=== PATIENT | female | born 1955 | race Caucasian/White ===

== ENCOUNTER 2017-08-15 17:12 | Emergency (ER) | payer OTHER ==
[2017-08-15 17:44] VITALS: BP 162/91; PULSE 82; TEMP 98.3; BMI 29.9
--- NOTE | 2017-08-15 17:45 | PDOC ---
Rapid Medical Evaluation Time Seen by Provider: 08/15/17 17:40 Medical Evaluation: Allergies Allergy/AdvReac Type Severity Reaction Status Date / Time No Known Allergies Allergy Verified 06/03/15 11:44 I have performed a brief in-person evaluation of this patient. The patient presents with a chief complaint of: cough since yesterday. left sided pleural pain with cough Pertinent physical exam findings: lungs are CTA. normal respirations. very intermittent dry cough I have ordered the following: Nothing. The patient will proceed to the ED for further evaluation.
--- NOTE | 2017-08-15 18:21 | PDOC ---
History of Present Illness - General Chief Complaint: Pain Stated Complaint: SIDE PAIN Time Seen by Provider: 08/15/17 17:40 History Source: Patient Exam Limitations: No Limitations - History of Present Illness Initial Comments: 08/15/17 18:16 This is a 61-year-old woman with past medical history of CVA on Coumadin, hypertension, diabetes, mechanical aortic valve replacement who presents with 2 days of left-sided pleuritic chest pain while coughing. Patient states her was seen and evaluated for her Darline enteritis on August 11. Patient states she started to express is pain on August 12 accompanied with mild fever and chills and generalized fatigue which caused her to sleep through the Suz[place] celebration an epidural Day. She states the fever and fatigue have resolved but she now has this left-sided pleuritic pain while coughing. Patient reports she has been experiencing a dry cough since August 12. Past History - Past Medical History Allergies/Adverse Reactions: Allergies Allergy/AdvReac Type Severity Reaction Status Date / Time No Known Allergies Allergy Verified 08/15/17 17:44 Home Medications: Ambulatory Orders Gabapentin 300 mg PO DAILY 06/03/15 Metformin HCl 500 mg PO BID 06/03/15 Warfarin Sodium [Coumadin] 7 mg PO DAILY 06/03/15 Atorvastatin Ca [Lipitor] 40 mg PO HS 08/15/17 Enoxaparin Sodium [Lovenox] 80 mg SQ ASDIR 08/15/17 Insulin NPH Human Isophane [Humulin N] 100 unit SQ ASDIR 08/15/17 Levothyroxine [Synthroid -] 25 mcg PO DAILY 08/15/17 Lisinopril [Prinivil -] 40 mg PO DAILY 08/15/17 Mirtazapine 30 mg PO ASDIR 08/15/17 Nifedipine [Procardia Xl] 30 mg PO ASDIR 08/15/17 CVA: Yes (X2 RIGHT RESUDIAL WEAKNESS) COPD: No Diabetes: Yes HTN: Yes - Surgical History Cardiac Surgery: Yes (VALVE REPLACEMENT) - Immunization History Immunization Up to Date: Yes - Suicide/Smoking/Psychosocial Hx Smoking History: Never smoked Hx Alcohol Use: No Drug/Substance Use Hx: No Review of Systems - Review of Systems Able to Perform ROS?: Yes Is the patient limited Mongolian proficient: No Constitutional: Yes: See HPI HEENTM: No: Symptoms Reported Respiratory: Yes: See HPI Cardiac (ROS): No: Symptoms Reported ABD/GI: No: Symptoms Reported : No: Symptoms Reported Musculoskeletal: No: Symptoms Reported Integumentary: No: Symptoms Reported Neurological: No: Symptoms reported Endocrine: No: Symptoms Reported Hematologic/Lymphatic: No: Symptoms Reported *Physical Exam - Vital Signs Last Vital Signs Temp Pulse Resp BP Pulse Ox 98.3 F 82 20 162/91 97 08/15/17 17:40 08/15/17 17:40 08/15/17 17:40 08/15/17 17:40 08/15/17 17:40 - Physical Exam General Appearance: Yes: Appropriately Dressed. No: Apparent Distress HEENT: positive: TITO, Pharynx Normal Neck: positive: Trachea midline. negative: Stridor Respiratory/Chest: positive: Chest Tender (5th intercostal at mid axillilary line), Lungs Clear, Normal Breath Sounds. negative: Respiratory Distress, Accessory Muscle Use Cardiovascular: positive: Regular Rhythm, Regular Rate. negative: Murmur Gastrointestinal/Abdominal: positive: Normal Bowel Sounds, Soft. negative: Tender Extremity: positive: Normal Capillary Refill, Normal Inspection Integumentary: positive: Normal Color, Dry, Warm Neurologic: positive: Fully Oriented, Alert, Motor Strength 5/5 ED Treatment Course - RADIOLOGY Radiology Studies Ordered: Category Date Time Status CHEST PA & LAT [RAD] Stat Radiology 08/15/17 18:16 Ordered Medical Decision Making - Medical Decision Making 08/15/17 18:18 A/P: This is a 61-year-old woman with past medical history of CVA on Coumadin, hypertension, diabetes, mechanical aortic valve replacement who presents with 2 days of left-sided pleuritic chest pain while coughing. Patient states her was seen and evaluated for her Darline enteritis on August 11. Patient states she started to express is pain on August 12 accompanied with mild fever and chills and generalized fatigue which caused her to sleep through the s [employer] celebration an epidural Day. She states the fever and fatigue have resolved but she now has this left-sided pleuritic pain while coughing. Patient reports she has been experiencing a dry cough since August 12. Tender to palpation over the fifth rib in the midaxillary line. Patient did not cough during exam. Lungs clear to auscultation bilaterally. Patient speaking in long full sentences. Respirations are even and unlabored. No sensory muscle use use. Regular rate and rhythm. No murmur, rub or gallop is appreciated. Mechanical valve heard on auscultation. Abdomen soft nontender nondistended. Differential diagnosis include costochondritis versus pneumonia I'll perform a chest x-ray to evaluate for pneumonia. I will reevaluate patient after all testing is completed. 08/15/17 18:50 X-rays read by me: Cardiac silhouette is within normal limits. Surgical agapito visualized. Customer gargles clear. No consolidations or infiltrates noted. I will discharge patient home with strict return precautions. Patient is to take Motrin or Tylenol for pain. *DC/Admit/Observation/Transfer Diagnosis at time of Disposition: Costal chondritis - Discharge Dispostion Disposition: HOME Condition at time of disposition: Stable Admit: No - Referrals - Patient Instructions Additional Instructions: Take Tylenol or Motrin as needed for pain. Follow manufacturers instructions for appropriate dosage. Keep well-hydrated. Return to emergency department for shortness of breath, chest pain, fevers, difficulty breathing or any other concerns. Thank you very much for choosing us to provide your emergent healthcare needs. - Post Discharge Activity
== END 2017-08-15 19:07 | disposition home or self-care (01) ==
LOC: JERFT 17:12
DX: M94.0 Chondrocostal junction syndrome [Tietze] (principal); I10 Essential (primary) hypertension; M10.9 Gout, unspecified; Z79.4 Long term (current) use of insulin; I69.851 Hemiplegia and hemiparesis following other cerebrovascular disease affecting right dominant side; I11.9 Hypertensive heart disease without heart failure; Z95.4 Presence of other heart-valve replacement
CPT/HCPCS: 71046-TC; 99281-25

== ENCOUNTER 2018-04-07 15:58 | Emergency (ER) | payer OTHER ==
[2018-04-07 16:04] VITALS: BMI 29.9
[2018-04-07] MEDS ORDERED: diphenhydrAMINE HCL 25 MG CAPSULE (FP) PO ONE ×2 (16:32→16:36)
--- NOTE | 2018-04-07 16:40 | PDOC ---
History of Present Illness - General History Source: Patient Exam Limitations: No Limitations - History of Present Illness Initial Comments: 04/07/18 16:35 The patient is a 62F with a PMH of CVA, HTN, DM, mechanical aortic valve replacement who presents to the ER with complaints of pain in her legs. The patient states that 3 days ago, she felt bug bites on her R medial knee and L medial ankle. Since then, she has been itching them. Today, she woke up and felt like they were swollen and she felt generalized weakness. <Tino Quiñonez - Last Filed: 04/07/18 16:35> <Acacia Whitman - Last Filed: 04/07/18 18:28> - General Chief Complaint: Redness To Affected Area Stated Complaint: BOTH LEG PAIN Time Seen by Provider: 04/07/18 16:16 Past History - Past Medical History Cardiac Disorders: Yes (heart valve) CVA: Yes (X2 RIGHT RESUDIAL WEAKNESS) COPD: No Diabetes: Yes HTN: Yes - Surgical History Cardiac Surgery: Yes (VALVE REPLACEMENT) - Immunization History Immunization Up to Date: Yes - Suicide/Smoking/Psychosocial Hx Smoking History: Never smoked Hx Alcohol Use: No Drug/Substance Use Hx: No <Tino Quiñonez - Last Filed: 04/07/18 16:35> <Acacia Whitman - Last Filed: 04/07/18 18:28> - Past Medical History Allergies/Adverse Reactions: Allergies Allergy/AdvReac Type Severity Reaction Status Date / Time No Known Allergies Allergy Verified 08/15/17 17:44 Home Medications: Ambulatory Orders Gabapentin 300 mg PO DAILY 06/03/15 Warfarin Sodium [Coumadin] 7 mg PO DAILY 06/03/15 Atorvastatin Ca [Lipitor] 40 mg PO HS 08/15/17 Levothyroxine [Synthroid -] 25 mcg PO DAILY 08/15/17 Lisinopril [Prinivil -] 40 mg PO DAILY 08/15/17 Nifedipine [Procardia Xl] 30 mg PO ASDIR 08/15/17 Aspirin [Aspirin EC] 81 mg PO DAILY 04/07/18 Cephalexin [Keflex] 500 mg PO BID 5 Days #10 capsule 04/07/18 Glyburide/Metformin HCl [Glyburide-Metformin 5-500 mg] 1 each PO ASDIR 04/07/18 Ibuprofen 600 mg PO QID PRN 04/07/18 Insulin Glargine,Hum.rec.anlog [Lantus] 0 unit SQ ASDIR 04/07/18 Pioglitazone HCl 45 mg PO ASDIR 04/07/18 Ranitidine [Zantac -] 75 mg PO DAILY 04/07/18 *Physical Exam - Vital Signs Last Vital Signs Temp Pulse Resp BP Pulse Ox 98.6 F 86 18 132/51 100 04/07/18 16:01 04/07/18 16:01 04/07/18 16:01 04/07/18 16:01 04/07/18 16:01 <Tino Quiñonez - Last Filed: 04/07/18 16:35> - Vital Signs Last Vital Signs Temp Pulse Resp BP Pulse Ox 98.6 F 86 18 132/51 100 04/07/18 16:01 04/07/18 16:01 04/07/18 16:01 04/07/18 16:01 04/07/18 16:01 <Acacia Whitman - Last Filed: 04/07/18 18:28> ED Treatment Course - LABORATORY CBC & Chemistry Diagram: 04/07/18 17:05 04/07/18 17:05 - ADDITIONAL ORDERS Additional order review: Laboratory Results 04/07/18 04/07/18 17:05 17:05 PT with INR 50.90 H INR 4.50 H* Sodium 142 Potassium 3.8 Chloride 107 Carbon Dioxide 26 Anion Gap 9 BUN 13 Creatinine 0.7 Creat Clearance w eGFR > 60 Random Glucose 119 H Calcium 8.5 Total Bilirubin 0.4 AST 23 ALT 30 Alkaline Phosphatase 95 Total Protein 6.8 Albumin 3.4 04/07/18 17:05 RBC 4.67 MCV 82.4 MCHC 33.3 RDW 14.9 MPV 8.4 Neutrophils % 66.5 Lymphocytes % 22.2 Monocytes % 7.4 Eosinophils % 2.4 Basophils % 1.5 - Medications Given in the ED: ED Medications Discontinued Medications Generic Name Dose Route Start Last Admin Trade Name Freq PRN Reason Stop Dose Admin Diphenhydramine HCl 25 mg 04/07/18 16:32 04/07/18 16:51 Benadryl - PO 04/07/18 16:33 25 mg ONCE ONE Administration <Acacia Whitman - Last Filed: 04/07/18 18:28> *DC/Admit/Observation/Transfer <Tino Quiñonez - Last Filed: 04/07/18 16:35> <Acacia Whitman - Last Filed: 04/07/18 18:28> Diagnosis at time of Disposition: Cellulitis, Insect bite - Discharge Dispostion Disposition: HOME Condition at time of disposition: Improved - Prescriptions Prescriptions: Cephalexin [Keflex] 500 mg PO BID 5 Days #10 capsule - Patient Instructions Printed Discharge Instructions: Insect Bites and Stings (Alternative Therapy) Additional Instructions: you should hold your coumadin dose for one day. then you can take keflex 500 mg twice daily x 5 days. return for any problems or concerns. you should follow up with your doctor in 2 - 3 days to re check your coumadin levels. take benadryl 25mg ever 6 hrs as needed for itching.
[2018-04-07 17:13] LABS: BASO % 1.5 % (0-2.0); EOS % 2.4 % (0-4.5); HEMATOCRIT 38.4 % (32.4-45.2); HEMOGLOBIN 12.8 GM/dL (10.7-15.3); LYMPH % 22.2 % (8-40); MCH 27.4 pg (25.7-33.7); MCHC 33.3 g/dl (32.0-36.0); MEAN CELL VOLUME 82.4 fl (80-96); MEAN PLT VOLUME 8.4 fl (7.5-11.1); MONO % 7.4 % (3.8-10.2); NEUT % 66.5 % (42.8-82.8); PLATELET COUNT 227 K/MM3 (134-434); RBC 4.67 M/mm3 (3.60-5.2); RDW 14.9 % (11.6-15.6); WHITE BLOOD COUNT 7.8 K/mm3 (4.0-10.0)
--- NOTE | 2018-04-07 17:31 | PDOC ---
Attending Attestation - Resident Resident Name: Tino Quiñonez - ED Attending Attestation I have performed the following: I have examined & evaluated the patient, The case was reviewed & discussed with the resident, I agree w/resident's findings & plan, Exceptions are as noted - HPI HPI: 04/07/18 17:27 62 yo F with h/o mitral valv replacemetn DM HTN on coumadin here with c/o bug bit to right inner thigh. noted 4 days ago. has erythema, itching. was scratching. today felt redness was worse, started feeling fatigued, achy. no f/ c no cp no sob. was visiting family when she noticed it her mother who just . - Physicial Exam PE: 04/07/18 17:28 awake alert lungs clear bilaterally heart rrr no mrg. abd soft nt nd. ext wwp. right inner thigh with purpuritic, warm erythematous area, warmth. no crepitus. no appreciated leg edema. 2 + dp/ pt. - Medical Decision Making 04/07/18 17:29 differential cellulitis, allergic reaction to bug bite, brusing from being on coumadin. plan labs benadryl for itching. will jeannieley treat with abx for cellulitis. topical steroid.
[2018-04-07 17:37] LABS: ALBUMIN 3.4 g/dl (3.4-5.0); ALK PHOS 95 U/L (45-117); ANION GAP 9 MMOL/L (8-16); BILIRUBIN,TOTAL 0.4 mg/dL (0.2-1.0); BLOOD UREA NITROGEN 13 mg/dL (7-18); CALCIUM 8.5 mg/dL (8.5-10.1); CHLORIDE 107 mmol/L (98-107); CO2 26 mmol/L (21-32); CREATININE 0.7 mg/dL (0.55-1.02); GLUCOSE,RANDOM 119 mg/dL (74-106); POTASSIUM 3.8 mmol/L (3.5-5.1); PROTHROMBIN TIME (PATIENT) 50.9 SEC (9.7-13.0); SGOT/AST 23 U/L (15-37); SGPT/ALT 30 U/L (12-78); SODIUM 142 mmol/L (136-145); TOT PROT 6.8 g/dl (6.4-8.2)
[2018-04-07 17:40] LABS: INR 4.5 (0.83-1.09)
[2018-04-07] MEDS ORDERED: SULFAMETHOXAZOLE/TRIMETHOPRIM 800MG/160MG D.S. TABLET PO ONE (18:21)
[2018-04-07] MEDS ORDERED: CEPHALEXIN MONOHYDRATE 500 MG CAPSULE (UD) PO ONE (18:28)
[2018-04-07] MEDS ORDERED: CEPHALEXIN MONOHYDRATE 500 MG CAPSULE (UD) ONE (18:50)
[2018-04-07] MEDS ORDERED: SULFAMETHOXAZOLE/TRIMETHOPRIM 800MG/160MG D.S. TABLET ONE (18:51)
[2018-04-07 19:01] VITALS: BP 147/79; PULSE 69; TEMP 97.9
== END 2018-04-07 19:00 | disposition home or self-care (01) ==
LOC: JER 15:58
DX: S80.862A Insect bite (nonvenomous), left lower leg, initial encounter (principal); S80.861A Insect bite (nonvenomous), right lower leg, initial encounter; L03.116 Cellulitis of left lower limb; L03.115 Cellulitis of right lower limb; W57.XXXA Bitten or stung by nonvenomous insect and other nonvenomous arthropods, initial encounter; Y93.89 Activity, other specified; Y92.89 Other specified places as the place of occurrence of the external cause; Y99.8 Other external cause status; I10 Essential (primary) hypertension; E11.9 Type 2 diabetes mellitus without complications; I69.851 Hemiplegia and hemiparesis following other cerebrovascular disease affecting right dominant side; Z95.4 Presence of other heart-valve replacement; Z79.01 Long term (current) use of anticoagulants; Z79.4 Long term (current) use of insulin; Z79.84 Long term (current) use of oral hypoglycemic drugs
CPT/HCPCS: 36415; 80053; 85025; 85610; 99281-25

== ENCOUNTER 2018-07-03 21:20 | Emergency (ER) | payer OTHER ==
--- NOTE | 2018-07-03 21:32 | PDOC ---
Rapid Medical Evaluation Time Seen by Provider: 07/03/18 21:28 Medical Evaluation: Allergies Allergy/AdvReac Type Severity Reaction Status Date / Time No Known Allergies Allergy Verified 08/15/17 17:44 07/03/18 21:29 I have performed a brief in-person evaluation of this patient. The patient presents with a chief complaint of: b/l knee pain and right wrist pain s/p trip and fall. Td-UTD Pertinent physical exam findings: swelling and tenderness to radial aspect of right wrist I have ordered the following: xrays The patient will proceed to the ED for further evaluation. Discharge Disposition - Diagnosis Wrist pain, right - Referrals - Patient Instructions - Post Discharge Activity
[2018-07-03] MEDS ORDERED: IBUPROFEN 600 MG TABLET (FP) PO ONE ×2 (21:33→21:53)
[2018-07-03 21:35] VITALS: BP 141/75; PULSE 83; TEMP 97.8; BMI 29.8
--- NOTE | 2018-07-03 22:11 | PDOC ---
History of Present Illness - General Chief Complaint: Injury Stated Complaint: FALL,INJURY Time Seen by Provider: 07/03/18 21:28 - History of Present Illness Initial Comments: 07/03/18 22:07 62-year-old female with a past medical history significant for mechanical valve she is on heparin and Coumadin diabetes as well as diabetic neuropathy hypertension presents for evaluation after a fall. She states she fell onto her left knee also breaking her fall with her right hand she fell in a closed fist position on the right hand in the anterior aspect of her right knee. She did not hit her head. Her bigger complaint is right hand pain. Past History - Past Medical History Allergies/Adverse Reactions: Allergies Allergy/AdvReac Type Severity Reaction Status Date / Time No Known Allergies Allergy Verified 07/03/18 21:35 Home Medications: Ambulatory Orders Gabapentin 300 mg PO DAILY 06/03/15 Warfarin Sodium [Coumadin] 7 mg PO DAILY 06/03/15 Atorvastatin Ca [Lipitor] 40 mg PO HS 08/15/17 Levothyroxine [Synthroid -] 25 mcg PO DAILY 08/15/17 Lisinopril [Prinivil -] 40 mg PO DAILY 08/15/17 Nifedipine [Procardia Xl] 30 mg PO ASDIR 08/15/17 Glyburide/Metformin HCl [Glyburide-Metformin 5-500 mg] 1 each PO ASDIR 04/07/18 Insulin Glargine,Hum.rec.anlog [Lantus] 0 unit SQ ASDIR 04/07/18 Pioglitazone HCl 45 mg PO ASDIR 04/07/18 Ranitidine [Zantac -] 75 mg PO DAILY 04/07/18 Cardiac Disorders: Yes (heart valve) CVA: Yes (X2 RIGHT RESUDIAL WEAKNESS) COPD: No Diabetes: Yes HTN: Yes - Surgical History Cardiac Surgery: Yes (VALVE REPLACEMENT) - Immunization History Immunization Up to Date: Yes - Suicide/Smoking/Psychosocial Hx Smoking History: Never smoked Have you smoked in the past 12 months: No Information on smoking cessation initiated: No Hx Alcohol Use: No Drug/Substance Use Hx: No Substance Use Type: None Review of Systems - Review of Systems Musculoskeletal: Yes: Joint Pain *Physical Exam - Vital Signs Last Vital Signs Temp Pulse Resp BP Pulse Ox 97.8 F 83 18 141/75 100 07/03/18 21:33 07/03/18 21:33 07/03/18 21:33 18 21:33 07/03/18 21:33 - Physical Exam Comments: 07/03/18 22:08 Right hand skin color and temperature are normal there is swelling about the MCPJ's. There is full range of motion of all the fingers diffuse tenderness throughout the dorsum of the hand no gross sensorimotor deficits she's neurovascularly intact. There is a small superficial abrasion on the anterior aspect of the left knee full range of motion no instability buying calf are soft and nontender she has no gross sensorimotor deficits she's neurovascularly intact ED Treatment Course - Medications Given in the ED: ED Medications Discontinued Medications Generic Name Dose Route Start Last Admin Trade Name Freq PRN Reason Stop Dose Admin Ibuprofen 600 mg 07/03/18 21:33 07/03/18 22:01 Motrin - PO 07/03/18 21:34 600 mg ONCE ONE Administration Medical Decision Making - Medical Decision Making 07/03/18 22:09 X-ray show a left distal radius fracture which is old the distal radial inclination is off and shortened fractures well-healed no fracture about the MCPJ's *DC/Admit/Observation/Transfer Diagnosis at time of Disposition: Knee abrasion, Knee contusion, Hand contusion Diagnosis at time of Disposition: (Ruled Out): Wrist pain, right - Discharge Dispostion Disposition: HOME Condition at time of disposition: Stable Decision to Admit order: No - Referrals Referrals: Dwayne Marquis MD [Staff Physician] - - Patient Instructions Printed Discharge Instructions: How to Prevent Falls, Contusion, DI for Abrasion Additional Instructions: Return to the emergency room should her pain increase or go unresolved otherwise follow-up with orthopedic surgery in 2-3 days for further evaluation and treatment options. The abrasion on any can be clean with soap and water and left open to air. Because of the medications you are taking you can only take Tylenol for pain at this point please take Tylenol as directed should you needed - Post Discharge Activity
== END 2018-07-03 22:14 | disposition home or self-care (01) ==
LOC: JERFT 21:20
DX: S60.221A Contusion of right hand, initial encounter (principal); S80.02XA Contusion of left knee, initial encounter; S80.01XA Contusion of right knee, initial encounter; S80.212A Abrasion, left knee, initial encounter; W01.0XXA Fall on same level from slipping, tripping and stumbling without subsequent striking against object, initial encounter; Y93.89 Activity, other specified; Y92.89 Other specified places as the place of occurrence of the external cause; I10 Essential (primary) hypertension; E11.42 Type 2 diabetes mellitus with diabetic polyneuropathy; Z79.84 Long term (current) use of oral hypoglycemic drugs; Z79.01 Long term (current) use of anticoagulants; Z95.2 Presence of prosthetic heart valve; Z79.4 Long term (current) use of insulin; I69.851 Hemiplegia and hemiparesis following other cerebrovascular disease affecting right dominant side
CPT/HCPCS: 73110-TC-RT-FY; 73130-TC-RT-FY; 99281-25

== ENCOUNTER 2018-08-18 22:20 | Observation (INO) | payer OTHER ==
--- NOTE | 2018-08-18 22:23 | PDOC ---
History of Present Illness - General Stated Complaint: CHEST PAIN Time Seen by Provider: 08/18/18 22:23 - History of Present Illness Initial Comments: 08/18/18 22:35 Ms. 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 Patient reports she has been otherwise asymptomatic. The patient denies chest pain, shortness of breath, headache and dizziness. Denies fever, chills, nausea, vomit, diarrhea and constipation. Denies dysuria, frequency, urgency and hematuria. Past History - Past Medical History Allergies/Adverse Reactions: Allergies Allergy/AdvReac Type Severity Reaction Status Date / Time No Known Allergies Allergy Verified 07/03/18 21:35 Home Medications: Ambulatory Orders Gabapentin 300 mg PO DAILY 06/03/15 Warfarin Sodium [Coumadin] 7 mg PO DAILY 06/03/15 Atorvastatin Ca [Lipitor] 40 mg PO HS 08/15/17 Levothyroxine [Synthroid -] 25 mcg PO DAILY 08/15/17 Lisinopril [Prinivil -] 40 mg PO DAILY 08/15/17 Nifedipine [Procardia Xl] 30 mg PO ASDIR 08/15/17 Glyburide/Metformin HCl [Glyburide-Metformin 5-500 mg] 1 each PO ASDIR 04/07/18 Insulin Glargine,Hum.rec.anlog [Lantus] 0 unit SQ ASDIR 04/07/18 Pioglitazone HCl 45 mg PO ASDIR 04/07/18 Ranitidine [Zantac -] 75 mg PO DAILY 04/07/18 Cardiac Disorders: Yes (heart valve) CVA: Yes (X2 RIGHT RESUDIAL WEAKNESS) COPD: No Diabetes: Yes HTN: Yes - Surgical History Cardiac Surgery: Yes (VALVE REPLACEMENT) - Immunization History Immunization Up to Date: Yes - Suicide/Smoking/Psychosocial Hx Smoking History: Never smoked Have you smoked in the past 12 months: No Hx Alcohol Use: No Drug/Substance Use Hx: No Substance Use Type: None Review of Systems - Review of Systems Comments:: 08/18/18 22:40 GENERAL/CONSTITUTIONAL: No fever or chills. No weakness. HEAD, EYES, EARS, NOSE AND THROAT: No change in vision. No ear pain or discharge. No sore throat. CARDIOVASCULAR: +Palpitations as described. No chest pain or shortness of breath RESPIRATORY: No cough, wheezing, or hemoptysis. GASTROINTESTINAL: No nausea, vomiting, diarrhea or constipation. GENITOURINARY: No dysuria, frequency, or change in urination. MUSCULOSKELETAL: No joint or muscle swelling or pain. No neck or back pain. SKIN: No rash NEUROLOGIC: No headache, vertigo, loss of consciousness, or change in strength/ sensation. ENDOCRINE: No increased thirst. No abnormal weight change HEMATOLOGIC/LYMPHATIC: No anemia, easy bleeding, or history of blood clots. ALLERGIC/IMMUNOLOGIC: No hives or skin allergy. *Physical Exam - Physical Exam Comments: 08/18/18 22:40 GENERAL: Awake, alert, and fully oriented, in no acute distress HEAD: No signs of trauma, normocephalic, atraumatic EYES: PERRLA, EOMI, sclera anicteric, conjunctiva clear ENT: Auricles normal inspection, hearing grossly normal, nares patent, oropharynx clear without exudates. Moist mucosa NECK: Normal ROM, supple, no lymphadenopathy, JVD, or masses LUNGS: No distress, speaks full sentences, clear to auscultation bilaterally HEART: Regular rate and rhythm, normal S1 and S2, no murmurs, rubs or gallops, peripheral pulses normal and equal bilaterally. ABDOMEN: Soft, nontender, normoactive bowel sounds. No guarding, no rebound. No masses EXTREMITIES: Normal inspection, Normal range of motion, no edema. No clubbing or cyanosis. NEUROLOGICAL: Cranial nerves II through XII grossly intact. Normal speech, normal gait, no focal sensorimotor deficits SKIN: Warm, Dry, normal turgor, no rashes or lesions noted. Heart Score/ECG Review - History History: Moderately suspicious - Electrocardiogram EKG: Non specific repolarization disturbance - Age Age: 45-65 - Risk Factors Risk Factors Heart Score: Yes Hx Hypercholesterolemia, Yes Hx Hypertension, Yes Hx Diabetes Based on the list above the patient has:: >/=3 risk factors or Hx atherosclerotic disease - Troponin Troponin: 1-3x normal limit - Score Heart Score - Total: 6 ED Treatment Course - LABORATORY CBC & Chemistry Diagram: 08/18/18 23:00 08/18/18 23:00 Medical Decision Making - Medical Decision Making 08/18/18 23:26 Ms. Vasquez is a 62 yo female w/ pmh as described who presents for evaluation of symptoms concerning for ACS vs. anxiety vs. infectious process vs. mechanical valve problem. Patient well appearing at presentation. Cardiac, infectious, and electrolyte labs sent for evaluation. 08/19/18 01:05 Labs concerning for elevated troponin as below. Will admit patient for serial troponins and cardiac f/u. Laboratory Results - last 24 hr 08/18/18 08/18/18 08/18/18 23:00 23:00 23:00 WBC 7.8 RBC 4.90 Hgb 13.8 Hct 39.9 MCV 81.4 MCH 28.1 MCHC 34.6 RDW 15.1 Plt Count 237 MPV 8.9 Absolute Neuts (auto) 4.9 Neutrophils % 62.7 Lymphocytes % 27.4 D Monocytes % 7.3 Eosinophils % 1.8 Basophils % 0.8 Nucleated RBC % 0 PT with INR 32.50 H INR 2.73 H Sodium 137 Potassium 4.4 Chloride 104 Carbon Dioxide 27 Anion Gap 7 L BUN 22 H Creatinine 0.9 Creat Clearance w eGFR > 60 Random Glucose 345 H* Calcium 8.2 L Total Bilirubin 0.3 AST 27 ALT 33 Alkaline Phosphatase 132 H Creatine Kinase 174 Creatine Kinase Index 0.9 CK-MB (CK-2) 1.6 Troponin I 0.06 H Total Protein 6.8 Albumin 3.2 L *DC/Admit/Observation/Transfer Diagnosis at time of Disposition: Elevated troponin, Palpitations - Discharge Dispostion Decision to Admit order: Yes - Referrals - Patient Instructions - Post Discharge Activity
[2018-08-18 22:45] VITALS: BMI 31.8
--- NOTE | 2018-08-18 22:46 | PDOC ---
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 She notes since arriving to the hospital she has been asymptomatic. She denies recent chest pain or shortness of breath. She denies recent fevers, chills, headache or dizziness. She denies recent nausea, vomit, diarrhea or constipation. She denies recent dysuria, frequency, urgency or hematuria. Allergies: NKDA - Physicial Exam PE: 08/18/18 23:28 GENERAL: Awake, alert, and fully oriented, in no acute distress HEAD: No signs of trauma ENT: Auricles normal inspection, hearing grossly normal, nares patent, oropharynx clear without exudates. Moist mucosa NECK: Normal ROM, supple, no lymphadenopathy, JVD, or masses LUNGS: Breath sounds equal, clear to auscultation bilaterally. No wheezes, and no crackles HEART: Regular rate and rhythm, normal S1 and S2, no murmurs, rubs or gallops ABDOMEN: Soft, nontender, normoactive bowel sounds. No guarding, no rebound. No masses EXTREMITIES: Normal range of motion, no edema. No clubbing or cyanosis. No cords, erythema, or tenderness NEUROLOGICAL: Cranial nerves II through XII grossly intact. Normal speech, normal gait SKIN: Warm, Dry, normal turgor, no rashes or lesions noted. <Ronnie Woodard - Last Filed: 08/18/18 23:28> - Resident Resident Name: Tadeo Sawyer - ED Attending Attestation I have performed the following: I have examined & evaluated the patient, The case was reviewed & discussed with the resident, I agree w/resident's findings & plan - Medical Decision Making 08/18/18 23:37 Pt comes with palpitations that went on for an hour or more; pt is upset because her palpitations in the past were related to he caffeine intake. Pt states that she hasn't had caff today; only drinking water and she has never had palpitaions that lasts so long. She has sig. cardiac hx with valve replacement 22 yrs ago when she had rheumatic valve dz. 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 <Emi Briscoe - Last Filed: 08/18/18 23:39> Heart Score/ECG Review - ECG Intrepretation Rhythm: Irregularly Irregular - [place]: Normal - P and MD Delta Wave(s) Present: No WPW: No - QRS Poor R Wave Progression: No Q Wave Present: No - ECG Impressions Normal ECG: No Non-specific ST Elevation: No Ischemic Changes: No Comment:: 08/18/18 22:45 Patient has no P waves. <Emi Briscoe - Last Filed: 08/18/18 23:39> Attestations - Attestations 08/18/18 23:01 Documentation prepared by Ronnie Woodard, acting as veterinary medical officer for Emi Briscoe MD. <Ronnie Woodard - Last Filed: 08/18/18 23:28>
[2018-08-18 23:20] LABS: BASO % 0.8 % (0-2.0); EOS % 1.8 % (0-4.5); HEMATOCRIT 39.9 % (32.4-45.2); HEMOGLOBIN 13.8 GM/dL (10.7-15.3); LYMPH % 27.4 % (8-40); MCH 28.1 pg (25.7-33.7); MCHC 34.6 g/dl (32.0-36.0); MEAN CELL VOLUME 81.4 fl (80-96); MEAN PLT VOLUME 8.9 fl (7.5-11.1); MONO % 7.3 % (3.8-10.2); NEUT % 62.7 % (42.8-82.8); PLATELET COUNT 237 K/MM3 (134-434); RDW 15.1 % (11.6-15.6); WHITE BLOOD COUNT 7.8 K/mm3 (4.0-10.0)
[2018-08-18 23:34] LABS: INR 2.73 (0.83-1.09); PROTHROMBIN TIME (PATIENT) 32.5 SEC (9.7-13.0)
[2018-08-19 00:26] LABS: ALBUMIN 3.2 g/dl (3.4-5.0); ALK PHOS 132 U/L (45-117); ANION GAP 7 MMOL/L (8-16); BILIRUBIN,TOTAL 0.3 mg/dL (0.2-1); BLOOD UREA NITROGEN 22 mg/dL (7-18); CALCIUM 8.2 mg/dL (8.5-10.1); CHLORIDE 104 mmol/L (98-107); CO2 27 mmol/L (21-32); CREATININE 0.9 mg/dL (0.55-1.3); POTASSIUM 4.4 mmol/L (3.5-5.1); SGOT/AST 27 U/L (15-37); SGPT/ALT 33 U/L (13-61); SODIUM 137 mmol/L (136-145); TOT PROT 6.8 g/dl (6.4-8.2)
[2018-08-19 01:03] LABS: GLUCOSE,RANDOM 345 mg/dL (74-106)
--- NOTE | 2018-08-19 02:29 | PN ---
Teaching Attending Note Name of Resident: Tangela Ortiz ATTENDING PHYSICIAN STATEMENT I saw and evaluated the patient. I reviewed the resident's note and discussed the case with the resident. I agree with the resident's findings and plan as documented. 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 She notes since arriving to the hospital she has been asymptomatic. She denies recent chest pain or shortness of breath. She denies recent fevers, chills, headache or dizziness. She denies recent nausea, vomit, diarrhea or constipation. She denies recent dysuria, frequency, urgency or hematuria. OBJECTIVE: Alert Vital Signs Period Temp Pulse Resp BP Sys/[place] Pulse Ox Last 24 Hr 98.2 F 79-79 19-19 124-124/68-68 99-99 HEENT: No Jaundice, eye redness or discharge, PERRLA, EOMI. Normocephalic, atraumatic. External ears are normal and hearing is grossly intact. No nasal discharge. Neck: Supple, nontender. No palpable adenopathy or thyromegaly. No JVD Chest: Good effort. Clear to auscultation and percussion. Heart: Regular. No S3, rub or murmur Abdomen: Not distended, soft, nontender and no HSM. No rebound or guarding. Normoactive bowel sounds. Ext: Peripheral pulses intact. No leg edema. Skin: Warm and dry. No petechiae, rash or ecchymosis. Neuro: Alert. Oriented x3. CN 2-12 grossly intact. Sensation grossly intact in all four extremities and DTR are symmetric. Home Medications Medication Instructions Recorded Gabapentin 300 mg PO DAILY 06/03/15 Warfarin Sodium [Coumadin] 7 mg PO DAILY 06/03/15 Atorvastatin Ca [Lipitor] 40 mg PO HS 08/15/17 Levothyroxine [Synthroid -] 25 mcg PO DAILY 08/15/17 Lisinopril [Prinivil -] 40 mg PO DAILY 08/15/17 Nifedipine [Procardia Xl] 30 mg PO ASDIR 08/15/17 Glyburide/Metformin HCl 1 each PO ASDIR 04/07/18 [Glyburide-Metformin 5-500 mg] Insulin Glargine,Hum.rec.anlog 0 unit SQ ASDIR 04/07/18 [Lantus] Pioglitazone HCl 45 mg PO ASDIR 04/07/18 Ranitidine [Zantac -] 75 mg PO DAILY 04/07/18 Abnormal Lab Results 08/18/18 08/18/18 23:00 23:00 PT with INR 32.50 H INR 2.73 H Anion Gap 7 L BUN 22 H Random Glucose 345 H* Calcium 8.2 L Alkaline Phosphatase 132 H Troponin I 0.06 H Albumin 3.2 L ASSESSMENT AND PLAN: 1. Palpitations, rule out ACS - No ischemic changes on EKG but troponin is elevated. Will admit to telemetry to trend troponin to rule out ACS. Will hold procardia XL in case it is contributing to palpitations (?reflex tachycardia), add metoprolol, continue aspirin, check TFT, ECHO, fasting lipids, urine toxicology and consult cardiology. 2. DM - For now, we will hold the home diabetes drugs and implement sliding scale insulin regimen. Provide comprehensive diabetes care with patient teaching and counseling about the importance of euglycemia, eye care and foot care. 3. Obesity - Will provide patient all the necessary assistance, counseling and positive reinforcement to facilitate weight loss. Consult floor hand. 4. DVT prophylaxis - On coumadin 5. Advance directives - Full code
--- NOTE | 2018-08-19 03:34 | HP ---
CHIEF COMPLAINT: Palpitations PCP: HISTORY OF PRESENT ILLNESS: 62 y/o F with PMHx of Mechanical Aortic Valve (On Coumadin), CVA (R sided residual weakness), DM, HTN, Hypothyroidism, HLD who was BIBEMS for Palpitations. Patient was with her family earlier today cooking in the kitchen. Around 3pm, she felt anxious and overlwelhmed due to so many people around her. Shortly after, she had sudden onset of palpitations that lasted until she arrived home around 7pm. Patient tried to go for a long walk and to calm herself down however these provided minimal relief. Upon arriving home, she contact EMS. She mentions this happened to her last year however at that time, the episodes lasted for minutes and reducing her caffeine intake helped these subside. Patient additionally endorses Shoulder and neck pain, SOB, intermittent blurry vision, chronic pins and needles below the mid calf b/l. She is unable to identify any triggers or alleviating factors. Denies any recent increased Stress in her life. Denies any hx of anxiety or panic attacks. Denies fevers, chills, chest pain, nausea, vomiting, diarrhea, constipation, decreased PO intake. Recent Travel: Denies PAST MEDICAL HISTORY: Mechanical Aortic Valve (On Coumadin; Rheumatic fever as child), CVA (R sided residual weakness), DM, HTN, HLD, Hypothyroidism PAST SURGICAL HISTORY: Aoritc Valve replacement (1995) Social History: Smoking: Denies Alcohol: Occasional Drugs: Denies Occupation: Housewife Ambulation: Cane Residence: House with Family Family History: Mother: DM, HTN, HLD, CVA, Uterine Ca Allergies No Known Allergies Allergy (Verified 07/03/18 21:35) HOME MEDICATIONS: Home Medications Medication Instructions Recorded Gabapentin 300 mg PO DAILY 06/03/15 Warfarin Sodium [Coumadin] 7 mg PO DAILY 06/03/15 Atorvastatin Ca [Lipitor] 40 mg PO HS 08/15/17 Levothyroxine [Synthroid -] 25 mcg PO DAILY 08/15/17 Lisinopril [Prinivil -] 40 mg PO DAILY 08/15/17 Nifedipine [Procardia Xl] 30 mg PO ASDIR 08/15/17 Glyburide/Metformin HCl 1 each PO ASDIR 04/07/18 [Glyburide-Metformin 5-500 mg] Insulin Glargine,Hum.rec.anlog 0 unit SQ ASDIR 04/07/18 [Lantus] Pioglitazone HCl 45 mg PO ASDIR 04/07/18 Ranitidine [Zantac -] 75 mg PO DAILY 04/07/18 REVIEW OF SYSTEMS As per HPI PHYSICAL EXAMINATION Vital Signs - 24 hr 08/18/18 08/18/18 22:20 22:21 Temperature 98.2 F Pulse Rate 79 79 Respiratory 19 19 Rate Blood Pressure 124/68 124/68 O2 Sat by Pulse 99 99 Oximetry (%) GENERAL: A&Ox3, NAD HEAD: NCAT EYES: PERRL, EOMI EARS, NOSE, THROAT: Oropharynx clear without exudates. Moist mucous membranes. NECK: No JVD LUNGS: CTA b/l, No wheezes, no crackles HEART: Regular rate and rhythm, normal S1 and S2 without murmur ABDOMEN: Obese, Soft, nontender, not distended, + bowel sounds, no guarding MUSCULOSKELETAL: No CVA tenderness. EXTREMITIES: 2+ pulses, No edema. NEUROLOGICAL: Cranial nerves II-XII intact. Normal speech. Muscle strength 1/5 RUE, 4/5 LUE, 2/5 RLE, 3/5 LLE. SKIN: Warm, dry Laboratory Results - last 24 hr 08/18/18 08/18/18 08/18/18 23:00 23:00 23:00 WBC 7.8 RBC 4.90 Hgb 13.8 Hct 39.9 MCV 81.4 MCH 28.1 MCHC 34.6 RDW 15.1 Plt Count 237 MPV 8.9 Absolute Neuts (auto) 4.9 Neutrophils % 62.7 Lymphocytes % 27.4 D Monocytes % 7.3 Eosinophils % 1.8 Basophils % 0.8 Nucleated RBC % 0 PT with INR 32.50 H INR 2.73 H Sodium 137 Potassium 4.4 Chloride 104 Carbon Dioxide 27 Anion Gap 7 L BUN 22 H Creatinine 0.9 Creat Clearance w eGFR > 60 Random Glucose 345 H* Calcium 8.2 L Total Bilirubin 0.3 AST 27 ALT 33 Alkaline Phosphatase 132 H Creatine Kinase 174 Creatine Kinase Index 0.9 CK-MB (CK-2) 1.6 Troponin I 0.06 H Total Protein 6.8 Albumin 3.2 L ASSESSMENT/PLAN: 62 y/o F with PMHx of Mechanical Aortic Valve (On Coumadin), CVA (R sided residual weakness), DM, HTN, Hypothyroidism, HLD presents for Palpitations #Palpitations + Troponins -Unclear Etiology however must r/o ACS -Trop 0.06 --> 0.05 -Initial EKG reveals sinus rhythm with sinus Arrhythmia, VR 76, QTc 445; Repeat EKG -UTox negative -Echo, Lipid panel, TSH pending -Cardiology (Dr. Prado) consulted -Will hold home dose procardia as AE include reflex tachycardia -Started on Toprol XL 50mg BID -ASA 81mg -Tele Monitoring #Mechanical Aortic Valve -INR 2.73 -Coumadin 7.5mg; Will need Med Rec -Daily INR Check #HTN, Controlled -Continue Lisinopril -Hold Procardia XL; Start Toprol XL #Hypothyroidism -Continue synthroid #DM -Inital BG 345 -ISS BGMs ACHS -A1c pending #FEN -PO Fluids -Lytes WNL -Sodium Controlled, Low cholesterol, diabetic diet #PPx -DVT: on Warfarin Dispo: Tele-Obs Visit type - Emergency Visit Emergency Visit: Yes ED Registration Date: 08/19/18 Care time: The patient presented to the Emergency Department on the above date and was hospitalized for further evaluation of their emergent condition. - New Patient This patient is new to me today: Yes Date on this admission: 08/19/18 - Critical Care Critical Care patient: No
[2018-08-19 06:28] LABS: BASO % 0.7 % (0-2.0); EOS % 3.2 % (0-4.5); HEMATOCRIT 38.3 % (32.4-45.2); HEMOGLOBIN 13.4 GM/dL (10.7-15.3); LYMPH % 33.1 % (8-40); MCH 28.3 pg (25.7-33.7); MCHC 34.9 g/dl (32.0-36.0); MEAN CELL VOLUME 81.1 fl (80-96); MEAN PLT VOLUME 8.9 fl (7.5-11.1); MONO % 8.1 % (3.8-10.2); NEUT % 54.9 % (42.8-82.8); PLATELET COUNT 219 K/MM3 (134-434); RBC 4.73 M/mm3 (3.60-5.2); RDW 14.9 % (11.6-15.6); WHITE BLOOD COUNT 6.6 K/mm3 (4.0-10.0)
[2018-08-19] MEDS ORDERED: INSULIN SLIDING SCALE (NOVOLOG) 1 VIAL SQ SCH (07:00)
[2018-08-19 07:11] LABS: INR 2.64 (0.83-1.09); PROTHROMBIN TIME (PATIENT) 31.5 SEC (9.7-13.0)
[2018-08-19 07:15] LABS: ALBUMIN 3.2 g/dl (3.4-5.0); ALK PHOS 125 U/L (45-117); ANION GAP 6 MMOL/L (8-16); BILIRUBIN,TOTAL 0.4 mg/dL (0.2-1); BLOOD UREA NITROGEN 19 mg/dL (7-18); CALCIUM 8.2 mg/dL (8.5-10.1); CHLORIDE 104 mmol/L (98-107); CHOLESTEROL 136 mg/dL (50-200); CO2 27 mmol/L (21-32); CREATININE 0.6 mg/dL (0.55-1.3); GLUCOSE,RANDOM 234 mg/dL (74-106); HDL CHOLESTEROL 55 mg/dL (40-60); MAGNESIUM 1.4 mg/dL (1.8-2.4); PHOSPHOROUS 3.3 mg/dL (2.5-4.9); SGOT/AST 26 U/L (15-37); SGPT/ALT 32 U/L (13-61); SODIUM 137 mmol/L (136-145); TOT PROT 6.5 g/dl (6.4-8.2); TRIGLYCERIDES 104 mg/dL (0-150)
[2018-08-19] MEDS ORDERED: INSULIN (NOVOLOG) ASPART 100 UNITS/ML 10ML VIAL ONE (07:36)
--- NOTE | 2018-08-19 09:19 | PN ---
Teaching Attending Note Name of Resident: Lauren Pagan ATTENDING PHYSICIAN STATEMENT I saw and evaluated the patient. I reviewed the resident's note and discussed the case with the resident. I agree with the resident's findings and plan as documented. SUBJECTIVE: Patient is feeling better, no further palpitations. OBJECTIVE: Vital Signs Temperature 97.8 F 08/19/18 05:30 Pulse Rate 73 08/19/18 05:30 Respiratory Rate 18 08/19/18 05:30 Blood Pressure 106/62 08/19/18 05:30 O2 Sat by Pulse Oximetry (%) 96 08/19/18 05:30 GENERAL: A&Ox3, NAD HEAD: NCAT EYES: PERRL, EOMI EARS, NOSE, THROAT: Oropharynx clear without exudates. Moist mucous membranes. NECK: No JVD LUNGS: CTA b/l, No wheezes, no crackles HEART: Regular rate and rhythm, normal S1 and S2 without murmur ABDOMEN: Obese, Soft, nontender, not distended, + bowel sounds, no guarding MUSCULOSKELETAL: No CVA tenderness. EXTREMITIES: 2+ pulses, No edema. NEUROLOGICAL: Cranial nerves II-XII intact. Normal speech. Muscle strength 1/5 RUE, 4/5 LUE, 2/5 RLE, 3/5 LLE. SKIN: Warm, dry CBCD WBC 6.6 K/mm3 (4.0-10.0) 08/19/18 05:00 RBC 4.73 M/mm3 (3.60-5.2) 08/19/18 05:00 Hgb 13.4 GM/dL (10.7-15.3) 08/19/18 05:00 Hct 38.3 % (32.4-45.2) 08/19/18 05:00 MCV 81.1 fl (80-96) 08/19/18 05:00 MCHC 34.9 g/dl (32.0-36.0) 08/19/18 05:00 RDW 14.9 % (11.6-15.6) 08/19/18 05:00 Plt Count 219 K/MM3 (134-434) 08/19/18 05:00 MPV 8.9 fl (7.5-11.1) 08/19/18 05:00 CMP Sodium 137 mmol/L (136-145) 08/19/18 06:00 Potassium 4.0 mmol/L (3.5-5.1) 08/19/18 06:00 Chloride 104 mmol/L (98-107) 08/19/18 06:00 Carbon Dioxide 27 mmol/L (21-32) 08/19/18 06:00 Anion Gap 6 MMOL/L (8-16) L 08/19/18 06:00 BUN 19 mg/dL (7-18) H 08/19/18 06:00 Creatinine 0.6 mg/dL (0.55-1.3) 08/19/18 06:00 Creat Clearance w eGFR > 60 (>60) 08/19/18 06:00 Random Glucose 234 mg/dL (74-106) H 08/19/18 06:00 Calcium 8.2 mg/dL (8.5-10.1) L 08/19/18 06:00 Total Bilirubin 0.4 mg/dL (0.2-1) 08/19/18 06:00 AST 26 U/L (15-37) 08/19/18 06:00 ALT 32 U/L (13-61) 08/19/18 06:00 Alkaline Phosphatase 125 U/L (45-117) H 08/19/18 06:00 Total Protein 6.5 g/dl (6.4-8.2) 08/19/18 06:00 Albumin 3.2 g/dl (3.4-5.0) L 08/19/18 06:00 CARDIAC ENZYMES Creatine Kinase 174 IU/L (26-192) 08/18/18 23:00 Troponin I 0.05 ng/ml (0.00-0.05) 08/19/18 05:10 Current Medications Generic Name Dose Route Start Last Admin Trade Name Freq PRN Reason Stop Dose Admin Aspirin 81 mg 08/19/18 10:00 Asa - PO DAILY [facility] Insulin Aspart 1 vial 08/19/18 07:00 08/19/18 07:35 Novolog Vial Sliding Scale - SQ 4 units ACHS [facility] Administration Protocol Metoprolol Succinate 50 mg 08/19/18 10:00 Toprol Xl - PO BID [facility] Warfarin Sodium 7.5 mg 08/19/18 18:00 Coumadin - PO DAILY@1800 [facility] Home Medications Medication Instructions Recorded Gabapentin 300 mg PO DAILY 06/03/15 Warfarin Sodium [Coumadin] 7 mg PO DAILY 06/03/15 Atorvastatin Ca [Lipitor] 40 mg PO HS 08/15/17 Levothyroxine [Synthroid -] 25 mcg PO DAILY 08/15/17 Lisinopril [Prinivil -] 40 mg PO DAILY 08/15/17 Nifedipine [Procardia Xl] 30 mg PO ASDIR 08/15/17 Glyburide/Metformin HCl 2 each PO BID 04/07/18 [Glyburide-Metformin 5-500 mg] Insulin Glargine,Hum.rec.anlog 0 unit SQ ASDIR 04/07/18 [Lantus] Pioglitazone HCl 45 mg PO ASDIR 04/07/18 Ranitidine [Zantac -] 75 mg PO DAILY 04/07/18 ASSESSMENT AND PLAN: Patient is a 62yo female with PMHx of Mechanical Aortic Valve due to Rheumatic fever (On Coumadin), CVA (R sided residual weakness ), DM, HTN, Hypothyroidism, HLD presents for Palpitations # Palpitations due to hypothyroidism with TSH of 10.9 , will give her a dose of Levoxyl 100mcg, will verify with the pharmacy the dose of the medication. # Elevated troponin, trending down, most likely to demand ischemia. cardio , on the case. Trop 0.06 --> 0.05 Started on Toprol XL 50mg BID, asa 81mg #Mechanical Aortic Valve , INR 2.73, continue Coumadin 7.5mg; daily INR # HTN, Controlled Continue Lisinopril, Hold Procardia XL; Start Toprol XL #Hypothyroidism on levoxyl, increased the dose #DM ss with coverage, A1c pending DVT Px: Warfarin
[2018-08-19] MEDS ORDERED: MAGNESIUM SULF 50% (8.12 MEQ/2 ML-1 GM VIAL) IVPB ONE (09:31)
--- NOTE | 2018-08-19 09:36 | EKG ---
Test Reason : Blood Pressure : / mmHG Vent. Rate : 078 BPM Atrial Rate : 078 BPM P-R Int : 140 ms QRS Dur : 072 ms QT Int : 382 ms P-R-T Axes : -24 026 094 degrees QTc Int : 435 ms NORMAL SINUS RHYTHM NONSPECIFIC T WAVE ABNORMALITY WHEN COMPARED WITH ECG OF 19-AUG-2018 02:15, NO SIGNIFICANT CHANGE WAS FOUND Confirmed by WILLIS ECHAVARRIA MD ([id number]) on 08/19/2018 9:36:23 AM Referred By: Confirmed By:WILLIS ECHAVARRIA MD
--- NOTE | 2018-08-19 09:38 | EKG ---
Test Reason : Blood Pressure : / mmHG Vent. Rate : 076 BPM Atrial Rate : 076 BPM P-R Int : 138 ms QRS Dur : 074 ms QT Int : 396 ms P-R-T Axes : -21 029 073 degrees QTc Int : 445 ms SINUS RHYTHM WITH MARKED SINUS ARRHYTHMIA OTHERWISE NORMAL ECG WHEN COMPARED WITH ECG OF 18-AUG-2018 22:42, SINUS RHYTHM HAS REPLACED JUNCTIONAL RHYTHM OR ECTOPIC ATRIAL RHYTHM CLINICAL CORRELATION IS RECOMMENDED Confirmed by ITALIA EDGE, WILLIS ([id number]) on 08/19/2018 9:38:02 AM Referred By: Confirmed By:WILLIS ECHAVARRIA MD
--- NOTE | 2018-08-19 09:39 | EKG ---
Test Reason : Blood Pressure : / mmHG Vent. Rate : 069 BPM Atrial Rate : 069 BPM P-R Int : 132 ms QRS Dur : 072 ms QT Int : 384 ms P-R-T Axes : 245 034 065 degrees QTc Int : 411 ms UNUSUAL P AXIS AND SHORT PA, PROBABLE JUNCTIONAL RHYTHM VS. ECTOPIC ATRIAL RHYTHM WITH PREMATURE SUPRAVENTRICULAR COMPLEXES ABNORMAL ECG NO PREVIOUS ECGS AVAILABLE Confirmed by WILLIS ECHAVARRIA MD ([id number]) on 08/19/2018 9:39:26 AM Referred By: Confirmed By:WILLIS ECHAVARRIA MD
[2018-08-19] MEDS ORDERED: LEVOTHYROXINE NA 100 MCG TABLET (FP) PO ONE (10:00)
[2018-08-19] MEDS ORDERED: ASPIRIN 81 MG CHEWABLE TABLETS PO SCH (10:00)
--- NOTE | 2018-08-19 10:57 | CON.CARD ---
Consult Consult Specialty:: cardio - History of Present Illness Chief Complaint: palpitations History of Present Illness: 62 F here with palpitations. used to see dr winston casarez for cardio ([facility] last visit > 1 yr ago. more recentlys joseph maldonado ([facility]). c/o palpitations in past, had holter with very brief PSVT seen. sx's resolved, then again x 1 and EMS "caught it" on ekg but sx resolved in transit. to ER, sent home. the palpitations resolved until yest--persisted for > 1 hr. then again briefly overnight in ER. TELEMETRY REVIEWED AND DISCUSSED WITH RN AND RN FIELD OPERATIONS COORDINATOR: THEY CONFIRM PT HAS NOT BEEN ON TELE MONITOR, SET UP NOW PER MY REQUEST has had rare, intermittent double vision and mild dizzy feeling chronically, not assctd with palpitations. no presyncope/syncope with this. saw optho for it, ? any other w/u. this sx stable no cp, sob PMH: HTN, HLD, DM, CVA (), mechanical mitral valve (placed 1995) - Alcohol/Substance Use Hx Alcohol Use: No - Smoking History Smoking history: Never smoked Have you smoked in the past 12 months: No Home Medications - Allergies Allergies/Adverse Reactions: Allergies Allergy/AdvReac Type Severity Reaction Status Date / Time No Known Allergies Allergy Verified 07/03/18 21:35 - Home Medications Home Medications: Ambulatory Orders Gabapentin 600 mg PO BID 06/03/15 Warfarin Sodium [Coumadin] 7.5 mg PO DAILY 06/03/15 Atorvastatin Ca [Lipitor] 40 mg PO HS 08/15/17 Levothyroxine [Synthroid -] 75 mcg PO DAILY 08/15/17 Lisinopril [Prinivil -] 40 mg PO DAILY 08/15/17 Nifedipine [Procardia Xl] 30 mg PO ASDIR 08/15/17 Glyburide/Metformin HCl [Glyburide-Metformin 5-500 mg] 2 each PO BID 04/07/18 Insulin Glargine,Hum.rec.anlog [Lantus] 0 unit SQ ASDIR 04/07/18 Ranitidine [Zantac -] 75 mg PO DAILY PRN 04/07/18 Family Disease History - Family Disease History Family History: Denies (no known cmp) Review of Systems - Review of Systems Constitutional: denies: Chills, Fever Eyes: denies: Eye Pain HENT: denies: Nasal Congestion Neck: denies: Stiffness Cardiovascular: denies: Palpitations Respiratory: denies: Orthopnea, PND Gastrointestinal: denies: Diarrhea, Rectal Bleeding Genitourinary: denies: Burning, Hematuria Musculoskeletal: denies: Muscle Pain Integumentary: denies: Rash Neurological: denies: Numbness, Seizure, Syncope Endocrine: denies: Excessive Sweating Hematology/Lymphatic: denies: Excessive Bleeding Vital Signs: Vital Signs Temperature 97.8 F 08/19/18 05:30 Pulse Rate 73 08/19/18 05:30 Respiratory Rate 18 08/19/18 05:30 Blood Pressure 106/62 08/19/18 05:30 O2 Sat by Pulse Oximetry (%) 96 08/19/18 05:30 Constitutional: Yes: Well Nourished, No Distress Eyes: No: Sclera Icterus HENT: No: Nasal Congestion Neck: No: Decreased ROM Respiratory: Yes: CTA Bilaterally. No: Accessory Muscle Use, Rales, Wheezes Gastrointestinal: Yes: Normal Bowel Sounds. No: Distention, Hepatomegaly, Palpable Mass, Tenderness Cardiovascular: Yes: Regular Rate and Rhythm ([facility] S2 click) JVD: No Carotid Bruit: No PMI: Non-Displaced Heart Sounds: Yes: S1, S2. No: Gallop Murmur: No: Systolic Murmur, Diastolic Murmur Musculoskeletal: Yes: Other (No kyphosis) Extremities: No: Cool, Cyanosis Edema: No Peripheral Pulses: 2+ Left Carotid, 2+ Right Carotid, 2+ Left Doralis Pedis, 2+ Right Dorsalis Pedis Integumentary: No: Jaundice Neurological: Yes: Alert, Oriented (x3) Psychiatric: No: Agitated - Other Data Labs, Other Data: CBC, BMP 08/19/18 05:00 08/19/18 06:00 INR, PTT INR 2.64 (0.83-1.09) H 08/19/18 05:00 Troponin, BNP 08/18/18 08/19/18 23:00 05:10 Troponin I 0.06 H 0.05 Troponin, BNP 08/18/18 08/19/18 23:00 05:10 Troponin I 0.06 H 0.05 Laboratory Tests 08/18/18 08/19/18 08/19/18 23:00 05:00 05:00 WBC 6.6 Hgb 13.4 Plt Count 219 INR 2.64 H Sodium Potassium Carbon Dioxide BUN Creatinine Hemoglobin A1c % AST ALT Troponin I 0.06 H Albumin Triglycerides Cholesterol Total LDL Cholesterol HDL Cholesterol TSH 08/19/18 08/19/18 08/19/18 05:00 05:10 06:00 WBC Hgb Plt Count INR Sodium 137 Potassium 4.0 Carbon Dioxide 27 BUN 19 H Creatinine 0.6 Hemoglobin A1c % 9.2 H AST 26 ALT 32 Troponin I 0.05 Albumin 3.2 L Triglycerides 104 Cholesterol 136 Total LDL Cholesterol 70 HDL Cholesterol 55 TSH 10.90 H Assessment/Plan ECG 08/18: NSR, nonsp ST-Ts, no old #2, #3: no change CXR: clear lungs/pleura palpitations: -h/o same in past, with brief PSVT on holter with her cardio (hermelindo), ? if this is etiology of sx's -again sx's yesterday--resolved prior to ER, no arrhythmia seen here. then overnight but not on monitor in ER. -given pt has had brief, self-limited sx's stable for couple of years, and prior w/u negative, it is very unlikely she will benefit from continued observation in hospital. -she is on no AVN blockers per home meds list. rec start metoprolol and pt can be discharged, to f/u with her prior cardio or with us (she states the latter is more convenient). will arrange event monitor as outpatient. (she is on coumadin anyway, so no risk of cva even if this represents pafib/ flutter) elev trop: -trop 0.06-->0.05. indeterminate range, flat trend = not c/w ACS -no ischemic ecg findings -no sx's suspicious for ischemia -[facility] prior CVA: -pt on warfarin. target INR should be 2.5-3.5--she is in range -same plan -exam normal with no MR murmur. has been stable on outpt monitoring with [facility] cardio DM: -A1c 9 -per hospitalist hypothyroid: -hi TSH -per hospitalist
--- NOTE | 2018-08-19 14:33 | DS ---
Physical Exam: SUBJECTIVE: Patient seen and examined at bedside. No acute events overnight. OBJECTIVE: Vital Signs Period Temp Pulse Resp BP Sys/Loomis Pulse Ox Last 24 Hr 97.8 F-98.2 F 73-79 18-19 106-128/62-68 95-99 PHYSICAL EXAM GENERAL: A&Ox3, NAD HEAD: NCAT EYES: PERRL, EOMI EARS, NOSE, THROAT: Oropharynx clear without exudates. Moist mucous membranes. NECK: No JVD LUNGS: CTA b/l, No wheezes, no crackles HEART: Regular rate and rhythm, normal S1 and S2 without murmur ABDOMEN: Obese, Soft, nontender, not distended, + bowel sounds, no guarding MUSCULOSKELETAL: No CVA tenderness. EXTREMITIES: 2+ pulses, No edema. NEUROLOGICAL: Cranial nerves II-XII intact. Normal speech. Muscle strength 1/5 RUE, 4/5 LUE, 2/5 RLE, 3/5 LLE. SKIN: Warm, dry LABS Laboratory Results - last 24 hr 08/18/18 08/18/18 08/18/18 23:00 23:00 23:00 WBC 7.8 RBC 4.90 Hgb 13.8 Hct 39.9 MCV 81.4 MCH 28.1 MCHC 34.6 RDW 15.1 Plt Count 237 MPV 8.9 Absolute Neuts (auto) 4.9 Neutrophils % 62.7 Lymphocytes % 27.4 D Monocytes % 7.3 Eosinophils % 1.8 Basophils % 0.8 Nucleated RBC % 0 PT with INR 32.50 H INR 2.73 H Sodium 137 Potassium 4.4 Chloride 104 Carbon Dioxide 27 Anion Gap 7 L BUN 22 H Creatinine 0.9 Creat Clearance w eGFR > 60 Random Glucose 345 H* Hemoglobin A1c % Calcium 8.2 L Phosphorus Magnesium Total Bilirubin 0.3 AST 27 ALT 33 Alkaline Phosphatase 132 H Creatine Kinase 174 Creatine Kinase Index 0.9 CK-MB (CK-2) 1.6 Troponin I 0.06 H Total Protein 6.8 Albumin 3.2 L Triglycerides Cholesterol Total LDL Cholesterol HDL Cholesterol TSH 08/19/18 08/19/18 08/19/18 05:00 05:00 05:00 WBC 6.6 RBC 4.73 Hgb 13.4 Hct 38.3 MCV 81.1 MCH 28.3 MCHC 34.9 RDW 14.9 Plt Count 219 MPV 8.9 Absolute Neuts (auto) 3.6 Neutrophils % 54.9 Lymphocytes % 33.1 D Monocytes % 8.1 Eosinophils % 3.2 Basophils % 0.7 Nucleated RBC % 0 PT with INR 31.50 H INR 2.64 H Sodium Potassium Chloride Carbon Dioxide Anion Gap BUN Creatinine Creat Clearance w eGFR Random Glucose Hemoglobin A1c % 9.2 H Calcium Phosphorus Magnesium Total Bilirubin AST ALT Alkaline Phosphatase Creatine Kinase Creatine Kinase Index CK-MB (CK-2) Troponin I Total Protein Albumin Triglycerides Cholesterol Total LDL Cholesterol HDL Cholesterol TSH 08/19/18 08/19/18 05:10 06:00 WBC RBC Hgb Hct MCV MCH MCHC RDW Plt Count MPV Absolute Neuts (auto) Neutrophils % Lymphocytes % Monocytes % Eosinophils % Basophils % Nucleated RBC % PT with INR INR Sodium 137 Potassium 4.0 Chloride 104 Carbon Dioxide 27 Anion Gap 6 L BUN 19 H Creatinine 0.6 Creat Clearance w eGFR > 60 Random Glucose 234 H Hemoglobin A1c % Calcium 8.2 L Phosphorus 3.3 Magnesium 1.4 L Total Bilirubin 0.4 AST 26 ALT 32 Alkaline Phosphatase 125 H Creatine Kinase Creatine Kinase Index CK-MB (CK-2) Troponin I 0.05 Total Protein 6.5 Albumin 3.2 L Triglycerides 104 Cholesterol 136 Total LDL Cholesterol 70 HDL Cholesterol 55 TSH 10.90 H HOSPITAL COURSE: Date of Admission:08/19/18 IMAGING: * CXR: No acute chest pathology * Echo: normal LV systolic fxn, EF 60-65%, diastolic dysfxn, Grade II, consistent w/ elevated LA pressure. No regional wall motion abnormalities. 62F PMHx of mechanical mitral Valve (On Coumadin), CVA (R sided residual weakness), DM, HTN, Hypothyroidism, HLD presented to the hospital with palpitations. EKG was done that showed sinus arrhythmia, VR 76, QTc 445. Trops were unremarkable. CXR showed no acute chest pathology. Echo done in the hospital revealed normal LV systolic fxn, EF 60-65%, diastolic dysfxn, Grade II , consistent w/ elevated LA pressure. No regional wall motion abnormalities. Cardio was consulted for further evaluation. Upon cardio assessment, pt was not found to have an acute cardiac condition necessitating continued hospital stay.Throughout hospital stay, pt's symptoms improved. Pt was subsequently discharged with recommendation to start taking Metoprolol and Levoxyl. She was also advised to follow up with cardiology for further evaluation with event monitor as outpatient, as well as PCP and endo. Date of Discharge: 08/19/18 Minutes to complete discharge: 40 Discharge Summary Reason For Visit: PALPITATIONS/ELEVATED TROPONIN LEVEL Condition: Improved - Instructions Diet, Activity, Other Instructions: You were seen in the hospital for complaints of heart palpitations. In the hospital, an echocardiogram was done that did not show any abnormality. You were also assessed by a director employee safety and health and found to have no acute cardiac condition at this time. Your symptoms improved throughout your hospital stay. You are being discharged home. MEDICAL RECOMMENDATIONS We have made the following changes to your medications: Please STOP taking Procardia. Instead, please take Toprol XL 50 mg by mouth once a day. Please STOP taking Synthroid 75 mcg. Instead, please take Synthroid 125 mcg by mouth daily in the morning. *Please do not take Synthroid and Coumadin at the same time. We advise you to take Synthroid in the morning and Coumadin at night. You may continue your Coumadin dose of 7.5 mg once a day at night. Please follow up with your primary care doctor to check your INR levels. Please continue taking all your home medications as directed. CONSULT RECOMMENDATIONS Please follow up with your primary care physician within 1 week. Please follow up with your director employee safety and health, Dr. Prado, within 1 week. You will need a heart (event) monitor for further evaluation of your symptoms. You can contact Dr. Prado's office to make an appointment. The phone number is [phone]. Please follow up with your product technology scientist within 1 week. If you do not have an product technology scientist, you may make an appointment with Dr. Segura. The phone number is . If you experience worsening chest pain, shortness of breath, difficulty breathing, persistent headache, fever/chills, arm numbness, difficulty walking, slurred speech, or mental status changes, please proceed to your nearest emergency room immediately. Referrals: Ashok Prado MD [Staff Physician] - 1 Week Rosalinda Segura MD [Staff Physician] - 1 Week Disposition: HOME - Home Medications Comprehensive Discharge Medication List: Ambulatory Orders Gabapentin 600 mg PO BID 06/03/15 Warfarin Sodium [Coumadin] 7.5 mg PO DAILY 06/03/15 Atorvastatin Ca [Lipitor] 40 mg PO HS 08/15/17 Lisinopril [Prinivil -] 40 mg PO DAILY 08/15/17 Glyburide/Metformin HCl [Glyburide-Metformin 5-500 mg] 2 each PO BID 04/07/18 Insulin Glargine,Hum.rec.anlog [Lantus] 12 unit SQ ASDIR 04/07/18 Ranitidine [Zantac -] 75 mg PO DAILY PRN 04/07/18 Levothyroxine Sodium [Levoxyl] 125 mcg PO DAILY #30 tablet 08/19/18 Metoprolol Succinate [Toprol XL -] 50 mg PO DAILY #30 tab.sr.24h 08/19/18 This patient is new to me today: Yes Date on this admission: 08/19/18 Emergency Visit: Yes ED Registration Date: 08/19/18 Care time: The patient presented to the Emergency Department on the above date and was hospitalized for further evaluation of their emergent condition. Critical Care patient: No - Discharge Referral Referred to [facility] Med [facility].C.: No
[2018-08-19 15:03] VITALS: BP 110/72; PULSE 80; TEMP 97.9
[2018-08-19] MEDS ORDERED: WARFARIN NA 7.5 MG TABLET (FP) PO SCH (18:00)
== END 2018-08-19 15:00 | disposition home or self-care (01) ==
LOC: JER 22:20 → JERBED 08-19 01:07
PROVIDERS: ADMIT Internal Medicine; ATTEND Internal Medicine
PROC: 3E033GC Introduction of Other Therapeutic Substance into Peripheral Vein, Percutaneous Approach (ICD-10-PCS; principal; 2018-08-19)
PROC: 3E013VG Introduction of Insulin into Subcutaneous Tissue, Percutaneous Approach (ICD-10-PCS; 2018-08-19)
DX: R00.2 Palpitations (principal); R74.8 Abnormal levels of other serum enzymes; E03.9 Hypothyroidism, unspecified; I10 Essential (primary) hypertension; E78.5 Hyperlipidemia, unspecified; E11.9 Type 2 diabetes mellitus without complications; Z79.4 Long term (current) use of insulin; I69.851 Hemiplegia and hemiparesis following other cerebrovascular disease affecting right dominant side; Z95.4 Presence of other heart-valve replacement; Z79.01 Long term (current) use of anticoagulants
CPT/HCPCS: 36415; 71046-TC-FY; 80053; 80061; 82550; 82553; 83036; 83721; 83735; 84100; 84443; 84484; 85025; 85610; 93005; 93010; 93306-TC; 96372; 96374; 99284-25; G0378

== ENCOUNTER 2018-11-04 15:17 | Inpatient (IN) | payer OTHER ==
--- NOTE | 2018-11-04 16:20 | PDOC ---
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 Patient also reported she has been having intermittent chest tightness since yesterday. Patient reported hitting head and week ago on a bench after slip and fall and has been having nausea with intermittent blurry vision and headache since then. Patient denies vomiting. Patient also reported history of stroke over 10 years ago with weakness on the right side. Denies chest pain now, shortness of breath, numbness or tingling sensation, sweats or vomiting. Timing/Duration: 1 week Past History - Past Medical History Allergies/Adverse Reactions: Allergies Allergy/AdvReac Type Severity Reaction Status Date / Time No Known Allergies Allergy Verified 11/04/18 15:31 Home Medications: Ambulatory Orders Gabapentin 600 mg PO BID 06/03/15 Warfarin Sodium [Coumadin] 7.5 mg PO DAILY 06/03/15 Atorvastatin Ca [Lipitor] 40 mg PO HS 08/15/17 Lisinopril [Prinivil -] 40 mg PO DAILY 08/15/17 Glyburide/Metformin HCl [Glyburide-Metformin 5-500 mg] 2 each PO BID 04/07/18 Insulin Glargine,Hum.rec.anlog [Lantus] 12 unit SQ ASDIR 04/07/18 Ranitidine [Zantac -] 75 mg PO DAILY PRN 04/07/18 Levothyroxine Sodium [Levoxyl] 125 mcg PO DAILY #30 tablet 08/19/18 Metoprolol Succinate [Toprol XL -] 50 mg PO DAILY #30 tab.sr.24h 08/19/18 Cardiac Disorders: Yes (MECHANICAL heart valve) CVA: Yes (X2 RIGHT RESUDIAL WEAKNESS) COPD: No Diabetes: Yes HTN: Yes Hypercholesterolemia: Yes - Surgical History Cardiac Surgery: Yes (VALVE REPLACEMENT) - Immunization History Immunization Up to Date: Yes - Suicide/Smoking/Psychosocial Hx Smoking History: Never smoked Have you smoked in the past 12 months: No Hx Alcohol Use: No Drug/Substance Use Hx: No Substance Use Type: None Review of Systems - Review of Systems Able to Perform ROS?: Yes Is the patient limited [place] proficient: No Constitutional: No: Chills, Fever, Weakness HEENTM: No: Symptoms Reported, See HPI, Eye Pain, Blurred Vision, Tearing, Recent change in vision, Double Vision, Cataracts, Ear Pain, Ocular Prothesis, Ear Discharge, Nose Pain, Nose Congestion, Tinnitus, Nose Bleeding, Hearing Loss , Throat Pain, Throat Swelling, Mouth Pain, Dental Problems, Difficulty Swallowing, Mouth Swelling, Other Respiratory: No: Symptoms reported, See HPI, Cough, Orthopnea, Shortness of Breath, SOB with Exertion, SOB at Rest, Stridor, Wheezing, Productive cough, Hemoptysis, Other Cardiac (ROS): Yes: Symptoms Reported, See HPI, Chest Tightness. No: Chest Pain , Edema, Irregular Heart Rate, Lightheadedness, Palpitations, Syncope, Other ABD/GI: Yes: See HPI, Nausea. No: Constipated, Diarrhea, Vomiting, Abdominal cramping Integumentary: No: Bruising Neurological: Yes: See HPI, Headache. No: Numbness, Paresthesia, Tingling, Dizziness All Other Systems: Reviewed and Negative *Physical Exam - Vital Signs Last Vital Signs Temp Pulse Resp BP Pulse Ox 98.0 F 75 14 126/71 96 11/04/18 15:25 11/04/18 15:25 11/04/18 15:25 11/04/18 15:25 11/04/18 15:25 - Physical Exam Comments: 11/04/18 16:32 GENERAL: Well developed, well nourished. Awake and alert. No acute distress. HEENT: Normocephalic, atraumatic. PERRLA, EOMI. No conjunctival pallor. Sclera are non- icteric. Moist mucous membranes. Oropharynx is clear. NECK: Supple. Full ROM. No JVD. Carotid pulses 2+ and symmetric, without bruits. No thyromegaly. No lymphadenopathy. CARDIOVASCULAR: Regular rate and rhythm. No murmurs, rubs, or gallops. Distal pulses are 2+ and symmetric. PULMONARY: No evidence of respiratory distress. Lungs clear to auscultation bilaterally. No wheezing, rales or rhonchi. ABDOMINAL: Soft. Non-tender. Non-distended. No rebound or guarding. No organomegaly. Normoactive bowel sounds. MUSCULOSKELETAL Normal range of motion at all joints. No bony deformities or tenderness. EXTREMITIES: No cyanosis. No clubbing. No edema. No calf tenderness. SKIN: Warm and dry. Normal capillary refill. No rashes. No jaundice. NEUROLOGICAL: Alert, awake, appropriate. Cranial nerves 2-12 intact. No deficits to light touch and temperature in face, upper extremities and lower extremities. No motor deficits in the in face, upper extremities and lower extremities. Normal speech. Toes are down-going bilaterally. Gait is normal without ataxia. PSYCHIATRIC: Cooperative. Good eye contact. Appropriate mood and affect. General Appearance: Yes: Nourished, Appropriately Dressed. No: Apparent Distress ED Treatment Course - LABORATORY CBC & Chemistry Diagram: 11/04/18 16:20 11/04/18 16:20 Medical Decision Making - Medical Decision Making 11/04/18 16:34 Patient with history of multiple comorbidities presenting with complaint of one- week history of headache with intermittent nausea and blurry vision status post hitting head after slip and fall over a week ago. Patient with history of which will viral replacement 20 years ago on Coumadin and was send from Coumadin clinic due to INR of 1.2 area patient reported mild chest tightness yesterday but denies chest pain, shortness of breath, dizziness, numbness or tingling sensation. Patient in no acute distress on exam with normal cardio exam. Normal neuro exam. CBC, chemistry lab, cardial profile, PT and PTT labs ordered. EKG ordered to evaluate for cardiogenic pathology. CT of the head without contrast ordered to rule out intracranial bleeding from head trauma. Patient be transferred to the main ED for follow-up management of subtherapeutic INR on Coumadin. *DC/Admit/Observation/Transfer Diagnosis at time of Disposition: Nausea, Supratherapeutic INR Headache, post-traumatic, acute Qualifiers: Intractability: not intractable Qualified Code(s): G44.319 - Acute post- traumatic headache, not intractable - Discharge Dispostion Condition at time of disposition: Stable - Referrals - Patient Instructions - Post Discharge Activity
[2018-11-04 16:39] LABS: BASO % 0.7 % (0-2.0); HEMATOCRIT 46.1 % (32.4-45.2); HEMOGLOBIN 15.7 GM/dL (10.7-15.3); LYMPH % 24.1 % (8-40); MCH 28.1 pg (25.7-33.7); MCHC 34.1 g/dl (32.0-36.0); MEAN CELL VOLUME 82.6 fl (80-96); MEAN PLT VOLUME 9.1 fl (7.5-11.1); MONO % 6.4 % (3.8-10.2); NEUT % 66.8 % (42.8-82.8); PLATELET COUNT 229 K/MM3 (134-434); RBC 5.58 M/mm3 (3.60-5.2); RDW 14.6 % (11.6-15.6); WHITE BLOOD COUNT 7.9 K/mm3 (4.0-10.0)
[2018-11-04 16:45] LABS: INR 1.06 (0.83-1.09); PROTHROMBIN TIME (PATIENT) 12.5 SEC (9.7-13.0)
[2018-11-04 17:10] LABS: ALBUMIN 3.8 g/dl (3.4-5.0); ALK PHOS 132 U/L (45-117); ANION GAP 10 MMOL/L (8-16); BILIRUBIN,TOTAL 0.4 mg/dL (0.2-1); BLOOD UREA NITROGEN 12 mg/dL (7-18); CALCIUM 8.8 mg/dL (8.5-10.1); CHLORIDE 101 mmol/L (98-107); CO2 25 mmol/L (21-32); CREATININE 0.9 mg/dL (0.55-1.3); GLUCOSE,RANDOM 281 mg/dL (74-106); POTASSIUM 4.2 mmol/L (3.5-5.1); SGOT/AST 24 U/L (15-37); SGPT/ALT 35 U/L (13-61); SODIUM 136 mmol/L (136-145); TOT PROT 7.6 g/dl (6.4-8.2)
--- NOTE | 2018-11-04 17:52 | PDOC ---
Attending Attestation - HPI HPI: The patient is a 63 year old female, with a significant past medical history of CVA ('),HTN, HLD, DM, mechanical mitral valve (placed 1995 for damage to valve after rheumatic fever as a child, on coumadin), who presents to the emergency department for an INR of 1.2. While in the ED, patient notes a headache. She denies recent nausea, vomit, diarrhea or constipation. She denies recent dysuria, frequency, urgency or hematuria. She denies recent chest pain or shortness of breath. Allergies: NKDA - Physicial Exam PE: 11/04/18 18:19 GENERAL: Well-appearing, well-nourished. No apparent distress. HEENT: Normocephalic, atraumatic. PERRL, EOM intact. CARDIOVASCULAR: +Prominent mechanical valve "click." PULMONARY: Clear to auscultation bilaterally. ABDOMEN: Soft, non-distended, non-tender. EXTREMITIES: Normal ROM in all four extremities. No gross deformities. SKIN: Warm, dry. No rash NEUROLOGICAL: No focal neurological deficits. <Ronnie Woodard - Last Filed: 11/04/18 18:17> - Resident Resident Name: Van Hawkins - ED Attending Attestation I have performed the following: I have examined & evaluated the patient, The case was reviewed & discussed with the resident, I agree w/resident's findings & plan, Exceptions are as noted - HPI HPI: 11/04/18 17:41 This 63-year-old female was referred by her new cub reporter, Dr. Mccray for admission for subtherapeutic coagulation. She has a history of strokes in the past and is on Coumadin, but her labs showed that she is subtherapeutic with an INR of only 1. She has complained OF occipital headache that started about 3 days ago with bilateral temporal throbbing that radiated to her occipital area. She also has had intermittent substernal chest pain for the past 3 days She also has c/o of several days of blurry vision Dr Prado is covering for Dr Mccray and recommended admitting this pt and starting heparin 11/04/18 18:05 - Medical Decision Making 11/04/18 18 She did have an echo done 08/19/2018 that showed normal LV function and size. Ejection fraction was 60-65% and there was diastolic dysfunction grade 2 -she's had blurry vision for a few days and Her visual acuity test reveals 20/ 30 vision OS and 20/25 vision OD 11/04/18 19:29 pt is admitted and heparin will be started negative troponin INR=1.06 <Shey Hewitt - Last Filed: 11/04/18 19:31> Attestations - Attestations 11/04/18 18:20 Documentation prepared by Ronnie Woodard, acting as medical insurance verifier for Shey Hewitt MD. <Ronnie Woodard - Last Filed: 11/04/18 18:17>
--- NOTE | 2018-11-04 18:20 | PDOC ---
History of Present Illness - General Chief Complaint: Revisit, Lab Variance Stated Complaint: SENT BY PCP Time Seen by Provider: 11/04/18 16:05 History Source: Patient Exam Limitations: No Limitations - History of Present Illness Initial Comments: 11/04/18 18:18 HPI: 63 y/o female presenting to [facility] ER from a coumadin clinic in the [place] for subtherapeutic INR. Pt takes Coumadin 9mg daily for mechanical mitral valve and CVA x2. Endorses good compliance with medication therapy and denies change in diet. Additionally endorses substernal, non reproducible, non radiating chest pain yesterday. Described as tightness. Resolved yesterday without intervention. Not present at time of interview. Also endorses striking her head last week on a bench after slipping. Denies LOC. Was able to return to baseline activity immediately. Now endorsing posterior occipital headache, bilaterally blurry vision, and dizziness. Walks with a cane normally. Last Echo Aug 2018: LV 60-65% with Grade II diastolic dysfunction. PCP: Establishing care with new PCP. Unable to recall name. Sample Tailor: Recently established care with Dr. Mccray. Social Hx: - EtOH: Denies - Tobacco: Denies - Street drugs: Denies Medical Hx: - CVA x2, 23 and 3 years ago, residual right upper extremity weakness - Neuropathic pain - S/p mechanical mitral valve replacement 2/2 rheumatic fever, on coumadin - Diabetes, managed with Glyburide/Metformin and Glargine (12 units nightly) - HTN - HLD Past History - Past Medical History Allergies/Adverse Reactions: Allergies Allergy/AdvReac Type Severity Reaction Status Date / Time No Known Allergies Allergy Verified 11/04/18 15:31 Home Medications: Ambulatory Orders Gabapentin 600 mg PO BID 06/03/15 Warfarin Sodium [Coumadin] 7.5 mg PO DAILY 06/03/15 Atorvastatin Ca [Lipitor] 40 mg PO HS 08/15/17 Lisinopril [Prinivil -] 40 mg PO DAILY 08/15/17 Glyburide/Metformin HCl [Glyburide-Metformin 5-500 mg] 2 each PO BID 04/07/18 Insulin Glargine,Hum.rec.anlog [Lantus] 12 unit SQ ASDIR 04/07/18 Ranitidine [Zantac -] 75 mg PO DAILY PRN 04/07/18 Levothyroxine Sodium [Levoxyl] 125 mcg PO DAILY #30 tablet 08/19/18 Metoprolol Succinate [Toprol XL -] 50 mg PO DAILY #30 tab.sr.24h 08/19/18 Cardiac Disorders: Yes (MECHANICAL heart valve (Mitral)) CVA: Yes (X2 w/ Residual R Upper Extremity Weakness) COPD: No Diabetes: Yes (Insulin dependent ) HTN: Yes Hypercholesterolemia: Yes - Surgical History Cardiac Surgery: Yes (Mitral Valve Replacement) - Immunization History Immunization Up to Date: Yes - Suicide/Smoking/Psychosocial Hx Smoking History: Never smoked Have you smoked in the past 12 months: No Hx Alcohol Use: No Drug/Substance Use Hx: No Substance Use Type: None Review of Systems - Review of Systems Able to Perform ROS?: Yes Comments:: In addition to that documented in the HPI above, the additional ROS was obtained : Constitutional: Denies fevers or chills Head: Per HPI ENMT: Denies sore throat or URI symptoms CV: Per HPI Resp: Denies SOB, coughing, or sneezing GI: Endorses nausea without vomiting or diarrhea : Denies painful urination MSK: Denies recent trauma Skin: Denies new rashes Neuro: Denies new numbness or tingling or weakness Endocrine: Denies polyuria Heme: Denies bleeding or bruising Is the patient limited Khmer proficient: No *Physical Exam - Vital Signs Last Vital Signs Temp Pulse Resp BP Pulse Ox 98.0 F 75 14 126/71 96 11/04/18 15:25 11/04/18 15:25 11/04/18 15:25 11/04/18 15:25 11/04/18 15:25 - Physical Exam Comments: Constitutional: Well-developed, well-nourished adult female in no acute distress or obvious discomfort. Found sitting upright on edge of hospital bed. Alert and oriented x4. Answered all questions appropriately and completely. Speech was non-labored, non-pressured, and clear. Head: Normocephalic. No obvious external signs of trauma. Eyes: Pupils 3mm and PERRL bilaterally. EOMI and nonpainful. Sclerae white. Conjunctiva moist and not injected. Vision 20/32 in left eye and 20/25 in right eye. Ears: Hearing grossly intact. Nose: No nasal discharge. Neck: Supple, trachea is midline. Cardiovascular / Chest: Regular rate and regular rhythm. Mechanical valve tick. Peripheral pulses: radial pulses full. No anterior chest wall tenderness. No pretibial edema. Respiratory: Breathing unlabored. Equal chest rise and fall. Clear to auscultation bilaterally. No stridor, no wheezing, no rhonchi. Gastrointestinal: abdomen is soft, non-tender, non-distended. Neuro: Alert and oriented. Moving all four extremities spontaneously. No focal deficits. Cranial nerves intact. Sensation to all four extremities intact. R guide tour strength 3/5 and right upper extremity proximal and distal strength 3/5. Left upper extremity 5/5. Bilateral lower extremity 5/5. Plantar flexion and dorsiflexion 5/5. Skin: Warm, dry, and intact. Psych: Affect: appropriate. Mood: normal. ED Treatment Course - LABORATORY CBC & Chemistry Diagram: 11/04/18 16:20 11/04/18 16:20 - ADDITIONAL ORDERS Additional order review: 11/04/18 11/04/18 16:20 16:15 PT with INR 12.50 INR 1.06 PTT (Actin FS) 42.0 H Sodium 136 Potassium 4.2 Chloride 101 Carbon Dioxide 25 Anion Gap 10 BUN 12 Creatinine 0.9 Creat Clearance w eGFR 63.65 Random Glucose 281 H Calcium 8.8 Total Bilirubin 0.4 AST 24 ALT 35 Alkaline Phosphatase 132 H Creatine Kinase 134 Troponin I < 0.02 Total Protein 7.6 Albumin 3.8 11/04/18 16:20 RBC 5.58 H MCV 82.6 MCHC 34.1 RDW 14.6 MPV 9.1 Neutrophils % 66.8 D Lymphocytes % 24.1 D Monocytes % 6.4 Eosinophils % 2.0 Basophils % 0.7 - RADIOLOGY Radiology Studies Ordered: CT Head without contrast. Category Date Time Status CHEST PA & LAT [RAD] Stat Radiology 11/04/18 17:47 Taken Medical Decision Making - Medical Decision Making *Reviewed vital signs, nursing notes, and prior visit documentation (if available). 63 y/o female presenting for subtherapeutic INR, headache w/ bilateral blurry vision s/p fall 1 week ago, and resolved substernal non reproducible or radiating chest pain. Initial workup initiated by fast track [facility]. Head CT unremarkable for acute intracranial process. Old infarct noted. INR again found to be subtherapeutic in the department. EKG unremarkable for acute ischemic changes. First troponin not elevated. Will not obtain second because chest pain was >24 hours ago. 17:[address] Prado 17:[address] Prado. Verbally appraised of the pts HPI, ED course, and current plan of management. Recommends admitting the pt on observational status and starting Heparin. Also recommended given 14mg Coumadin. 18:[address] Bob. Verbally appraised of the pts HPI, ED course, and current plan of management. Will admit pt to med/ surg on observation status. Ordered Heparin protocol with NS and PO Coumadin. *DC/Admit/Observation/Transfer Diagnosis at time of Disposition: Nausea, Supratherapeutic INR Headache, post-traumatic, acute Qualifiers: Intractability: not intractable Qualified Code(s): G44.319 - Acute post- traumatic headache, not intractable - Discharge Dispostion Condition at time of disposition: Stable Decision to Admit order: Yes - Referrals - Patient Instructions - Post Discharge Activity
[2018-11-04] MEDS ORDERED: HEPARIN NA (PORCINE) 5,000 UNITS/ML 1ML VIAL IVPUSH PRN ×2 (18:27)
[2018-11-04] MEDS ORDERED: WARFARIN NA 10 MG TABLET (FP) PO ONE (18:28)
[2018-11-04] MEDS ORDERED: HEPARIN INFUSION - 25,000 UNITS/500 ML INFUS.BAG IVPB ONE (18:37)
[2018-11-04] MEDS: HEPARIN - 25,000 UNIT in SODIUM CHLORIDE 495 ML IV SCH (18:44)
--- NOTE | 2018-11-04 20:08 | HP ---
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 While in the ED, patient notes a headache. She denies recent nausea, vomit, diarrhea or constipation. She denies recent dysuria, frequency, urgency or hematuria. She denies recent chest pain or shortness of breath. - Past Medical History ACCOUNT SUPPORT REP: Yes: CVA Cardiovascular: Yes: HTN, Hyperlipdemia Endocrine: Yes: Diabetes Mellitus - Smoking History Smoking history: Never smoked Have you smoked in the past 12 months: No - Alcohol/Substance Use Hx Alcohol Use: No Home Medications - Allergies Allergies/Adverse Reactions: Allergies Allergy/AdvReac Type Severity Reaction Status Date / Time No Known Allergies Allergy Verified 11/04/18 15:31 - Home Medications Home Medications: Ambulatory Orders Gabapentin 600 mg PO BID 06/03/15 Atorvastatin Ca [Lipitor] 40 mg PO HS 08/15/17 Lisinopril [Prinivil -] 40 mg PO DAILY 08/15/17 Glyburide/Metformin HCl [Glyburide-Metformin 5-500 mg] 2 each PO BID 04/07/18 Insulin Glargine,Hum.rec.anlog [Lantus] 12 unit SQ ASDIR 04/07/18 Ranitidine [Zantac -] 75 mg PO DAILY PRN 04/07/18 Levothyroxine Sodium [Levoxyl] 125 mcg PO DAILY #30 tablet 08/19/18 Metoprolol Succinate [Toprol XL -] 50 mg PO DAILY #30 tab.sr.24h 08/19/18 Warfarin Sodium [Coumadin] 7.5 mg PO DAILY #30 tablet 11/06/18 Physical Examination Vital Signs: Vital Signs Temperature 98.0 F 11/04/18 15:25 Pulse Rate 75 11/04/18 15:25 Respiratory Rate 14 11/04/18 15:25 Blood Pressure 126/71 11/04/18 15:25 O2 Sat by Pulse Oximetry (%) 96 11/04/18 15:25 Constitutional: Yes: No Distress HENT: Yes: Atraumatic Neck: Yes: Supple Cardiovascular: Yes: Regular Rate and Rhythm Respiratory: Yes: CTA Bilaterally Gastrointestinal: Yes: Normal Bowel Sounds Edema: No Neurological: Yes: Alert, Oriented Labs: CBC, BMP 11/04/18 16:20 11/04/18 16:20 Imaging - Results Chest X-ray: Report Reviewed Problem List - Problems (1) HTN (hypertension) Assessment/Plan: on meds stable Code(s): I10 - ESSENTIAL (PRIMARY) HYPERTENSION (2) Diabetes Assessment/Plan: on meds stable Code(s): E11.9 - TYPE 2 DIABETES MELLITUS WITHOUT COMPLICATIONS (3) S/P MVR (mitral valve replacement) Assessment/Plan: on coumadin/heparin inr subtherapeutic Code(s): Z95.2 - PRESENCE OF PROSTHETIC HEART VALVE Assessment/Plan Laboratory Tests 11/04/18 11/04/18 11/04/18 16:15 16:20 16:20 WBC 7.9 RBC 5.58 H Hgb 15.7 H Hct 46.1 H D MCV 82.6 MCH 28.1 MCHC 34.1 RDW 14.6 Plt Count 229 MPV 9.1 Absolute Neuts (auto) 5.3 Neutrophils % 66.8 D Lymphocytes % 24.1 D Monocytes % 6.4 Eosinophils % 2.0 Basophils % 0.7 Nucleated RBC % 0 PT with INR 12.50 INR 1.06 PTT (Actin FS) 42.0 H Sodium 136 Potassium 4.2 Chloride 101 Carbon Dioxide 25 Anion Gap 10 BUN 12 Creatinine 0.9 Creat Clearance w eGFR 63.65 Random Glucose 281 H Calcium 8.8 Total Bilirubin 0.4 AST 24 ALT 35 Alkaline Phosphatase 132 H Creatine Kinase 134 Troponin I < 0.02 Total Protein 7.6 Albumin 3.8 Active Medications Generic Name Dose Route Start Last Admin Trade Name Freq PRN Reason Stop Dose Admin Heparin Sodium (Porcine) 1,000 unit 11/04/18 18:27 Heparin - IVPUSH PRN PRN Heparin Heparin Sodium (Porcine) 5,000 unit 11/04/18 18:27 Heparin - IVPUSH PRN PRN Heparin Heparin Sodium (Porcine) 25, 500 mls @ 20 mls/hr 11/04/18 18:30 11/04/18 18: 44 000 unit/ Sodium Chloride IV 1,000 unit/hr TITR STEPHANIE 20 mls/hr Administration Protocol 1,000 UNIT/HR Active Medications Generic Name Dose Route Start Last Admin Trade Name Priceq PRN Reason Stop Dose Admin Acetaminophen 650 mg 11/04/18 22:21 Tylenol - PO Q6H PRN PAIN LEVEL 1-5 Atorvastatin Calcium 40 mg 11/04/18 22:00 11/05/18 22:35 Lipitor - PO 40 mg HS STEPHANIE Administration Gabapentin 600 mg 11/04/18 22:00 11/06/18 10:26 Neurontin - PO 600 mg BID STEPHANIE Administration Glyburide 5 mg 11/04/18 20:30 11/06/18 06:31 Diabeta - PO 5 mg BIDAC STEPHANIE Administration Heparin Sodium (Porcine) 1,000 unit 11/04/18 18:27 Heparin - IVPUSH PRN PRN Heparin Heparin Sodium (Porcine) 5,000 unit 11/04/18 18:27 Heparin - IVPUSH PRN PRN Heparin Heparin Sodium (Porcine) 25, 500 mls @ 20 mls/hr 11/04/18 18:30 11/06/18 11: 51 000 unit/ Sodium Chloride IV 850 unit/hr TITR STEPHANIE 17 mls/hr Titration Protocol 1,000 UNIT/HR Insulin Aspart 1 vial 11/04/18 22:00 11/06/18 11:46 Novolog Vial Sliding Scale - SQ 6 units ACHS [facility] Administration Protocol Levothyroxine Sodium 125 mcg 11/05/18 07:00 11/06/18 06:32 Synthroid - PO 125 mcg DAILY@0700 STEPHANIE Administration Lisinopril 40 mg 11/05/18 10:00 11/06/18 10:26 Prinivil PO 40 mg DAILY STEPHANIE Administration Metformin HCl 500 mg 11/04/18 20:30 11/06/18 06:32 Glucophage - PO 500 mg BIDAC STEPHANIE Administration Metoprolol Succinate 50 mg 11/05/18 10:00 11/06/18 10:26 Toprol Xl - PO 50 mg DAILY STEPHANIE Administration Warfarin Sodium 7.5 mg 11/05/18 18:00 11/05/18 18:01 Coumadin - PO 7.5 mg DAILY@1800 [facility] Administration
[2018-11-04] MEDS ORDERED: ACETAMINOPHEN 325 MG TABLET (FP) PO PRN ×2 (20:14→22:21)
[2018-11-04 20:46] VITALS: BMI 32.1
[2018-11-04] MEDS: ATORVASTATIN CA 40 MG TABLET (FP) PO SCH (21:22)
[2018-11-04] MEDS: glyBURIDE 5 MG TABLET (UD) PO SCH (21:23)
[2018-11-04] MEDS: GABAPENTIN 300 MG CAPSULE (FP) PO SCH (21:23)
[2018-11-04] MEDS ORDERED: INSULIN (NOVOLOG) ASPART 100 UNITS/ML 10ML VIAL ONE (21:24)
[2018-11-04] MEDS: metFORMIN HCL 500 MG TABLET (FP) PO SCH (21:25)
[2018-11-04] MEDS: INSULIN SLIDING SCALE (NOVOLOG) 1 VIAL SQ SCH (21:26)
[2018-11-04] MEDS ORDERED: GLYBURIDE PO SCH (22:00)
[2018-11-04] MEDS ORDERED: [UNRECOGNIZED DRUG - OTHER] PO SCH (22:00)
[2018-11-04] MEDS ORDERED: METFORMIN HCL PO SCH (22:00)
[2018-11-05 01:28] LABS: INR 1.14 (0.83-1.09)
[2018-11-05 02:26] LABS: ACTIVATED PTT > 400.0 SECONDS (25.2-36.5)
[2018-11-05] MEDS: metFORMIN HCL 500 MG TABLET (FP) PO SCH ×2 (06:27→17:56)
[2018-11-05] MEDS: LEVOTHYROXINE NA 125 MCG TABLET (FP) PO SCH (06:27)
[2018-11-05] MEDS: glyBURIDE 5 MG TABLET (UD) PO SCH ×2 (06:27→17:56)
[2018-11-05] MEDS: INSULIN SLIDING SCALE (NOVOLOG) 1 VIAL SQ SCH ×4 (06:27→22:38)
[2018-11-05] MEDS ORDERED: INSULIN (NOVOLOG) ASPART 100 UNITS/ML 10ML VIAL ONE ×2 (06:33→17:16)
--- NOTE | 2018-11-05 09:21 | EKG ---
Test Reason : Blood Pressure : / mmHG Vent. Rate : 074 BPM Atrial Rate : 074 BPM P-R Int : 096 ms QRS Dur : 072 ms QT Int : 398 ms P-R-T Axes : -06 048 096 degrees QTc Int : 441 ms SINUS RHYTHM WITH SHORT WI WITH PREMATURE SUPRAVENTRICULAR COMPLEXES NONSPECIFIC ST AND T WAVE ABNORMALITY ABNORMAL ECG WHEN COMPARED WITH ECG OF 19-AUG-2018 05:19, PREMATURE SUPRAVENTRICULAR COMPLEXES ARE NOW PRESENT WI INTERVAL HAS DECREASED Confirmed by WILLIS ECHAVARRIA MD ([id number]) on 11/05/2018 9:20:37 AM Referred By: Confirmed By:WILLIS ECHAVARRIA MD
[2018-11-05] MEDS: GABAPENTIN 300 MG CAPSULE (FP) PO SCH ×2 (10:32→22:35)
[2018-11-05] MEDS: LISINOPRIL 20 MG TABLET (FP) PO SCH (10:33)
--- NOTE | 2018-11-05 11:51 | CON.CARD ---
Consult Consult Specialty:: Cardiology Referred by:: Medicine Reason for Consultation:: s/p [facility] MVR - History of Present Illness Chief Complaint: fall, chest pain History of Present Illness: 63F h/o mechanical MVR, CVA x 2 (23 and 3 years ago), DM, HTN, HLD p/w subtherapeutic INR from [facility]. Takes coumadin 9 mg daily for mechanical MVR and history of CVA. Patient endorses recent med compliance. Patient had been seen at [facility] as an outpatient, recently transitioned care to [facility], patient seen once in my clinic on 09/20/18. Since then patient hadcontinued to go to [facility] for INR checks. Spoke with staff at coumadin clinic, on 10/21 INR was 5.1, coumadin had been 10 mg daily, held two doses and dose decreased to 9.5 mg daily. on 10/31 INR 5.6 and dose decreased to 9 mg daily, held two doses and was eating spinach and broccoli (had not been eating greens before). went to [facility] yesterday as advised, INR was 1.2, referred to ER there but wanted to come to [facility] as she lives in [place]. Complained of fall one week ago with bilateral blurry vision as well as substernal chest pain which resolved. Patient started on heparin gtt here and given 14 mg of warfarin in the ER. Currently feeling nauseated and abd pain, no chest pain, palps, dizziness. - Past Medical History TRIM MECHANIC: Yes: CVA Cardio/Vascular: Yes: HTN, Hyperlipdemia ...: No Endocrine: Yes: Diabetes Mellitus - Alcohol/Substance Use Hx Alcohol Use: No - Smoking History Smoking history: Former smoker Have you smoked in the past 12 months: No Home Medications - Allergies Allergies/Adverse Reactions: Allergies Allergy/AdvReac Type Severity Reaction Status Date / Time No Known Allergies Allergy Verified 11/04/18 15:31 - Home Medications Home Medications: Ambulatory Orders Gabapentin 600 mg PO BID 06/03/15 Warfarin Sodium [Coumadin] 7.5 mg PO DAILY 06/03/15 Atorvastatin Ca [Lipitor] 40 mg PO HS 08/15/17 Lisinopril [Prinivil -] 40 mg PO DAILY 08/15/17 Glyburide/Metformin HCl [Glyburide-Metformin 5-500 mg] 2 each PO BID 04/07/18 Insulin Glargine,Hum.rec.anlog [Lantus] 12 unit SQ ASDIR 04/07/18 Ranitidine [Zantac -] 75 mg PO DAILY PRN 04/07/18 Levothyroxine Sodium [Levoxyl] 125 mcg PO DAILY #30 tablet 08/19/18 Metoprolol Succinate [Toprol XL -] 50 mg PO DAILY #30 tab.sr.24h 08/19/18 Family Disease History - Family Disease History Family History: Unremarkable Review of Systems - Review of Systems Constitutional: reports: No Symptoms Eyes: reports: No Symptoms HENT: reports: No Symptoms Neck: reports: No Symptoms Cardiovascular: reports: No Symptoms Respiratory: reports: No Symptoms Gastrointestinal: reports: No Symptoms Genitourinary: reports: No Symptoms Musculoskeletal: reports: No Symptoms Integumentary: reports: No Symptoms Neurological: reports: No Symptoms Endocrine: reports: No Symptoms Hematology/Lymphatic: reports: No Symptoms Psychiatric: reports: No Symptoms Vital Signs: Vital Signs Temperature 98.4 F 11/05/18 05:57 Pulse Rate 69 11/05/18 05:57 Respiratory Rate 20 11/05/18 06:00 Blood Pressure 123/66 11/05/18 05:57 O2 Sat by Pulse Oximetry (%) 98 11/05/18 06:00 Constitutional: Yes: No Distress, Calm Eyes: Yes: Conjunctiva Clear, EOM Intact HENT: Yes: Atraumatic, Normocephalic Neck: Yes: Supple, Trachea Midline Respiratory: Yes: Regular, CTA Bilaterally Gastrointestinal: Yes: Normal Bowel Sounds, Soft Cardiovascular: Yes: Regular Rate and Rhythm JVD: No Carotid Bruit: No PMI: Non-Displaced Heart Sounds: Yes: S1, S2 Musculoskeletal: No: Back Pain Extremities: No: Cold Edema: No Peripheral Pulses WNL: Yes Peripheral Pulses: 2+ Left Doralis Pedis, 2+ Right Dorsalis Pedis Integumentary: No: Jaundice Neurological: Yes: Alert, Oriented Psychiatric: No: Agitated - Other Data Labs, Other Data: CBC, BMP 11/04/18 16:20 11/04/18 16:20 INR, PTT INR 1.14 (0.83-1.09) H 11/05/18 00:45 Troponin, BNP 11/04/18 16:20 Troponin I < 0.02 Troponin, BNP 11/04/18 16:20 Troponin I < 0.02 Assessment/Plan EKG: sinus, PACs CXR: no acute process CT head: no acute process s/p MVR, subtherapeutic INR - on heparin gtt - received warfarin 14 mg x 1 yesterday, now on 7.5 mg daily - had been stable on 10 mg daily of warfarin until recently, last INR was on which was 5.6 per staff at coumadin clinic on dose of coumadin 9.5 mg daily, patient did not take two doses and has been eating a lot of greens with follow up INR yesterday 1.2 - continue warfarin at 7.5 mg daily - continue heparin gtt for now - given concerns with compliance, history of stroke (although per patient stroke was when INR was therapeutic, not when she was taking lovenox) - monitor INR, goal 2.5-3.5 Abd pain, nausea - manage per primary chest pain - resolved, EKG no ischemic changes - trop neg x 1 - unlikely ACS HTN - continue current meds HLD - cont statin DM - manage per primary
[2018-11-05] MEDS: WARFARIN NA 7.5 MG TABLET (FP) PO SCH (18:01)
--- NOTE | 2018-11-05 18:28 | PN ---
Progress Note, Physician History of Present Illness: doing well - Current Medication List Current Medications: Active Medications Acetaminophen (Tylenol -) 650 mg PO Q6H PRN PRN Reason: PAIN LEVEL 1-5 Atorvastatin Calcium (Lipitor -) 40 mg PO HS [facility] Last Admin: 11/04/18 21:22 Dose: 40 mg Gabapentin (Neurontin -) 600 mg PO BID [facility] Last Admin: 11/05/18 10:32 Dose: 600 mg Glyburide (Diabeta -) 5 mg PO BIDAC [facility] Last Admin: 11/05/18 17:56 Dose: 5 mg Heparin Sodium (Porcine) (Heparin -) 1,000 unit IVPUSH PRN PRN PRN Reason: Heparin Heparin Sodium (Porcine) (Heparin -) 5,000 unit IVPUSH PRN PRN PRN Reason: Heparin Heparin Sodium (Porcine) 25, (000 unit/ Sodium Chloride) 500 mls @ 20 mls/hr IV TITR [facility]; Protocol Last Titration: 11/05/18 06:14 Dose: 950 unit/hr, 19 mls/hr Insulin Aspart (Novolog Vial Sliding Scale -) 1 vial SQ ACHS [facility]; Protocol Last Admin: 11/05/18 17:56 Dose: 10 units Levothyroxine Sodium (Synthroid -) 125 mcg PO DAILY@0700 [facility] Last Admin: 11/05/18 06:27 Dose: 125 mcg Lisinopril (Prinivil) 40 mg PO DAILY [facility] Last Admin: 11/05/18 10:33 Dose: 40 mg Metformin HCl (Glucophage -) 500 mg PO BIDAC [facility] Last Admin: 11/05/18 17:56 Dose: 500 mg Metoprolol Succinate (Toprol Xl -) 50 mg PO DAILY [facility] Last Admin: 11/05/18 10:32 Dose: 50 mg Warfarin Sodium (Coumadin -) 7.5 mg PO DAILY@1800 [facility] Last Admin: 11/05/18 18:01 Dose: 7.5 mg - Objective Vital Signs: Vital Signs Temperature 98.5 F 11/05/18 14:00 Pulse Rate 64 11/05/18 14:00 Respiratory Rate 17 11/05/18 14:00 Blood Pressure 103/58 L 11/05/18 14:00 O2 Sat by Pulse Oximetry (%) 98 11/05/18 06:00 Constitutional: Yes: No Distress HENT: Yes: Atraumatic Neck: Yes: Supple Cardiovascular: Yes: Regular Rate and Rhythm Respiratory: Yes: CTA Bilaterally Extremities: Yes: WNL Neurological: Yes: Alert, Oriented Labs: CBC, BMP 11/04/18 16:20 11/04/18 16:20 INR, PTT INR 1.14 (0.83-1.09) H 11/05/18 00:45 Problem List - Problems (1) HTN (hypertension) Assessment/Plan: on meds stable Code(s): I10 - ESSENTIAL (PRIMARY) HYPERTENSION (2) Diabetes Assessment/Plan: on meds stable Code(s): E11.9 - TYPE 2 DIABETES MELLITUS WITHOUT COMPLICATIONS (3) S/P MVR (mitral valve replacement) Assessment/Plan: on coumadin/heparin inr improving Code(s): Z95.2 - PRESENCE OF PROSTHETIC HEART VALVE
[2018-11-05 22:25] LABS: INR 2.04 (0.83-1.09); PROTHROMBIN TIME (PATIENT) 24.2 SEC (9.7-13.0)
[2018-11-05] MEDS: HEPARIN - 25,000 UNIT in SODIUM CHLORIDE 495 ML IV SCH (22:34)
[2018-11-05] MEDS: ATORVASTATIN CA 40 MG TABLET (FP) PO SCH (22:35)
[2018-11-06] MEDS: glyBURIDE 5 MG TABLET (UD) PO SCH ×2 (06:31→17:01)
[2018-11-06] MEDS: INSULIN SLIDING SCALE (NOVOLOG) 1 VIAL SQ SCH ×4 (06:31→21:42)
[2018-11-06] MEDS: metFORMIN HCL 500 MG TABLET (FP) PO SCH ×2 (06:32→17:00)
[2018-11-06] MEDS: LEVOTHYROXINE NA 125 MCG TABLET (FP) PO SCH (06:32)
[2018-11-06] MEDS ORDERED: INSULIN (NOVOLOG) ASPART 100 UNITS/ML 10ML VIAL ONE ×2 (06:51→21:42)
[2018-11-06 08:27] LABS: HEMATOCRIT 41.3 % (32.4-45.2); HEMOGLOBIN 14.1 GM/dL (10.7-15.3); MCH 28.1 pg (25.7-33.7); MCHC 34.1 g/dl (32.0-36.0); MEAN CELL VOLUME 82.5 fl (80-96); MEAN PLT VOLUME 9.2 fl (7.5-11.1); PLATELET COUNT 194 K/MM3 (134-434); RBC 5.01 M/mm3 (3.60-5.2); RDW 14.8 % (11.6-15.6); WHITE BLOOD COUNT 5.3 K/mm3 (4.0-10.0)
[2018-11-06 08:39] LABS: INR 2.66 (0.83-1.09); PROTHROMBIN TIME (PATIENT) 31.7 SEC (9.7-13.0)
[2018-11-06 09:40] LABS: ACTIVATED PTT 93.9 SECONDS (25.2-36.5)
--- NOTE | 2018-11-06 10:04 | PN ---
Progress Note (short form) - Note Progress Note: s: no chest pain, palps, dizziness Current Medications Acetaminophen (Tylenol -) 650 mg PO Q6H PRN PRN Reason: PAIN LEVEL 1-5 Atorvastatin Calcium (Lipitor -) 40 mg PO HS [facility] Last Admin: 11/05/18 22:35 Dose: 40 mg Gabapentin (Neurontin -) 600 mg PO BID [facility] Last Admin: 11/05/18 22:35 Dose: 600 mg Glyburide (Diabeta -) 5 mg PO BIDAC [facility] Last Admin: 11/06/18 06:31 Dose: 5 mg Heparin Sodium (Porcine) (Heparin -) 1,000 unit IVPUSH PRN PRN PRN Reason: Heparin Heparin Sodium (Porcine) (Heparin -) 5,000 unit IVPUSH PRN PRN PRN Reason: Heparin Heparin Sodium (Porcine) 25, (000 unit/ Sodium Chloride) 500 mls @ 20 mls/hr IV TITR [facility]; Protocol Last Admin: 11/05/18 22:34 Dose: 950 unit/hr, 19 mls/hr Insulin Aspart (Novolog Vial Sliding Scale -) 1 vial SQ ACHS [facility]; Protocol Last Admin: 11/06/18 06:31 Dose: 6 units Levothyroxine Sodium (Synthroid -) 125 mcg PO DAILY@0700 [facility] Last Admin: 11/06/18 06:32 Dose: 125 mcg Lisinopril (Prinivil) 40 mg PO DAILY [facility] Last Admin: 11/05/18 10:33 Dose: 40 mg Metformin HCl (Glucophage -) 500 mg PO BIDAC [facility] Last Admin: 11/06/18 06:32 Dose: 500 mg Metoprolol Succinate (Toprol Xl -) 50 mg PO DAILY [facility] Last Admin: 11/05/18 10:32 Dose: 50 mg Warfarin Sodium (Coumadin -) 7.5 mg PO DAILY@1800 [facility] Last Admin: 11/05/18 18:01 Dose: 7.5 mg Vital Signs Period Temp Pulse Resp BP Sys/Loomis Pulse Ox Last 24 Hr 97.4 F-98.6 F 54-96 17-20 100-156/50-79 98 Constitutional: Yes: No Distress, Calm Eyes: Yes: Conjunctiva Clear, EOM Intact HENT: Yes: Atraumatic, Normocephalic Neck: Yes: Supple, Trachea Midline Respiratory: Yes: Regular, CTA Bilaterally Gastrointestinal: Yes: Normal Bowel Sounds, Soft Cardiovascular: Yes: Regular Rate and Rhythm JVD: No Carotid Bruit: No PMI: Non-Displaced Heart Sounds: Yes: S1, S2 Musculoskeletal: No: Back Pain Extremities: No: Cold Edema: No Peripheral Pulses WNL: Yes Peripheral Pulses: 2+ Left Doralis Pedis, 2+ Right Dorsalis Pedis Integumentary: No: Jaundice Neurological: Yes: Alert, Oriented Psychiatric: No: Agitated Assessment/Plan EKG: sinus, PACs CXR: no acute process CT head: no acute process s/p MVR, subtherapeutic INR - on heparin gtt - received warfarin 14 mg x 1 in the ER now on 7.5 mg daily - had been stable on 10 mg daily of warfarin until recently, last INR was on which was 5.6 per staff at coumadin clinic on dose of coumadin 9.5 mg daily, patient did not take two doses and has been eating a lot of greens with follow up INR on admission 1.2 - monitored on heparin gtt - given concerns with compliance, history of stroke ( although per patient stroke was when INR was therapeutic, not when she was taking lovenox) - continue warfarin at 7.5 mg daily - INR 2.66 today, goal INR 2.5-3.5 -check INR in AM. if stable likely dc tomorrow. Patient states she will follow up at my office for INR checks and follow up visits after discharge Abd pain, nausea - manage per primary chest pain - resolved, EKG no ischemic changes - trop neg x 1 - unlikely ACS HTN - continue current meds HLD - cont statin DM - manage per primary
[2018-11-06] MEDS ORDERED: PT OWN MED DRAWER 7, Y5N ONE (10:24)
[2018-11-06] MEDS: LISINOPRIL 20 MG TABLET (FP) PO SCH (10:26)
[2018-11-06] MEDS: GABAPENTIN 300 MG CAPSULE (FP) PO SCH ×2 (10:26→21:41)
--- NOTE | 2018-11-06 16:12 | DS ---
Physical Examination Vital Signs: Vital Signs Temperature 98.4 F 11/06/18 10:00 Pulse Rate 60 11/06/18 10:00 Respiratory Rate 18 11/06/18 10:00 Blood Pressure 120/58 L 11/06/18 10:00 O2 Sat by Pulse Oximetry (%) 98 11/05/18 20:57 Constitutional: Yes: No Distress HENT: Yes: Atraumatic Neck: Yes: Supple Cardiovascular: Yes: Regular Rate and Rhythm Respiratory: Yes: CTA Bilaterally Gastrointestinal: Yes: Normal Bowel Sounds Extremities: Yes: WNL Edema: No Neurological: Yes: Alert, Oriented Labs: CBC, BMP 11/06/18 07:25 11/04/18 16:20 Discharge Summary Reason For Visit: [employer] NORMALIZED RATIO Current Active Problems Diabetes (Acute) HTN (hypertension) (Acute) Headache, post-traumatic, acute (Acute) Nausea (Acute) Condition: Stable - Instructions Referrals: Fish Lucero MD [Staff Physician] - Radha Mccray MD [Staff Physician] - - Home Medications Comprehensive Discharge Medication List: Ambulatory Orders Gabapentin 600 mg PO BID 06/03/15 Warfarin Sodium [Coumadin] 7.5 mg PO DAILY 06/03/15 Atorvastatin Ca [Lipitor] 40 mg PO HS 08/15/17 Lisinopril [Prinivil -] 40 mg PO DAILY 08/15/17 Glyburide/Metformin HCl [Glyburide-Metformin 5-500 mg] 2 each PO BID 04/07/18 Insulin Glargine,Hum.rec.anlog [Lantus] 12 unit SQ ASDIR 04/07/18 Ranitidine [Zantac -] 75 mg PO DAILY PRN 04/07/18 Levothyroxine Sodium [Levoxyl] 125 mcg PO DAILY #30 tablet 08/19/18 Metoprolol Succinate [Toprol XL -] 50 mg PO DAILY #30 tab.sr.24h 08/19/18 dc home fu cardiologyy for inr
[2018-11-06] MEDS: WARFARIN NA 7.5 MG TABLET (FP) PO SCH (17:01)
--- NOTE | 2018-11-06 17:52 | PN ---
Progress Note, Physician - Current Medication List Current Medications: Active Medications Acetaminophen (Tylenol -) 650 mg PO Q6H PRN PRN Reason: PAIN LEVEL 1-5 Atorvastatin Calcium (Lipitor -) 40 mg PO HS [facility] Last Admin: 11/05/18 22:35 Dose: 40 mg Gabapentin (Neurontin -) 600 mg PO BID [facility] Last Admin: 11/06/18 10:26 Dose: 600 mg Glyburide (Diabeta -) 5 mg PO BIDAC [facility] Last Admin: 11/06/18 17:01 Dose: 5 mg Heparin Sodium (Porcine) (Heparin -) 1,000 unit IVPUSH PRN PRN PRN Reason: Heparin Heparin Sodium (Porcine) (Heparin -) 5,000 unit IVPUSH PRN PRN PRN Reason: Heparin Heparin Sodium (Porcine) 25, (000 unit/ Sodium Chloride) 500 mls @ 20 mls/hr IV TITR [facility]; Protocol Last Titration: 11/06/18 11:51 Dose: 850 unit/hr, 17 mls/hr Insulin Aspart (Novolog Vial Sliding Scale -) 1 vial SQ ACHS [facility]; Protocol Last Admin: 11/06/18 17:00 Dose: 10 units Levothyroxine Sodium (Synthroid -) 125 mcg PO DAILY@0700 [facility] Last Admin: 11/06/18 06:32 Dose: 125 mcg Lisinopril (Prinivil) 40 mg PO DAILY [facility] Last Admin: 11/06/18 10:26 Dose: 40 mg Metformin HCl (Glucophage -) 500 mg PO BIDAC [facility] Last Admin: 11/06/18 17:00 Dose: 500 mg Metoprolol Succinate (Toprol Xl -) 50 mg PO DAILY [facility] Last Admin: 11/06/18 10:26 Dose: 50 mg Warfarin Sodium (Coumadin -) 7.5 mg PO DAILY@1800 [facility] Last Admin: 11/06/18 17:01 Dose: 7.5 mg - Objective Vital Signs: Vital Signs Temperature 98.3 F 11/06/18 17:30 Pulse Rate 60 11/06/18 17:30 Respiratory Rate 18 11/06/18 17:30 Blood Pressure 141/58 L 11/06/18 17:30 O2 Sat by Pulse Oximetry (%) 97 11/06/18 09:00 Constitutional: Yes: No Distress HENT: Yes: Atraumatic Neck: Yes: Supple Cardiovascular: Yes: Regular Rate and Rhythm Respiratory: Yes: CTA Bilaterally Gastrointestinal: Yes: Normal Bowel Sounds Extremities: Yes: WNL Edema: No Neurological: Yes: Alert, Oriented Labs: CBC, BMP 11/06/18 07:25 11/04/18 16:20 INR, PTT INR 2.66 (0.83-1.09) H 11/06/18 07:25 Problem List - Problems (1) HTN (hypertension) Assessment/Plan: on meds stable Code(s): I10 - ESSENTIAL (PRIMARY) HYPERTENSION (2) Diabetes Assessment/Plan: on meds stable Code(s): E11.9 - TYPE 2 DIABETES MELLITUS WITHOUT COMPLICATIONS (3) S/P MVR (mitral valve replacement) Assessment/Plan: on coumadin dc heparin can be dc Code(s): Z95.2 - PRESENCE OF PROSTHETIC HEART VALVE Assessment/Plan dc heparin drip
[2018-11-06 20:36] LABS: INR 2.29 (0.83-1.09); PROTHROMBIN TIME (PATIENT) 27.3 SEC (9.7-13.0)
[2018-11-06] MEDS: ATORVASTATIN CA 40 MG TABLET (FP) PO SCH (21:41)
[2018-11-07] MEDS: LEVOTHYROXINE NA 125 MCG TABLET (FP) PO SCH (06:19)
[2018-11-07] MEDS: INSULIN SLIDING SCALE (NOVOLOG) 1 VIAL SQ SCH (06:19)
[2018-11-07] MEDS: metFORMIN HCL 500 MG TABLET (FP) PO SCH (06:19)
[2018-11-07] MEDS: glyBURIDE 5 MG TABLET (UD) PO SCH (06:19)
[2018-11-07] MEDS ORDERED: INSULIN (NOVOLOG) ASPART 100 UNITS/ML 10ML VIAL ONE ×2 (06:33→12:00)
[2018-11-07 07:56] LABS: HEMATOCRIT 41.8 % (32.4-45.2); HEMOGLOBIN 13.4 GM/dL (10.7-15.3); MCH 26.5 pg (25.7-33.7); MCHC 32.1 g/dl (32.0-36.0); MEAN CELL VOLUME 82.6 fl (80-96); MEAN PLT VOLUME 8.9 fl (7.5-11.1); PLATELET COUNT 189 K/MM3 (134-434); RBC 5.06 M/mm3 (3.60-5.2); RDW 14.8 % (11.6-15.6); WHITE BLOOD COUNT 4.9 K/mm3 (4.0-10.0)
[2018-11-07 09:33] LABS: INR 2.46 (0.83-1.09); PROTHROMBIN TIME (PATIENT) 29.3 SEC (9.7-13.0)
[2018-11-07] MEDS: GABAPENTIN 300 MG CAPSULE (FP) PO SCH (10:09)
[2018-11-07] MEDS: LISINOPRIL 20 MG TABLET (FP) PO SCH (10:10)
--- NOTE | 2018-11-07 11:42 | PN ---
Progress Note (short form) - Note Progress Note: s: no chest pain, palps, dizziness, sob Current Medications Generic Name Dose Route Start Last Admin Trade Name Freq PRN Reason Stop Dose Admin Acetaminophen 650 mg 11/04/18 22:21 Tylenol - PO Q6H PRN PAIN LEVEL 1-5 Atorvastatin Calcium 40 mg 11/04/18 22:00 11/06/18 21:41 Lipitor - PO 40 mg HS STEPHANIE Administration Gabapentin 600 mg 11/04/18 22:00 11/07/18 10:09 Neurontin - PO 600 mg BID STEPHANIE Administration Glyburide 5 mg 11/04/18 20:30 11/07/18 06:19 Diabeta - PO 5 mg BIDAC STEPHANIE Administration Heparin Sodium (Porcine) 1,000 unit 11/04/18 18:27 Heparin - IVPUSH PRN PRN Heparin Insulin Aspart 1 vial 11/04/18 22:00 11/07/18 06:19 Novolog Vial Sliding Scale - SQ 6 units ACHS STEPHANIE Administration Protocol Levothyroxine Sodium 125 mcg 11/05/18 07:00 11/07/18 06:19 Synthroid - PO 125 mcg DAILY@0700 STEPHANIE Administration Lisinopril 40 mg 11/05/18 10:00 11/07/18 10:10 Prinivil PO 40 mg DAILY STEPHANIE Administration Metformin HCl 500 mg 11/04/18 20:30 11/07/18 06:19 Glucophage - PO 500 mg BIDAC STEPHANIE Administration Metoprolol Succinate 50 mg 11/05/18 10:00 11/07/18 10:09 Toprol Xl - PO 50 mg DAILY STEPHANIE Administration Warfarin Sodium 7.5 mg 11/05/18 18:00 11/06/18 17:01 Coumadin - PO 7.5 mg DAILY@1800 [facility] Administration Vital Signs Period Temp Pulse Resp BP Sys/[place] Pulse Ox Last 24 Hr 97.4 F-98.3 F 57-60 14-18 122-141/52-83 97 Constitutional: Yes: No Distress, Calm Eyes: Yes: Conjunctiva Clear Respiratory: Yes: Regular, CTA Bilaterally Gastrointestinal: Yes: Normal Bowel Sounds, Soft Cardiovascular: Yes: Regular Rate and Rhythm JVD: No Heart Sounds: Yes: S1, S2 Extremities: No: Cold Edema: No Peripheral Pulses: 2+ Left Doralis Pedis, 2+ Right Dorsalis Pedis Integumentary: No: Jaundice Neurological: Yes: Alert, Oriented CBC, BMP 11/07/18 07:00 11/04/18 16:20 Assessment/Plan EKG: sinus, PACs CXR: no acute process CT head: no acute process s/p MVR, subtherapeutic INR - on heparin gtt - received warfarin 14 mg x 1 in the ER now on 7.5 mg daily - had been stable on 10 mg daily of warfarin until recently, last INR was on which was 5.6 per staff at coumadin clinic on dose of coumadin 9.5 mg daily, patient did not take two doses and has been eating a lot of greens with follow up INR on admission 1.2 - monitored on heparin gtt - given concerns with compliance, history of stroke ( although per patient stroke was when INR was therapeutic, not when she was taking lovenox) - continue warfarin at 7.5 mg daily - INR stable, ok for dc today from cardiac pov. Patient states she will follow up at my office for INR checks and follow up visits after discharge Abd pain, nausea - manage per primary chest pain - resolved, EKG no ischemic changes - unlikely ACS HTN - continue current meds HLD - cont statin DM - manage per primary
[2018-11-07 12:48] VITALS: BP 128/79; PULSE 64; TEMP 98.4
--- NOTE | 2018-11-07 17:21 | DS ---
Physical Examination Vital Signs: Vital Signs Temperature 98.4 F 11/07/18 10:00 Pulse Rate 64 11/07/18 10:00 Respiratory Rate 18 11/07/18 10:00 Blood Pressure 128/79 11/07/18 10:00 O2 Sat by Pulse Oximetry (%) 97 11/06/18 21:00 Constitutional: Yes: No Distress HENT: Yes: Atraumatic Neck: Yes: Supple Cardiovascular: Yes: Regular Rate and Rhythm Respiratory: Yes: CTA Bilaterally Gastrointestinal: Yes: Normal Bowel Sounds Extremities: Yes: WNL Edema: No Neurological: Yes: Alert, Oriented Labs: CBC, BMP 11/07/18 07:00 11/04/18 16:20 Discharge Summary Reason For Visit: SUPRATHERAPEUTIC INTERNATIONAL NORMALIZED RATIO Condition: Stable - Instructions Referrals: Fish Lucero MD [Staff Physician] - Radha Mccray MD [Staff Physician] - Disposition: HOME - Home Medications Comprehensive Discharge Medication List: Ambulatory Orders Gabapentin 600 mg PO BID 06/03/15 Atorvastatin Ca [Lipitor] 40 mg PO HS 08/15/17 Lisinopril [Prinivil -] 40 mg PO DAILY 08/15/17 Glyburide/Metformin HCl [Glyburide-Metformin 5-500 mg] 2 each PO BID 04/07/18 Insulin Glargine,Hum.rec.anlog [Lantus] 12 unit SQ ASDIR 04/07/18 Ranitidine [Zantac -] 75 mg PO DAILY PRN 04/07/18 Levothyroxine Sodium [Levoxyl] 125 mcg PO DAILY #30 tablet 08/19/18 Metoprolol Succinate [Toprol XL -] 50 mg PO DAILY #30 tab.sr.24h 08/19/18 Warfarin Sodium [Coumadin] 7.5 mg PO DAILY #30 tablet 11/06/18 dc home fu cardio/pmd
== END 2018-11-07 13:31 | disposition home or self-care (01) | DRG 861 ==
LOC: JERFT 15:17 → JER 15:17 → JERBED 18:20 → J6S 20:09 → OBSVTOIN 20:16
PROVIDERS: ADMIT Internal Medicine; ATTEND Internal Medicine
DX: R79.1 Abnormal coagulation profile (principal); E11.9 Type 2 diabetes mellitus without complications; I10 Essential (primary) hypertension; E03.9 Hypothyroidism, unspecified; R51 Headache; R07.89 Other chest pain; R11.0 Nausea; R10.9 Unspecified abdominal pain; Z79.01 Long term (current) use of anticoagulants; Z95.2 Presence of prosthetic heart valve; I69.331 Monoplegia of upper limb following cerebral infarction affecting right dominant side
CPT/HCPCS: 36415; 70450-TC; 71046-TC-FY; 80053; 82272; 82550; 82962; 84484; 85025; 85027; 85610; 85730; 93005; 93010; 99284-25; G0378; J1644

== ENCOUNTER 2019-05-30 18:42 | Emergency (ER) | payer OTHER ==
[2019-05-30 18:58] VITALS: BMI 30.2
--- NOTE | 2019-05-30 19:01 | PDOC ---
Rapid Medical Evaluation Chief Complaint: Lightheaded Time Seen by Provider: 05/30/19 18:58 Medical Evaluation: Allergies Allergy/AdvReac Type Severity Reaction Status Date / Time No Known Allergies Allergy Verified 11/04/18 15:31 Vital Signs Temp Pulse Resp BP Pulse Ox 98.2 F 77 16 141/73 98 05/30/19 18:54 05/30/19 18:54 05/30/19 18:54 05/30/19 18:54 05/30/19 18:54 05/30/19 18:59 I have performed a brief in-person evaluation of this patient. The patient presents with a chief complaint of: Pt on coumadin, s/o Black stools , lightheadedness and abdominal pain for 3 days. s/p colonoscopy and endoscopy on the I have ordered the following: EKG, CXR, CBC, type and screen, CMP, PT/INR The patient will proceed to the ED for further evaluation. Discharge Disposition - Diagnosis Lightheaded - Referrals - Patient Instructions - Post Discharge Activity
[2019-05-30 20:07] LABS: BASO % 1.6 % (0-2.0); EOS % 4.3 % (0-4.5); HEMATOCRIT 44.7 % (32.4-45.2); LYMPH % 27.1 % (8-40); MCH 27.1 pg (25.7-33.7); MCHC 33.6 g/dl (32.0-36.0); MEAN CELL VOLUME 80.6 fl (80-96); MEAN PLT VOLUME 9.3 fl (7.5-11.1); PLATELET COUNT 328 K/MM3 (134-434); RBC 5.54 M/mm3 (3.60-5.2); RDW 15.7 % (11.6-15.6)
[2019-05-30 20:20] LABS: INR 2.53 (0.83-1.09); PROTHROMBIN TIME (PATIENT) 30.1 SEC (9.7-13.0)
[2019-05-30 20:28] LABS: ALBUMIN 3.8 g/dl (3.4-5.0); ALK PHOS 123 U/L (45-117); ANION GAP 10 MMOL/L (8-16); BILIRUBIN,TOTAL 0.3 mg/dL (0.2-1); CALCIUM 9.1 mg/dL (8.5-10.1); CHLORIDE 106 mmol/L (98-107); CO2 26 mmol/L (21-32); CREATININE 0.7 mg/dL (0.55-1.3); GLUCOSE,RANDOM 212 mg/dL (74-106); POTASSIUM 4.3 mmol/L (3.5-5.1); SGOT/AST 65 U/L (15-37); SGPT/ALT 79 U/L (13-61); SODIUM 141 mmol/L (136-145); TOT PROT 7.6 g/dl (6.4-8.2)
--- NOTE | 2019-05-30 20:31 | PDOC ---
History of Present Illness - General Chief Complaint: Rectal Bleed Stated Complaint: DIZZY Time Seen by Provider: 05/30/19 18:58 History Source: Patient, Spouse, Old Records Exam Limitations: No Limitations - History of Present Illness Initial Comments: 05/30/19 20:20 Shakira Vasquez is a 63F with PMH CVA w/residual R-sided deficits, mechanical mitral valve replacement on Coumadin, HTN, HLD, and NIDDM presenting with black stools and diarrhea 9 days after an EGD/colonoscopy w/biopsy. Patient says that she got an EGD/colo at [facility] with Dr. Rocio Hawkins 9 days ago, and ever since she has been feeling weak, dizzy, with one episode of palpitations yesterday. Denies chest pain, SOB, abd pain, urinary sx, constipation. Reason for EGD/colo was for months of diarrhea and stomach upset, feeling nauseated and vomiting with diarrhea, denies eating bad food, no sick contacts, no one at home with same symptoms. Reports a few days of black stools, has picture showing well-formed black stools in toilet bowl without visible blood. Took some Pepto Bismol after this for upset stomach at the recommendation of her GI. Called PMD and was told to go to ED. Has had one episode of this 2 months prior accompanied with upset stomach and diarrhea, went to PMD but did not report black stools, stayed home to rest and ate soft foods and recovered with resolution of black stools. Denies history of hemorrhoids or gastric ulcers, denies vomiting blood or dark vomitus. On coumadin for mechanical mitral valve, says her last INR 2.1, underdosed, but has been taking. Past History - Past Medical History Allergies/Adverse Reactions: Allergies Allergy/AdvReac Type Severity Reaction Status Date / Time No Known Allergies Allergy Verified 05/30/19 18:59 Home Medications: Ambulatory Orders Gabapentin 600 mg PO BID 06/03/15 Atorvastatin Ca [Lipitor] 40 mg PO HS 08/15/17 Lisinopril [Prinivil -] 40 mg PO DAILY 08/15/17 Glyburide/Metformin HCl [Glyburide-Metformin 5-500 mg] 2 each PO BID 04/07/18 Insulin Glargine,Hum.rec.anlog [Lantus] 12 unit SQ ASDIR 04/07/18 Ranitidine [Zantac -] 75 mg PO DAILY PRN 04/07/18 Levothyroxine Sodium [Levoxyl] 125 mcg PO DAILY #30 tablet 08/19/18 Metoprolol Succinate [Toprol XL -] 50 mg PO DAILY #30 tab.sr.24h 08/19/18 Warfarin Sodium [Coumadin] 7.5 mg PO DAILY #30 tablet 11/06/18 Cardiac Disorders: Yes (MECHANICAL heart valve (Mitral)) CVA: Yes (X2 w/ Residual R Upper Extremity Weakness) COPD: No Diabetes: Yes (Insulin dependent ) HTN: Yes Hypercholesterolemia: Yes - Surgical History Cardiac Surgery: Yes (Mitral Valve Replacement) - Immunization History Immunization Up to Date: Yes - Psycho Social/Smoking Cessation Hx Smoking History: Never smoked Have you smoked in the past 12 months: No Hx Alcohol Use: No Drug/Substance Use Hx: No Substance Use Type: None Hx Substance Use Treatment: No Review of Systems - Review of Systems Able to Perform ROS?: Yes Constitutional: Yes: Loss of Appetite, Unintentional Wgt. Loss. No: Chills, Fever HEENTM: No: Eye Pain, Blurred Vision, Hearing Loss, Throat Swelling, Mouth Pain , Difficulty Swallowing Respiratory: No: Cough, Shortness of Breath, Wheezing Cardiac (ROS): Yes: Lightheadedness, Palpitations. No: Chest Pain, Edema ABD/GI: Yes: Diarrhea, Nausea, Vomiting. No: Abd. Pain w/ defecation, Constipated : No: Burning, Dysuria, Discharge, Frequency, Flank Pain, Hematuria Musculoskeletal: No: Symptoms Reported Integumentary: No: Symptoms Reported Neurological: Yes: Dizziness. No: Weakness, Unsteady Gait Endocrine: No: Symptoms Reported Hematologic/Lymphatic: No: Symptoms Reported All Other Systems: Reviewed and Negative *Physical Exam - Vital Signs Last Vital Signs Temp Pulse Resp BP Pulse Ox 98.2 F 77 16 141/73 98 05/30/19 18:54 05/30/19 18:54 05/30/19 18:54 05/30/19 18:54 05/30/19 18:54 - Physical Exam General Appearance: Yes: Nourished, Appropriately Dressed, Obese. No: Apparent Distress HEENT: positive: EOMI, TITO, Normal Voice, Symmetrical, Pharynx Normal. negative: Scleral Icterus (R), Scleral Icterus (L), Pharyngeal Erythema, Tonsillar Exudate, Tonsillar Erythema Neck: positive: Supple. negative: Tender, Lymphadenopathy (R), Lymphadenopathy (L) Respiratory/Chest: positive: Lungs Clear, Normal Breath Sounds. negative: Chest Tender, Respiratory Distress, Decreased Breath Sounds, Crackles, Rales, Rhonchi Cardiovascular: positive: Regular Rhythm, Regular Rate. negative: Murmur Gastrointestinal/Abdominal: positive: Normal Bowel Sounds, Flat, Soft. negative : Tender, Increased Bowel Sounds, Distended, Guarding, Rebound Rectal Exam: positive: heme negative stool, normal exam, normal rectal tone, other (some small formed stool in rectum, no gross blood, no hemorrhoids/fissues ). negative: melena, hemorrhoids Musculoskeletal: positive: Normal Inspection. negative: CVA Tenderness Extremity: positive: Normal Capillary Refill, Normal Inspection, Other (has residual deficits to R side after stroke, unable to move fingers of right hand, decreased strength to R arm and leg). negative: Tender Integumentary: positive: Normal Color, Dry, Warm. negative: Cold, Clammy Neurologic: positive: Alert, Normal Mood/Affect, Normal Response ED Treatment Course - LABORATORY CBC & Chemistry Diagram: 05/30/19 19:47 05/30/19 19:47 - ADDITIONAL ORDERS Additional order review: Laboratory Results 05/30/19 19:47 Blood Type Cancelled Antibody Screen Cancelled 05/30/19 19:47 RBC 5.54 H MCV 80.6 MCHC 33.6 RDW 15.7 H MPV 9.3 Neutrophils % 61.0 Lymphocytes % 27.1 Monocytes % 6.0 Eosinophils % 4.3 D Basophils % 1.6 Medical Decision Making - Medical Decision Making 05/30/19 20:20 Shakira Vasquez is a 63F with PMH CVA w/residual R-sided deficits, mechanical mitral valve replacement on Coumadin, HTN, HLD, and NIDDM presenting with black stools and diarrhea 9 days after an EGD/colonoscopy w/biopsy. Patient presents with likely UGIB with well-formed black stools after an EGD with biopsy, but also has had this presentation 2 months before ever having the EGD. Ddx includes gastric ulcers vs. over anti-coagulated vs. post-EGD bleed. LGIB less likely, no bleeding noted on rectal exam or noted by patient. Will evaluate via: T/S CMP CBC CP ECG Hemoccult 05/30/19 20:47 Type and Screen, Mag, Phos hemolyzed Labs show Hgb 15, BUN 12, hemoccult negative, no black or red stool on rectal exam, results consistent with no active bleed INR 2.53, within range for mechanical valve Troponin negative Patient not having any symptoms at this time, VS stable, labs show no evidence of active bleeding. Patient stable to go home with f/u PMD and GI. 05/30/19 21:04 ECG shows unusual P waves, inverted in II, V2 inverted T wave, HR 72, QTc 451 Discharge - Discharge Information Problems reviewed: Yes Clinical Impression/Diagnosis: Lightheaded, Melena Condition: Stable Disposition: HOME - Admission No - Follow up/Referral Referrals: Jewel Marti MD [Staff Physician] - - Patient Discharge Instructions Additional Instructions: Today you were evaluated for black stools. You performed blood labs, performed a rectal exam, and none of your labs reveal evidence of active bleeding. You do not show any signs of anemia or blood loss. Because you are stable at this time , have had one prior episode of this in the past without complications, and we are not concerned about an active bleed now, we believe it is safe for you to return home and follow-up with your primary doctor. At home, please eat soft foods as tolerated and stay hydrated. Please follow-up with your primary doctor in the next 3 days for further care. Let them know that your labs are good, and that you need to see your mixed crop and livestock farmer in the next week for further care. If you do not have this kind of doctor, please see the referral we have given your for Dr. Marti. If you experience worsening abdominal pain, fever, chills, have more red or black stools, diarrhea, nausea, vomiting, or any other new or concerning symptoms, please return to the emergency room. - Post Discharge Activity
--- NOTE | 2019-05-30 21:27 | PDOC ---
Documentation entered by Yvette Lopes SCRIBE, acting as scribe for Aman Mondragon MD. Aman Mondragon MD: This documentation has been prepared by the scribe, Yvette Lopes SCRIBE, under my direction and personally reviewed by me in its entirety. I confirm that the documentation accurately reflects all work, treatment, procedures, and medical decision making performed by me. Attending Attestation - Resident Resident Name: EnmanuelTr - ED Attending Attestation I have performed the following: I have examined & evaluated the patient, The case was reviewed & discussed with the resident, I agree w/resident's findings & plan, Exceptions are as noted - HPI HPI: 05/30/19 21:10 The patient is a 63-year-old female with a past medical history significant for CVA (with R. upper extremity weakness), s/p mechanical mitral valve replacement (on Coumadin), DM, HTN, and HLD who presents to the emergency department with black stool per rectum. The patient reports a month history of waking up with an upset stomach, which is aggravated after eating and progressives into abdominal pain, nausea, vomiting, and diarrhea. The patient reports on the she had an endoscopy and colonoscopy done for the symptoms, in [facility] with Dr. Salazar, during the procedure, she had multiple biopsies, pending results. The patient reports the following day she restarted on coumadin. The patient reports since the procedure, shes been feeling dizzy/lightheaded, weak, associated with abdominal pain with diarrhea. The patient reports shes been having loose black-colored stool since the procedure. The patient states she was recommended by the office nurse to take Pepto Bismol yesterday, the patient reports taking it yesterday following she had one episode of hard stool, which was black. Denies having a bowel movement today. The patient reorts today she was at the hospital getting her coumadin levels checks, following she was hungry and had a hotdog. The patient reports following shes been having abdominal pain, nausea, and vomiting. Denies chest pain or shortness of breath. Denies urinary symptoms. Allergies: NKDA - Physicial Exam PE: 05/30/19 20:44 General: no acute disress abd: soft nontender card: rr, no mrg pulm: cta b/l, no rales - Medical Decision Making 05/30/19 19:52 63y F hx of CVA, pt had an EGD / colostomy for GI evlauation of stomach discomforts. has been feeling weak/lightheaded/dizzy without associated cp, sob, abd pain since the procedure. Pt has been having some dark stool since als onotes she has been tking peptol bismol. 05/30/19 20:45 pt labs reviwed noted not anemic, normal BUN, guaiac negative will dc the pt to fu with PMD/GI return precautions were discussed Heart Score/ECG Review - ECG Impressions Comment:: 05/31/19 00:15 Twelve-lead EKG was performed and reviewed by me. There is normal sinus rhythm with a normal rate. Rate rate of 72 unusual P wave axis nonspecific st wave chnges
[2019-05-30 21:31] VITALS: BP 138/72; PULSE 76; TEMP 98.6
--- NOTE | 2019-05-31 20:21 | EKG ---
Test Reason : Blood Pressure : / mmHG Vent. Rate : 072 BPM Atrial Rate : 072 BPM P-R Int : 156 ms QRS Dur : 078 ms QT Int : 412 ms P-R-T Axes : -31 040 090 degrees QTc Int : 451 ms UNUSUAL P AXIS, POSSIBLE ECTOPIC ATRIAL RHYTHM NONSPECIFIC ST AND T WAVE ABNORMALITY ABNORMAL ECG WHEN COMPARED WITH ECG OF 04-NOV-2018 17:47, ECTOPIC ATRIAL RHYTHM HAS REPLACED SINUS RHYTHM Confirmed by MD TRACI, ELIZ ([id number]) on 05/31/2019 8:20:49 PM Referred By: Confirmed By:ELIZ AVILES MD
== END 2019-05-30 21:28 | disposition home or self-care (01) ==
LOC: JER 18:42
DX: R42 Dizziness and giddiness (principal); K92.1 Melena; Z86.73 Personal history of transient ischemic attack (TIA), and cerebral infarction without residual deficits; I34.1 Nonrheumatic mitral (valve) prolapse; I10 Essential (primary) hypertension; E78.5 Hyperlipidemia, unspecified; E11.9 Type 2 diabetes mellitus without complications; Z79.01 Long term (current) use of anticoagulants
CPT/HCPCS: 36415; 80053; 82272; 82550; 84484; 85025; 85610; 93005; 93010; 99284-25

== ENCOUNTER 2019-07-16 09:13 | Emergency (ER) | payer OTHER ==
[2019-07-16 09:19] VITALS: BP 165/75; PULSE 69; TEMP 98; BMI 29.2
[2019-07-16 10:16] LABS: PROTHROMBIN TIME (PATIENT) 95.1 SEC (9.7-13.0)
--- NOTE | 2019-07-16 10:17 | PDOC ---
History of Present Illness - General Chief Complaint: Ear Problem Stated Complaint: LT. EAR BLEEDING, ON COUMADIN Time Seen by Provider: 07/16/19 09:31 History Source: Patient Exam Limitations: No Limitations Past History - Past Medical History Allergies/Adverse Reactions: Allergies Allergy/AdvReac Type Severity Reaction Status Date / Time No Known Allergies Allergy Verified 07/16/19 09:19 Home Medications: Ambulatory Orders Gabapentin 600 mg PO BID 06/03/15 Atorvastatin Ca [Lipitor] 40 mg PO HS 08/15/17 Lisinopril [Prinivil -] 40 mg PO DAILY 08/15/17 Glyburide/Metformin HCl [Glyburide-Metformin 5-500 mg] 2 each PO BID 04/07/18 Insulin Glargine,Hum.rec.anlog [Lantus] 12 unit SQ ASDIR 04/07/18 Ranitidine [Zantac -] 75 mg PO DAILY PRN 04/07/18 Metoprolol Succinate [Toprol XL -] 50 mg PO DAILY #30 tab.sr.24h 08/19/18 Levothyroxine [Synthroid -] 112 mcg PO DAILY 07/16/19 Warfarin Na [Coumadin] 5 mg PO HS 07/16/19 Warfarin Sodium [Coumadin] 4 mg PO HS 07/16/19 Cardiac Disorders: Yes (MECHANICAL heart valve (Mitral)) CVA: Yes (X2 w/ Residual R Upper Extremity Weakness) COPD: No Diabetes: Yes (Insulin dependent ) HTN: Yes Hypercholesterolemia: Yes - Surgical History Cardiac Surgery: Yes (Mitral Valve Replacement) - Immunization History Immunization Up to Date: Yes - Psycho Social/Smoking Cessation Hx Smoking History: Never smoked Have you smoked in the past 12 months: No Information on smoking cessation initiated: No Hx Alcohol Use: No Drug/Substance Use Hx: No Substance Use Type: None Hx Substance Use Treatment: No *Physical Exam - Vital Signs Last Vital Signs Temp Pulse Resp BP Pulse Ox 98 F 69 19 165/75 100 07/16/19 09:17 07/16/19 09:17 07/16/19 09:17 07/16/19 09:17 07/16/19 09:17 - Physical Exam HEENT: positive: Pharynx Normal, Other (R ear TM normal, L ear TM intact, no bulging TM noted, small amount of blood in ear, no bullae in ear noted, no mastoid tenderness). negative: Rhinorrhea, Sinus Tenderness Neurologic: positive: Alert Medical Decision Making - Medical Decision Making 63 y/o F hx of CVA, rheumatic fever, mitral valve replacement (on Coumadin), HTN , HLD, DM presents with L ear bleeding from last night. Mentions her L ear was feeling a bit itchy x 2 days and has been using Q-tip in her ear. Denies fever, ear pain, hearing loss, tinnitus, dizziness, vomiting, sob, cp, other complaints. Patient's last INR check was 2 weeks ago and it was normal L ear TM intact No evidence of infection of L ear D/W Dr. Davis - recommends INR check 07/16/19 10:10 INR 7.89 Patient denies other active bleeding D/W patient's contact worker lithography, Dr. Trish Jones, who manages patient's INR Recommends holding off Coumadin x 2 days as well as allowing patient to eat spinach today; patient is to f/u with Dr. Chambers in 2 days for repeat INR check 07/16/19 10:44 Discharge - Discharge Information Problems reviewed: Yes Clinical Impression/Diagnosis: Elevated INR Condition: Stable Disposition: HOME - Admission No - Additional Discharge Information Prescription Drug Monitoring Program (I-STOP) results: I-STOP not reviewed - Follow up/Referral Referrals: Christine Segura MD [Primary Care Provider] - - Patient Discharge Instructions Additional Instructions: Thank you for choosing [facility]. It was a pleasure taking care of you. Please do not take your Coumadin today and tomorrow You may eat leafy green vegetables like spinach today. However, do not eat any leafy green tomorrow Follow-up with Dr. Trish Jones on 07/18 for repeat INR check Return to the Emergency Department if your symptoms worsen or persist, you have fever, shortness of breath, chest pain, severe abdominal pain, vomiting, heavy bleeding or other concerning symptoms. - Post Discharge Activity
[2019-07-16 10:34] LABS: INR 7.89 (0.83-1.09)
== END 2019-07-16 11:00 | disposition home or self-care (01) ==
LOC: JER 09:13
DX: Z86.73 Personal history of transient ischemic attack (TIA), and cerebral infarction without residual deficits (principal); D68.9 Coagulation defect, unspecified; Z79.01 Long term (current) use of anticoagulants; Z95.2 Presence of prosthetic heart valve
CPT/HCPCS: 36415; 85610; 99283-25

== ENCOUNTER 2019-10-03 10:30 | Emergency (ER) | payer OTHER ==
[2019-10-03 10:59] VITALS: BMI 18.0
[2019-10-03] MEDS ORDERED: ACETAMINOPHEN 1000 MG/100 ML VIAL (NON FORMULARY) IVPB ONE (11:25)
[2019-10-03] MEDS ORDERED: SODIUM CHLORIDE 1,000 ML IV STA (11:25)
--- NOTE | 2019-10-03 11:27 | PDOC ---
History of Present Illness - General Chief Complaint: Cold Symptoms Stated Complaint: FLU LIKE SYMPTOMS Time Seen by Provider: 10/03/19 10:52 History Source: Patient, Old Records Exam Limitations: No Limitations - History of Present Illness Initial Comments: 10/03/19 11:25 63y F with PMH of Rheumatic fever, Mechanical Mitral valve (23y ago c/b CVA), HTN, IDDM, HLD, s/p elective cholecystectomy 09/25/2019 presenting to ED with complaints of 3 days of productive cough with yellow sputum, congestion, sore throat, body aches, generalized malaise and R flank pain. Pt denies fever but endorses chills. No sick contacts, denies chest pain, sob, hematuria, vomiting, diarrhea, abdominal pain. She has been taking Tylenol for the pain and pt states that she took "4 pills" yesterday at 1800. PMD: Imelda PMH: see hpi PSH: see hpi Meds: Warfarin, see med rec Allergies: nkda Past History - Past Medical History Allergies/Adverse Reactions: Allergies Allergy/AdvReac Type Severity Reaction Status Date / Time No Known Allergies Allergy Verified 10/03/19 10:36 Home Medications: Ambulatory Orders Gabapentin 600 mg PO BID 06/03/15 Atorvastatin Ca [Lipitor] 40 mg PO HS 08/15/17 Lisinopril [Prinivil -] 40 mg PO DAILY 08/15/17 Glyburide/Metformin HCl [Glyburide-Metformin 5-500 mg] 2 each PO BID 04/07/18 Insulin Glargine,Hum.rec.anlog [Lantus] 12 unit SQ ASDIR 04/07/18 Ranitidine [Zantac -] 75 mg PO DAILY PRN 04/07/18 Metoprolol Succinate [Toprol XL -] 50 mg PO DAILY #30 tab.sr.24h 08/19/18 Levothyroxine [Synthroid -] 112 mcg PO DAILY 07/16/19 Warfarin Na [Coumadin] 5 mg PO HS 07/16/19 Warfarin Sodium [Coumadin] 4 mg PO HS 07/16/19 Albuterol Sulfate Inhaler - [Ventolin HFA Inhaler -] 1 - 2 inh PO Q4H #1 inhaler 10/03/19 Azithromycin [Zithromax 250mg Tablets -] 250 mg PO UTDICT #6 tab 10/03/19 Cardiac Disorders: Yes (MECHANICAL heart valve (Mitral)) CVA: Yes (X2 w/ Residual R Upper Extremity Weakness) COPD: No Diabetes: Yes (Insulin dependent ) HTN: Yes Hypercholesterolemia: Yes - Surgical History Cardiac Surgery: Yes (Mitral Valve Replacement) Cholecystectomy: Yes (09/2019) - Immunization History Immunization Up to Date: Yes - Psycho Social/Smoking Cessation Hx Smoking History: Never smoked Have you smoked in the past 12 months: No Information on smoking cessation initiated: No Hx Alcohol Use: No Drug/Substance Use Hx: No Substance Use Type: None Hx Substance Use Treatment: No Review of Systems - Review of Systems Constitutional: Yes: Chills. No: Fever HEENTM: Yes: Nose Congestion, Throat Pain Respiratory: Yes: Cough Cardiac (ROS): No: Symptoms Reported ABD/GI: Yes: Nausea. No: Diarrhea, Vomiting : Yes: See HPI Integumentary: Yes: See HPI Neurological: No: Symptoms reported *Physical Exam - Vital Signs Last Vital Signs Temp Pulse Resp BP Pulse Ox 97.4 F L 64 17 145/72 99 10/03/19 10:45 10/03/19 10:45 10/03/19 10:45 10/03/19 10:45 10/03/19 10:45 - Physical Exam General Appearance: Yes: Nourished, Appropriately Dressed. No: Apparent Distress HEENT: positive: EOMI, TITO, Normal ENT Inspection. negative: Scleral Icterus ( R), Scleral Icterus (L) Neck: positive: Trachea midline, Supple. negative: Lymphadenopathy (R), Lymphadenopathy (L) Respiratory/Chest: positive: Lungs Clear, Rhonchi. negative: Crackles, Rales, Stridor, Wheezing Cardiovascular: positive: Regular Rhythm, Regular Rate, S1, S2. negative: Edema , JVD, Murmur Gastrointestinal/Abdominal: positive: Normal Bowel Sounds, Soft. negative: Tender Musculoskeletal: positive: CVA Tenderness (R) Extremity: positive: Normal Capillary Refill Integumentary: positive: Normal Color, Dry, Warm Neurologic: positive: correction officer head II-XII NML intact, Fully Oriented, Alert, Normal Mood/ Affect, Normal Response, Motor Strength 5/5 ED Treatment Course - LABORATORY CBC & Chemistry Diagram: 10/03/19 11:35 10/03/19 11:35 Medical Decision Making - Medical Decision Making 10/03/19 20:10 63y F presenting with URI symptoms. vitals wnl given recent surgery, will run labs and cxr, tylenol level. -iv fluids, ofirmev, albuterol and saline neb 10/03/19 20:11 no white count. supratherapuetic inr. lfts elevated. most recent per surgeon (DR. Rafael Sanchez at [facility]) office: alkphos 200s, ast 190s and alt 40s. no labs since. pt scheduled for sono today, given lfts, will order ruq sono here. cxr negative for infiltrate or consolidation. ruq sono demonstrates fatty liver. normal duct sizes. pt feeling better. given sono report. advised to f/u with pmd. given rx for albuterol and zpack. Discharge - Discharge Information Problems reviewed: Yes Clinical Impression/Diagnosis: Supratherapeutic INR URI (upper respiratory infection) Qualifiers: URI type: unspecified URI Qualified Code(s): J06.9 - Acute upper respiratory infection, unspecified Condition: Good Disposition: HOME - Admission No - Additional Discharge Information Prescriptions: Albuterol Sulfate Inhaler - [Ventolin HFA Inhaler -] 1 - 2 inh PO Q4H #1 inhaler Azithromycin [Zithromax 250mg Tablets -] 250 mg PO UTDICT #6 tab - Follow up/Referral Referrals: Christine Segura MD [Primary Care Provider] - - Patient Discharge Instructions Patient Printed Discharge Instructions: DI for Viral Upper Respiratory Infection -- Adult Additional Instructions: You have an upper respiratory tract infection. Please keep yourself well hydrated, drink plenty of fluids. You can take Tylenol (no more than 650mg every 4 hours) or Advil for the pain. You have a prescription for an antibiotic and an inhaler. Use as directed. Your INR is also elevated, please skip the next dose. Follow up with Dr. Segura on Sunday or early next week. Come back to the ER if you have difficulty breathing, have chest pain or if any new or concerning symptom develops. Thank you - Post Discharge Activity
--- NOTE | 2019-10-03 11:54 | PDOC ---
Documentation entered by Melissa Venegas SCRIBE, acting as scribe for Acacia Whitman MD. Acacia Whitman MD: This documentation has been prepared by the Theo reilly Adrianna, SCRIBE, under my direction and personally reviewed by me in its entirety. I confirm that the documentation accurately reflects all work, treatment, procedures, and medical decision making performed by me. Attending Attestation - Resident Resident Name: Orquidea Watt - ED Attending Attestation I have performed the following: I have examined & evaluated the patient, The case was reviewed & discussed with the resident, I agree w/resident's findings & plan, Exceptions are as noted - HPI HPI: 63 year old female, with PMH of CVA (with residual R-sided deficits), rheumatic fever, mechanical mitral valve replacement (on Coumadin), HTN, HLD, and NIDDM, presents to the ED with URI symptoms for 3 days. Patient complains of cough, congestion, and sore throat. She endorses associated diffuse body aches, malaise and right flank pain. pt is post op 1 week following llap pedro 09/25/18 doen at [facility]. cough nonproductive. fever myalgia and sore throat. no sob. no leg swelling. nausea, no vomiting, no dysuria. no hematuria. no change to stools. Allergies: NKA, NKDA Surgical History: mitral valve replacement, elective cholecystectomy Social History: Denies EtOH, tobacco, or illicit drug use PCP: Dr. Segura 10/03/19 11:43 - Physicial Exam PE: 10/03/19 11:44 awake alert lungs with crackles coarse breath sounds left base. heart rrr no mrg abd soft appropriately tender, incisions CDI healing. no erythema. no exudate. alert oriented x 3. - Medical Decision Making 10/03/19 11:54 63 yo F h/o valve replacement cva residual weakness, post op 1 week lap pedro with nasal congestion fever myaglia sore throat,cough differential uti, pneumonia, influenze, other viral syndrome. bronchitis plan labs cxr ua . will treat with ivf, zofran for nausea, . pt been taking a lot of tylenol last dose last pm at 6 pm. 10/03/19 12:10/03/19 13:01 cxr unremarkable. labs noted for mild elevation of LfT will contact pt surgeon to compare to post op and preop labs. ua negative for infection cxr negative. flu negative. will give duoneb for bronchial sounds. likely viral bronchitis.
[2019-10-03 12:02] LABS: EOS % 9.8 % (0-4.5); HEMOGLOBIN 14.2 GM/dL (10.7-15.3); LYMPH % 17.3 % (8-40); MCH 26.5 pg (25.7-33.7); MCHC 33.1 g/dl (32.0-36.0); MEAN CELL VOLUME 80.1 fl (80-96); MEAN PLT VOLUME 8.7 fl (7.5-11.1); MONO % 9.5 % (3.8-10.2); NEUT % 62.4 % (42.8-82.8); PLATELET COUNT 240 K/MM3 (134-434); RBC 5.36 M/mm3 (3.60-5.2); RDW 15.4 % (11.6-15.6); URINE APPEARANCE CLEAR; URINE BILIRUBIN NEGATIVE (NEGATIVE); URINE COLOR YELLOW; URINE GLUCOSE (UA) 2+ (NEGATIVE); URINE KETONE NEGATIVE (NEGATIVE); URINE LEUK ESTERASE NEGATIVE (NEGATIVE); URINE NITRITE NEGATIVE (NEGATIVE); URINE PROTEIN NEGATIVE (NEGATIVE); URINE UROBILINOGEN 0.2 mg/dL (0.2-1.0); WHITE BLOOD COUNT 7.3 K/mm3 (4.0-10.0)
[2019-10-03 12:25] LABS: PROTHROMBIN TIME (PATIENT) 49.8 SEC (9.7-13.0)
[2019-10-03 12:28] LABS: ACTIVATED PTT 56.5 SECONDS (25.2-36.5); ALBUMIN 3.8 g/dl (3.4-5.0); BILIRUBIN,TOTAL 0.4 mg/dL (0.2-1); BLOOD UREA NITROGEN 13.7 mg/dL (7-18); CALCIUM 9.3 mg/dL (8.5-10.1); CREATININE 0.6 mg/dL (0.55-1.3); POTASSIUM 4.3 mmol/L (3.5-5.1); TOT PROT 7.4 g/dl (6.4-8.2)
[2019-10-03 12:42] LABS: INR 4.16 (0.83-1.09)
[2019-10-03] MEDS ORDERED: SODIUM CHLORIDE FOR INHALATION 3 ML VIAL.NEB IH ONE (13:01)
[2019-10-03] MEDS ORDERED: ALBUTEROL SO4 0.083% IH SOL 2.5 MG/3 ML VIAL.NEB. NEB ONE ×2 (13:01→13:11)
[2019-10-03 16:30] VITALS: BP 156/63; PULSE 20; TEMP 98.9
== END 2019-10-03 16:30 | disposition home or self-care (01) ==
LOC: JER 10:30
PROC: 3E0F7GC Introduction of Other Therapeutic Substance into Respiratory Tract, Via Natural or Artificial Opening (ICD-10-PCS; principal; 2019-10-03)
PROC: 3E0F7GC Introduction of Other Therapeutic Substance into Respiratory Tract, Via Natural or Artificial Opening (ICD-10-PCS; 2019-10-03)
PROC: 3E033NZ Introduction of Analgesics, Hypnotics, Sedatives into Peripheral Vein, Percutaneous Approach (ICD-10-PCS; 2019-10-03)
DX: J06.9 Acute upper respiratory infection, unspecified (principal); R79.1 Abnormal coagulation profile; I10 Essential (primary) hypertension; E78.00 Pure hypercholesterolemia, unspecified; E11.9 Type 2 diabetes mellitus without complications; Z79.4 Long term (current) use of insulin; E03.9 Hypothyroidism, unspecified; I69.831 Monoplegia of upper limb following other cerebrovascular disease affecting right dominant side; Z95.2 Presence of prosthetic heart valve; Z90.49 Acquired absence of other specified parts of digestive tract
CPT/HCPCS: 36415; 71046-TC-FY; 76705-TC; 80053; 80307; 81003; 85025; 85610; 85730; 87086; 87804; 99285-25; J0131; J7030

== ENCOUNTER 2020-11-20 17:08 | Inpatient (IN) | payer OTHER ==
[2020-11-20] MEDS ORDERED: SODIUM CHLORIDE 1,000 ML IV STA (18:18)
[2020-11-20 18:51] LABS: EOS % 3.2 % (0-4.5); HEMATOCRIT 46.7 % (32.4-45.2); HEMOGLOBIN 15.3 GM/dL (10.7-15.3); LYMPH % 30.2 % (8-40); MCH 27.4 pg (25.7-33.7); MCHC 32.8 g/dl (32.0-36.0); MEAN CELL VOLUME 83.6 fl (80-96); MEAN PLT VOLUME 9.1 fl (7.5-11.1); MONO % 6.8 % (3.8-10.2); NEUT % 58.8 % (42.8-82.8); PLATELET COUNT 225 K/MM3 (134-434); RBC 5.59 M/mm3 (3.60-5.2); RDW 15.1 % (11.6-15.6); WHITE BLOOD COUNT 7.4 K/mm3 (4.0-10.0)
[2020-11-20 19:09] LABS: CHLORIDE 107 mmol/L (98-107); SODIUM 137 mmol/L (136-145)
[2020-11-20 19:12] LABS: ALBUMIN 3.7 g/dl (3.4-5.0); CALCIUM 9.4 mg/dL (8.5-10.1)
[2020-11-20 19:13] LABS: INR 2.69 (0.83-1.09); PROTHROMBIN TIME (PATIENT) 32.1 SEC (9.7-13.0)
[2020-11-20 19:14] LABS: ANION GAP 5 MMOL/L (8-16); BLOOD UREA NITROGEN 14.6 mg/dL (7-18); CO2 25 mmol/L (21-32); GLUCOSE,RANDOM 95 mg/dL (74-106); MAGNESIUM 1.9 mg/dL (1.8-2.4)
[2020-11-20 19:15] LABS: ACTIVATED PTT 53.3 SECONDS (25.2-36.5); SGOT/AST 22 U/L (15-37); SGPT/ALT 22 U/L (13-61)
[2020-11-20 19:16] LABS: CHOLESTEROL 166 mg/dL (50-200); CREATININE 0.5 mg/dL (0.55-1.3); TRIGLYCERIDES 240 mg/dL (0-150)
[2020-11-20 19:17] LABS: BILIRUBIN,TOTAL 0.4 mg/dL (0.2-1); LDL CHOLESTEROL (ONLY SJRH) 68 mg/dL (5-100); TOT PROT 7.4 g/dl (6.4-8.2)
[2020-11-20 19:18] LABS: ALK PHOS 84 U/L (45-117); HDL CHOLESTEROL 67 mg/dL (40-60)
[2020-11-20] MEDS ORDERED: ATROPINE SULFATE 1 MG/10 ML DISP.SYRIN IVPUSH PRN (19:31)
[2020-11-20] MEDS ORDERED: ATROPINE SULFATE 1 MG/10 ML DISP.SYRIN ONE (19:49)
[2020-11-21] MEDS: SODIUM CHLORIDE 1,000 ML IV SCH ×2 (04:20→11:11)
[2020-11-21] MEDS ORDERED: INSULIN SLIDING SCALE (NOVOLOG) 1 VIAL SQ SCH (07:00)
[2020-11-21] MEDS: INSULIN SLIDING SCALE (NOVOLOG) 1 VIAL SQ SCH ×4 (07:44→21:49)
[2020-11-21 07:48] LABS: BASO % 0.4 % (0-2.0); EOS % 4.2 % (0-4.5); HEMATOCRIT 21.6 % (32.4-45.2); HEMOGLOBIN 7.1 GM/dL (10.7-15.3); LYMPH % 31.8 % (8-40); MCHC 32.8 g/dl (32.0-36.0); MEAN CELL VOLUME 85.3 fl (80-96); MEAN PLT VOLUME 8.8 fl (7.5-11.1); MONO % 6.5 % (3.8-10.2); NEUT % 57.1 % (42.8-82.8); PLATELET COUNT 107 K/MM3 (134-434); RBC 2.54 M/mm3 (3.60-5.2); RDW 15.1 % (11.6-15.6); WHITE BLOOD COUNT 2.9 K/mm3 (4.0-10.0)
[2020-11-21 08:03] LABS: PROTHROMBIN TIME (PATIENT) 106.9 SEC (9.7-13.0)
[2020-11-21 08:05] LABS: INR 9.27 (0.83-1.09)
[2020-11-21 10:41] LABS: INR 2.44 (0.83-1.09); PROTHROMBIN TIME (PATIENT) 28.8 SEC (9.7-13.0)
[2020-11-21 10:44] LABS: ACTIVATED PTT 44.1 SECONDS (25.2-36.5)
[2020-11-21] MEDS ORDERED: ACETAMINOPHEN 325 MG TABLET (FP) PO ONE (11:06)
[2020-11-21] MEDS ORDERED: PNEUMOC 13-VAL CONJ-DIP CRM/PF 0.5 ML DISP.SYRIN IM ONE (11:46)
[2020-11-21 11:52] LABS: BLOOD UREA NITROGEN 9.9 mg/dL (7-18); CALCIUM 8.5 mg/dL (8.5-10.1)
[2020-11-21 11:56] LABS: CREATININE 0.5 mg/dL (0.55-1.3)
[2020-11-21 11:57] LABS: BILIRUBIN,TOTAL 0.7 mg/dL (0.2-1)
[2020-11-21 12:07] LABS: ALBUMIN 3.3 g/dl (3.4-5.0); TOT PROT 6.7 g/dl (6.4-8.2)
[2020-11-21] MEDS ORDERED: PT OWN MED DRAWER 7, Y5N ONE ×2 (12:16→16:13)
[2020-11-21] MEDS: MUPIROCIN 2% TOPICAL OINTMENT FOR DECOLONIZATION NS SCH ×2 (12:38→21:41)
[2020-11-21] MEDS ORDERED: FLU VACCINE (FLULAVAL) PF 60 MCG/0.5 ML SYRINGE 2020-2021 IM ONE (13:00)
[2020-11-21] MEDS ORDERED: PNEUMOCOCCAL 23 VACCINE 0.5 ML VIAL IM ONE (13:00)
[2020-11-21 13:14] LABS: BASO % 1.1 % (0-2.0); EOS % 3.7 % (0-4.5); HEMATOCRIT 41.4 % (32.4-45.2); HEMOGLOBIN 13.8 GM/dL (10.7-15.3); LYMPH % 29.2 % (8-40); MCH 27.7 pg (25.7-33.7); MCHC 33.3 g/dl (32.0-36.0); MEAN CELL VOLUME 83.3 fl (80-96); MONO % 6.1 % (3.8-10.2); NEUT % 59.9 % (42.8-82.8); PLATELET COUNT 192 K/MM3 (134-434); RBC 4.97 M/mm3 (3.60-5.2); RDW 15.2 % (11.6-15.6); WHITE BLOOD COUNT 5.2 K/mm3 (4.0-10.0)
[2020-11-21] MEDS ORDERED: LEVOTHYROXINE SODIUM 100 MCG VIAL IVPUSH SCH (15:00)
[2020-11-21] MEDS ORDERED: hydrALAZINE HCL 20 MG/ML VIAL IVPUSH PRN (16:32)
[2020-11-21] MEDS ORDERED: amLODIPine BESYLATE 5 MG TABLET (FP) PO ONE (16:39)
[2020-11-21] MEDS ORDERED: NIFEdipine E.R. 30 MG TABLET PO SCH (16:45)
[2020-11-21] MEDS: LEVOTHYROXINE SODIUM 100 MCG VIAL IVPUSH SCH (17:04)
[2020-11-21] MEDS: ACETAMINOPHEN 1000 MG/100 ML VIAL (NON FORMULARY) IVPB PRN (19:00)
[2020-11-21] MEDS: hydrALAZINE HCL 20 MG/ML VIAL IVPUSH PRN (19:15)
[2020-11-21] MEDS ORDERED: WARFARIN NA 2 MG TABLET ONE (21:40)
[2020-11-21] MEDS ORDERED: WARFARIN NA 5 MG TABLET ONE (21:40)
[2020-11-21] MEDS: CHLORHEXIDINE GLUCONATE 4% CLEANSER FOR DECOLONIZATION TP SCH ×2 (21:41→21:50)
[2020-11-21] MEDS: GABAPENTIN 300 MG CAPSULE PO SCH (21:42)
[2020-11-21] MEDS: ATORVASTATIN CA 40 MG TABLET (FP) PO SCH (21:43)
[2020-11-21] MEDS ORDERED: WARFARIN SODIUM 4 MG PO SCH (22:00)
[2020-11-21] MEDS ORDERED: WARFARIN NA 5 MG, WARFARIN NA 2 MG PO SCH (22:00)
[2020-11-22] MEDS: INSULIN SLIDING SCALE (NOVOLOG) 1 VIAL SQ SCH ×4 (06:02→21:25)
[2020-11-22 07:30] LABS: HEMATOCRIT 42.4 % (32.4-45.2); HEMOGLOBIN 14.6 GM/dL (10.7-15.3); MCH 28.3 pg (25.7-33.7); MCHC 34.4 g/dl (32.0-36.0); MEAN CELL VOLUME 82.1 fl (80-96); MEAN PLT VOLUME 8.9 fl (7.5-11.1); PLATELET COUNT 193 K/MM3 (134-434); RBC 5.17 M/mm3 (3.60-5.2); RDW 14.8 % (11.6-15.6); WHITE BLOOD COUNT 5.5 K/mm3 (4.0-10.0)
[2020-11-22 07:34] LABS: INR 1.75 (0.83-1.09); PROTHROMBIN TIME (PATIENT) 20.8 SEC (9.7-13.0)
[2020-11-22 07:54] LABS: BLOOD UREA NITROGEN 13.1 mg/dL (7-18); CALCIUM 8.4 mg/dL (8.5-10.1); MAGNESIUM 1.8 mg/dL (1.8-2.4)
[2020-11-22 07:57] LABS: CREATININE 0.5 mg/dL (0.55-1.3)
[2020-11-22] MEDS: ACETAMINOPHEN 1000 MG/100 ML VIAL (NON FORMULARY) IVPB PRN (07:57)
[2020-11-22] MEDS ORDERED: PT OWN MED DRAWER 7, Y5N ONE (09:30)
[2020-11-22] MEDS: LEVOTHYROXINE SODIUM 100 MCG VIAL IVPUSH SCH (09:32)
[2020-11-22] MEDS: MUPIROCIN 2% TOPICAL OINTMENT FOR DECOLONIZATION NS SCH ×2 (09:39→21:23)
[2020-11-22] MEDS ORDERED: PATIENT'S OWN MEDICATION (NON-FORMULARY) (Empagliflozin [Jardiance] 10 MG Tablet) PO SCH (10:00)
[2020-11-22] MEDS ORDERED: LISINOPRIL 20 MG TABLET PO SCH (10:00)
[2020-11-22] MEDS ORDERED: HEPARIN NA (PORCINE) 5,000 UNITS/ML 1ML VIAL IVPUSH PRN ×2 (10:16)
[2020-11-22] MEDS ORDERED: HEPARIN SOD,PORK IN 0.45% NACL 25,000 UNITS/500 ML INFUS.BAG IVPB SCH (10:30)
[2020-11-22 10:31] LABS: ACTIVATED PTT 41.2 SECONDS (25.2-36.5)
[2020-11-22] MEDS ORDERED: HEPARIN INFUSION - 25,000 UNITS/500 ML INFUS.BAG IVPB SCH (11:15)
[2020-11-22] MEDS: hydrALAZINE HCL 20 MG/ML VIAL IVPUSH PRN (12:17)
[2020-11-22] MEDS ORDERED: amLODIPine BESYLATE 5 MG TABLET (FP) PO SCH (12:45)
[2020-11-22] MEDS ORDERED: amLODIPine BESYLATE 10 MG TABLET (FP) PO SCH (12:51)
[2020-11-22] MEDS ORDERED: hydrALAZINE HCL 20 MG/ML VIAL IVPUSH ONE (12:51)
[2020-11-22] MEDS ORDERED: amLODIPine BESYLATE 10 MG TABLET (FP) PO ONE (14:00)
[2020-11-22 16:30] VITALS: BMI 26.9
[2020-11-22] MEDS ORDERED: WARFARIN NA 5 MG, WARFARIN NA 2 MG PO SCH (18:00)
[2020-11-22] MEDS ORDERED: WARFARIN NA 10 MG TABLET PO ONE (18:00)
[2020-11-22] MEDS: GABAPENTIN 300 MG CAPSULE PO SCH (21:23)
[2020-11-22] MEDS: ATORVASTATIN CA 40 MG TABLET (FP) PO SCH (21:23)
[2020-11-22] MEDS: CHLORHEXIDINE GLUCONATE 4% CLEANSER FOR DECOLONIZATION TP SCH (21:23)
[2020-11-23] MEDS ORDERED: ATROPINE SULFATE 1 MG/10 ML DISP.SYRIN IVPUSH PRN (01:51)
[2020-11-23] MEDS ORDERED: HEPARIN NA (PORCINE) 5,000 UNITS/ML 1ML VIAL IVPUSH PRN ×6 (01:51)
[2020-11-23] MEDS ORDERED: ACETAMINOPHEN 325 MG TABLET (FP) PO PRN (01:56)
[2020-11-23] MEDS: HEPARIN INFUSION - 25,000 UNITS/500 ML INFUS.BAG IVPB SCH ×2 (02:00→19:04)
[2020-11-23] MEDS: INSULIN SLIDING SCALE (NOVOLOG) 1 VIAL SQ SCH ×4 (06:20→21:12)
[2020-11-23] MEDS: LEVOTHYROXINE NA 88 MCG TABLET (FP) PO SCH (06:20)
[2020-11-23] MEDS ORDERED: LEVOTHYROXINE NA 88 MCG TABLET (FP) PO SCH (07:00)
[2020-11-23 09:16] LABS: BASO % 0.9 % (0-2.0); EOS % 4.9 % (0-4.5); HEMATOCRIT 43.6 % (32.4-45.2); HEMOGLOBIN 14.8 GM/dL (10.7-15.3); LYMPH % 24.4 % (8-40); MCH 28.2 pg (25.7-33.7); MCHC 33.9 g/dl (32.0-36.0); MEAN CELL VOLUME 83.3 fl (80-96); MEAN PLT VOLUME 8.9 fl (7.5-11.1); MONO % 6.6 % (3.8-10.2); NEUT % 63.2 % (42.8-82.8); PLATELET COUNT 180 K/MM3 (134-434); RBC 5.24 M/mm3 (3.60-5.2); RDW 15.3 % (11.6-15.6); WHITE BLOOD COUNT 5.6 K/mm3 (4.0-10.0)
[2020-11-23] MEDS ORDERED: PATIENT'S OWN MEDICATION (NON-FORMULARY) (Empagliflozin [Jardiance] 10 MG) PO SCH (10:00)
[2020-11-23] MEDS ORDERED: MUPIROCIN 2% TOPICAL OINTMENT FOR DECOLONIZATION NS SCH (10:00)
[2020-11-23] MEDS: amLODIPine BESYLATE 10 MG TABLET (FP) PO SCH (10:10)
[2020-11-23] MEDS: LISINOPRIL 20 MG TABLET PO SCH (10:10)
[2020-11-23 10:35] LABS: ALBUMIN 3.1 g/dl (3.4-5.0); BILIRUBIN,TOTAL 0.4 mg/dL (0.2-1); BLOOD UREA NITROGEN 11.7 mg/dL (7-18); CALCIUM 8.6 mg/dL (8.5-10.1); CREATININE 0.6 mg/dL (0.55-1.3); MAGNESIUM 1.8 mg/dL (1.8-2.4); PHOSPHOROUS 2.7 mg/dL (2.5-4.9); TOT PROT 6.5 g/dl (6.4-8.2)
[2020-11-23 11:03] LABS: INR 2.52 (0.83-1.09); PROTHROMBIN TIME (PATIENT) 29.7 SEC (9.7-13.0)
[2020-11-23 11:05] LABS: ACTIVATED PTT 97.7 SECONDS (25.2-36.5)
[2020-11-23] MEDS ORDERED: WARFARIN NA 5 MG, WARFARIN NA 2 MG PO SCH ×2 (18:00)
[2020-11-23 22:00] LABS: INR 2.44 (0.83-1.09); PROTHROMBIN TIME (PATIENT) 28.8 SEC (9.7-13.0)
[2020-11-23] MEDS ORDERED: ATORVASTATIN CA 40 MG TABLET (FP) PO SCH (22:00)
[2020-11-23] MEDS ORDERED: CHLORHEXIDINE GLUCONATE 4% CLEANSER FOR DECOLONIZATION TP SCH (22:00)
[2020-11-23] MEDS ORDERED: GABAPENTIN 300 MG CAPSULE PO SCH (22:00)
[2020-11-23 22:03] LABS: ACTIVATED PTT 76.8 SECONDS (25.2-36.5)
[2020-11-24] MEDS: LEVOTHYROXINE NA 88 MCG TABLET (FP) PO SCH (06:14)
[2020-11-24] MEDS: INSULIN SLIDING SCALE (NOVOLOG) 1 VIAL SQ SCH ×2 (06:14→11:43)
[2020-11-24 08:29] LABS: BASO % 1.1 % (0-2.0); EOS % 4.5 % (0-4.5); HEMATOCRIT 43.9 % (32.4-45.2); HEMOGLOBIN 14.5 GM/dL (10.7-15.3); LYMPH % 32.1 % (8-40); MCH 27.8 pg (25.7-33.7); MEAN CELL VOLUME 84.2 fl (80-96); MEAN PLT VOLUME 9.2 fl (7.5-11.1); MONO % 8.2 % (3.8-10.2); NEUT % 54.1 % (42.8-82.8); PLATELET COUNT 162 K/MM3 (134-434); RBC 5.21 M/mm3 (3.60-5.2); RDW 15.5 % (11.6-15.6); WHITE BLOOD COUNT 4.9 K/mm3 (4.0-10.0)
[2020-11-24 08:39] LABS: INR 2.87 (0.83-1.09); PROTHROMBIN TIME (PATIENT) 34.2 SEC (9.7-13.0)
[2020-11-24 08:41] LABS: ACTIVATED PTT 79.9 SECONDS (25.2-36.5)
[2020-11-24 08:52] LABS: ALBUMIN 3.2 g/dl (3.4-5.0); BLOOD UREA NITROGEN 11.3 mg/dL (7-18)
[2020-11-24 08:57] LABS: BILIRUBIN,TOTAL 0.4 mg/dL (0.2-1); CREATININE 0.4 mg/dL (0.55-1.3); TOT PROT 6.6 g/dl (6.4-8.2)
[2020-11-24] MEDS: amLODIPine BESYLATE 10 MG TABLET (FP) PO SCH (09:03)
[2020-11-24] MEDS: LISINOPRIL 20 MG TABLET PO SCH (09:03)
[2020-11-24 13:38] VITALS: BP 131/59; PULSE 73; TEMP 98.1
== END 2020-11-24 14:26 | disposition home or self-care (01) | DRG 201 ==
LOC: JER 17:08 → JERBED 19:25 → JICU 11-21 11:02 → J6WEST-2 11-22 23:54
PROVIDERS: ADMIT Internal Medicine Pulmonary Disease; ATTEND Student in an Organized Health Care Education/Training Program
DX: I47.1 Supraventricular tachycardia (principal); E11.9 Type 2 diabetes mellitus without complications; I10 Essential (primary) hypertension; G83.31 Monoplegia, unspecified affecting right dominant side; K21.9 Gastro-esophageal reflux disease without esophagitis; R42 Dizziness and giddiness; E78.5 Hyperlipidemia, unspecified; E03.9 Hypothyroidism, unspecified; I49.5 Sick sinus syndrome; T44.7X5A Adverse effect of beta-adrenoreceptor antagonists, initial encounter; Z95.2 Presence of prosthetic heart valve
CPT/HCPCS: 36415; 70450-TC; 71045-TC-FY; 80048; 80053; 80061; 82550; 82553; 82962; 83721; 83735; 84100; 84439; 84443; 84484; 85025; 85027; 85610; 85730; 86850; 86900; 86901; 90732; 93005; 93010; 93306-TC; 93971-TC; 99291; C9803; G0008; G0009; J0131; J1644; Q2036; U0003; U0005

== ENCOUNTER 2020-12-19 23:18 | Observation (INO) | payer OTHER ==
[2020-12-19 23:26] VITALS: BMI 25.0
[2020-12-19] MEDS ORDERED: dilTIAZem HCL 125 MG/25 ML - 25 ML VIAL ONE (23:39)
[2020-12-19 23:40] LABS: BASO % 1.2 % (0-2.0); EOS % 2.5 % (0-4.5); HEMOGLOBIN 15.8 GM/dL (10.7-15.3); LYMPH % 29.6 % (8-40); MCH 28.8 pg (25.7-33.7); MCHC 34.4 g/dl (32.0-36.0); MEAN CELL VOLUME 83.6 fl (80-96); MEAN PLT VOLUME 8.7 fl (7.5-11.1); MONO % 8.4 % (3.8-10.2); NEUT % 58.3 % (42.8-82.8); PLATELET COUNT 221 K/MM3 (134-434); RDW 14.7 % (11.6-15.6)
[2020-12-19] MEDS ORDERED: dilTIAZem HCL 50 MG/10 ML - 10 ML VIAL IVPUSH ONE (23:40)
[2020-12-19 23:46] LABS: INR 2.78 (0.83-1.09); PROTHROMBIN TIME (PATIENT) 32.7 SEC (9.7-13.0)
[2020-12-19 23:49] LABS: ACTIVATED PTT 49.8 SECONDS (25.2-36.5)
[2020-12-19] MEDS ORDERED: dilTIAZem HCL 60 MG TABLET PO ONE ×2 (23:52→23:53)
[2020-12-19] MEDS ORDERED: dilTIAZem HCL 60 MG TABLET ONE (23:53)
[2020-12-19 23:59] LABS: CHLORIDE 107 mmol/L (98-107); SODIUM 137 mmol/L (136-145)
[2020-12-20 00:01] LABS: ALBUMIN 3.7 g/dl (3.4-5.0); BLOOD UREA NITROGEN 26.3 mg/dL (7-18); CALCIUM 8.2 mg/dL (8.5-10.1); CO2 22 mmol/L (21-32); GLUCOSE,RANDOM 149 mg/dL (74-106); MAGNESIUM 1.8 mg/dL (1.8-2.4)
[2020-12-20 00:04] LABS: CREATININE 0.9 mg/dL (0.55-1.3); SGOT/AST 60 U/L (15-37); SGPT/ALT 29 U/L (13-61)
[2020-12-20 00:05] LABS: PHOSPHOROUS 3.7 mg/dL (2.5-4.9)
[2020-12-20 00:06] LABS: BILIRUBIN,TOTAL 0.5 mg/dL (0.2-1); TOT PROT 7.8 g/dl (6.4-8.2)
[2020-12-20 00:07] LABS: ALK PHOS 93 U/L (45-117)
[2020-12-20 00:16] LABS: ANION GAP 8 MMOL/L (8-16)
[2020-12-20] MEDS ORDERED: ATROPINE SULFATE 1 MG/10 ML DISP.SYRIN ONE (02:57)
[2020-12-20 03:18] LABS: CALCIUM 7.5 mg/dL (8.5-10.1)
[2020-12-20 03:19] LABS: BLOOD UREA NITROGEN 23.7 mg/dL (7-18)
[2020-12-20 03:22] LABS: CREATININE 0.7 mg/dL (0.55-1.3)
[2020-12-20 05:42] LABS: EPI CELLS 14 /uL (0-25.1); HYALINE CASTS 1 /uL (0-3.1); URINE APPEARANCE CLEAR; URINE BACTERIA 866 /uL (0-1359); URINE BILIRUBIN NEGATIVE (NEGATIVE); URINE COLOR YELLOW; URINE GLUCOSE (UA) 3+ (NEGATIVE); URINE KETONE NEGATIVE (NEGATIVE); URINE LEUK ESTERASE 1+ (NEGATIVE); URINE NITRITE NEGATIVE (NEGATIVE); URINE PROTEIN NEGATIVE (NEGATIVE); URINE RBC 6 /uL (0-23.9); URINE UROBILINOGEN 0.2 mg/dL (0.2-1.0); URINE WBC 117 /uL (0-25.8)
[2020-12-20 05:48] LABS: HEMATOCRIT 40.1 % (32.4-45.2); HEMOGLOBIN 13.8 GM/dL (10.7-15.3); MCH 28.8 pg (25.7-33.7); MCHC 34.5 g/dl (32.0-36.0); MEAN CELL VOLUME 83.4 fl (80-96); MEAN PLT VOLUME 8.2 fl (7.5-11.1); PLATELET COUNT 189 K/MM3 (134-434); RDW 15.1 % (11.6-15.6); WHITE BLOOD COUNT 6.8 K/mm3 (4.0-10.0)
[2020-12-20 05:53] LABS: INR 2.93 (0.83-1.09); PROTHROMBIN TIME (PATIENT) 34.4 SEC (9.7-13.0)
[2020-12-20 05:55] LABS: ACTIVATED PTT 49.6 SECONDS (25.2-36.5)
[2020-12-20] MEDS ORDERED: dilTIAZem HCL 30 MG TABLET PO SCH (06:00)
[2020-12-20 06:09] LABS: BLOOD UREA NITROGEN 21.6 mg/dL (7-18); CALCIUM 7.7 mg/dL (8.5-10.1); MAGNESIUM 1.8 mg/dL (1.8-2.4)
[2020-12-20 06:10] LABS: ALBUMIN 3.2 g/dl (3.4-5.0)
[2020-12-20 06:12] LABS: CREATININE 0.6 mg/dL (0.55-1.3); PHOSPHOROUS 3.5 mg/dL (2.5-4.9)
[2020-12-20 06:14] LABS: BILIRUBIN,TOTAL 0.4 mg/dL (0.2-1); TOT PROT 6.3 g/dl (6.4-8.2)
[2020-12-20] MEDS ORDERED: MAGNESIUM SULF 50% (8.12 MEQ/2 ML-1 GM VIAL) IVPB ONE (06:25)
[2020-12-20] MEDS ORDERED: MAGNESIUM 1GM/D5W - 1 GM/100 ML IVPB IVPB ONE (06:31)
[2020-12-20] MEDS ORDERED: LEVOTHYROXINE NA 88 MCG TABLET (FP) PO SCH (07:00)
[2020-12-20] MEDS: INSULIN SLIDING SCALE (NOVOLOG) 1 VIAL SQ SCH ×2 (07:39→12:25)
[2020-12-20] MEDS ORDERED: LISINOPRIL 20 MG TABLET PO SCH (10:00)
[2020-12-20] MEDS ORDERED: CHOLESTYRAMINE/SUCROSE 4 GM PACKET PO SCH (10:00)
[2020-12-20 12:27] VITALS: BP 121/63; PULSE 61; TEMP 98
[2020-12-20] MEDS ORDERED: LISINOPRIL 20 MG TABLET ONE (12:28)
[2020-12-20] MEDS ORDERED: WARFARIN NA 5 MG, WARFARIN NA 2 MG PO SCH (18:00)
[2020-12-20] MEDS ORDERED: GABAPENTIN 300 MG CAPSULE PO SCH (22:00)
[2020-12-20] MEDS ORDERED: WARFARIN SODIUM 4 MG PO SCH (22:00)
[2020-12-20] MEDS ORDERED: ATORVASTATIN CA 40 MG TABLET (FP) PO SCH (22:00)
== END 2020-12-20 15:40 | disposition home or self-care (01) ==
LOC: SUPCPDRO 23:18 → JER 23:18 → UNDOADMOB 12-20 00:48 → INTOOBSV 12-20 00:48 → JERBED 12-20 00:48
PROVIDERS: ADMIT Internal Medicine; ATTEND Nurse Practitioner Acute Care
PROC: 3E033GC Introduction of Other Therapeutic Substance into Peripheral Vein, Percutaneous Approach (ICD-10-PCS; principal; 2020-12-20)
PROC: 3E033GC Introduction of Other Therapeutic Substance into Peripheral Vein, Percutaneous Approach (ICD-10-PCS; 2020-12-20)
PROC: 3E033GC Introduction of Other Therapeutic Substance into Peripheral Vein, Percutaneous Approach (ICD-10-PCS; 2020-12-20)
DX: I10 Essential (primary) hypertension (principal); E78.5 Hyperlipidemia, unspecified; R79.89 Other specified abnormal findings of blood chemistry; E11.9 Type 2 diabetes mellitus without complications; Z95.2 Presence of prosthetic heart valve; I63.9 Cerebral infarction, unspecified; E03.9 Hypothyroidism, unspecified; Z86.16 Personal history of COVID-19; R00.0 Tachycardia, unspecified; R00.2 Palpitations; E87.5 Hyperkalemia; R19.7 Diarrhea, unspecified; Z29.9 Encounter for prophylactic measures, unspecified; Z86.73 Personal history of transient ischemic attack (TIA), and cerebral infarction without residual deficits; F41.9 Anxiety disorder, unspecified; R74.8 Abnormal levels of other serum enzymes
CPT/HCPCS: 36415; 71045-TC-FY; 80048; 80053; 81003; 82550; 82553; 82962; 83036; 83735; 84100; 84439; 84443; 84484; 85025; 85027; 85610; 85730; 87077; 87086; 93005; 93010; 96374; 96375; 99285-25; C9803; G0378; U0003; U0005

== ENCOUNTER 2020-12-31 18:54 | Observation (INO) | payer OTHER ==
[2020-12-31 20:18] LABS: BASO % 1.1 % (0-2.0); EOS % 4.3 % (0-4.5); HEMATOCRIT 45.1 % (32.4-45.2); HEMOGLOBIN 14.7 GM/dL (10.7-15.3); LYMPH % 30.6 % (8-40); MCH 27.6 pg (25.7-33.7); MCHC 32.7 g/dl (32.0-36.0); MEAN CELL VOLUME 84.5 fl (80-96); MEAN PLT VOLUME 8.7 fl (7.5-11.1); MONO % 6.8 % (3.8-10.2); NEUT % 57.2 % (42.8-82.8); PLATELET COUNT 253 K/MM3 (134-434); RBC 5.33 M/mm3 (3.60-5.2)
[2020-12-31 20:35] LABS: ALBUMIN 3.6 g/dl (3.4-5.0); CALCIUM 8.8 mg/dL (8.5-10.1)
[2020-12-31 20:36] LABS: BLOOD UREA NITROGEN 14.1 mg/dL (7-18)
[2020-12-31 20:38] LABS: INR 2.85 (0.83-1.09); PROTHROMBIN TIME (PATIENT) 33.4 SEC (9.7-13.0)
[2020-12-31 20:39] LABS: CREATININE 0.7 mg/dL (0.55-1.3)
[2020-12-31 20:40] LABS: BILIRUBIN,TOTAL 0.4 mg/dL (0.2-1); TOT PROT 7.7 g/dl (6.4-8.2)
[2020-12-31 20:41] LABS: ACTIVATED PTT 53.4 SECONDS (25.2-36.5)
[2021-01-01 04:06] VITALS: TEMP 97.8; BMI 25.0
[2021-01-01] MEDS ORDERED: dilTIAZem HCL 30 MG TABLET PO SCH (06:00)
[2021-01-01] MEDS ORDERED: LEVOTHYROXINE NA 88 MCG TABLET (FP) PO SCH (07:00)
[2021-01-01] MEDS: INSULIN SLIDING SCALE (NOVOLOG) 1 VIAL SQ SCH ×2 (07:18→12:21)
[2021-01-01 08:02] LABS: EOS % 5.4 % (0-4.5); HEMATOCRIT 42.4 % (32.4-45.2); HEMOGLOBIN 14.2 GM/dL (10.7-15.3); LYMPH % 28.4 % (8-40); MCH 28.1 pg (25.7-33.7); MCHC 33.4 g/dl (32.0-36.0); MEAN CELL VOLUME 84.1 fl (80-96); MEAN PLT VOLUME 8.5 fl (7.5-11.1); MONO % 7.6 % (3.8-10.2); NEUT % 57.6 % (42.8-82.8); PLATELET COUNT 210 K/MM3 (134-434); RBC 5.04 M/mm3 (3.60-5.2); RDW 14.9 % (11.6-15.6); WHITE BLOOD COUNT 6.4 K/mm3 (4.0-10.0)
[2021-01-01 08:21] LABS: CALCIUM 8.2 mg/dL (8.5-10.1)
[2021-01-01 08:22] LABS: ALBUMIN 3.2 g/dl (3.4-5.0); BLOOD UREA NITROGEN 13.1 mg/dL (7-18); MAGNESIUM 1.9 mg/dL (1.8-2.4)
[2021-01-01 08:25] LABS: CREATININE 0.4 mg/dL (0.55-1.3); PHOSPHOROUS 3.5 mg/dL (2.5-4.9)
[2021-01-01 08:26] LABS: BILIRUBIN,TOTAL 0.4 mg/dL (0.2-1); TOT PROT 6.4 g/dl (6.4-8.2)
[2021-01-01] MEDS ORDERED: POTASSIUM CHLORIDE TABS 20 MEQ TABLET.ER (FP) PO ONE (08:29)
[2021-01-01] MEDS ORDERED: MAGNESIUM OXIDE 400 MG TABLET (FP) PO ONE (08:29)
[2021-01-01 13:55] VITALS: BP 112/65; PULSE 42
[2021-01-01] MEDS ORDERED: WARFARIN NA 5 MG, WARFARIN NA 2 MG PO SCH (18:00)
[2021-01-01] MEDS ORDERED: GABAPENTIN 300 MG CAPSULE PO SCH (22:00)
[2021-01-01] MEDS ORDERED: ATORVASTATIN CA 40 MG TABLET (FP) PO SCH (22:00)
[2021-01-01] MEDS ORDERED: WARFARIN SODIUM 4 MG PO SCH (22:00)
== END 2021-01-01 14:36 | disposition home or self-care (01) ==
LOC: JER 18:54 → UNDOADMOB 20:42 → JERBED 20:42 → INTOOBSV 20:42 → JERBED 01-01 03:19 → J4W 01-01 03:19
PROVIDERS: ADMIT Internal Medicine; ATTEND Nurse Practitioner Acute Care
DX: I47.1 Supraventricular tachycardia (principal); R00.2 Palpitations; I63.9 Cerebral infarction, unspecified; I49.5 Sick sinus syndrome; I10 Essential (primary) hypertension; Z95.2 Presence of prosthetic heart valve; R74.8 Abnormal levels of other serum enzymes; E03.9 Hypothyroidism, unspecified; E11.9 Type 2 diabetes mellitus without complications; E78.5 Hyperlipidemia, unspecified; G25.81 Restless legs syndrome; I09.1 Rheumatic diseases of endocardium, valve unspecified; Z79.01 Long term (current) use of anticoagulants; Z86.73 Personal history of transient ischemic attack (TIA), and cerebral infarction without residual deficits; R79.89 Other specified abnormal findings of blood chemistry
CPT/HCPCS: 36415; 71046-TC-FY; 80053; 82962; 83735; 84100; 84443; 84484; 85025; 85610; 85730; 93005; 93010; 99285-25; C9803; G0378; U0003; U0005

== ENCOUNTER 2021-01-06 13:02 | Observation (INO) | payer OTHER ==
[2021-01-06 13:10] VITALS: BMI 25.0
[2021-01-06 15:04] LABS: BASO % 0.8 % (0-2.0); EOS % 3.7 % (0-4.5); HEMATOCRIT 49.7 % (32.4-45.2); HEMOGLOBIN 16.5 GM/dL (10.7-15.3); MCH 28.2 pg (25.7-33.7); MCHC 33.1 g/dl (32.0-36.0); MEAN CELL VOLUME 85.1 fl (80-96); MEAN PLT VOLUME 8.8 fl (7.5-11.1); MONO % 4.8 % (3.8-10.2); NEUT % 65.7 % (42.8-82.8); PLATELET COUNT 294 K/MM3 (134-434); RBC 5.83 M/mm3 (3.60-5.2); RDW 14.7 % (11.6-15.6); WHITE BLOOD COUNT 7.9 K/mm3 (4.0-10.0)
[2021-01-06 15:10] LABS: INR 2.28 (0.83-1.09); PROTHROMBIN TIME (PATIENT) 26.9 SEC (9.7-13.0)
[2021-01-06 15:12] LABS: ACTIVATED PTT 50.7 SECONDS (25.2-36.5)
[2021-01-06 15:24] LABS: CHLORIDE 102 mmol/L (98-107); SODIUM 137 mmol/L (136-145)
[2021-01-06 15:27] LABS: ANION GAP 11 MMOL/L (8-16); BLOOD UREA NITROGEN 15.6 mg/dL (7-18); CO2 25 mmol/L (21-32); GLUCOSE,RANDOM 138 mg/dL (74-106)
[2021-01-06 15:30] LABS: CREATININE 0.7 mg/dL (0.55-1.3); SGOT/AST 23 U/L (15-37); SGPT/ALT 32 U/L (13-61)
[2021-01-06 15:31] LABS: BILIRUBIN,TOTAL 0.5 mg/dL (0.2-1)
[2021-01-06 15:37] LABS: ALBUMIN 4.3 g/dl (3.4-5.0); ALK PHOS 118 U/L (45-117); CALCIUM 9.9 mg/dL (8.5-10.1); TOT PROT 8.9 g/dl (6.4-8.2)
[2021-01-06] MEDS ORDERED: GABAPENTIN 300 MG CAPSULE PO SCH (22:00)
[2021-01-06] MEDS ORDERED: ATORVASTATIN CA 40 MG TABLET (FP) PO SCH (22:00)
[2021-01-06] MEDS ORDERED: INSULIN SLIDING SCALE (NOVOLOG) 1 VIAL SQ SCH (22:00)
[2021-01-06 23:36] VITALS: BP 136/75; PULSE 76; TEMP 98
[2021-01-07] MEDS ORDERED: LEVOTHYROXINE NA 88 MCG TABLET (FP) PO SCH (07:00)
== END 2021-01-06 23:40 | disposition short-term general hospital (02) ==
LOC: JER 13:02 → JERBED 13:44 → J4W 20:42
PROC: 3E013VG Introduction of Insulin into Subcutaneous Tissue, Percutaneous Approach (ICD-10-PCS; principal; 2021-01-06)
DX: I47.1 Supraventricular tachycardia (principal); I49.5 Sick sinus syndrome; R00.2 Palpitations; I00 Rheumatic fever without heart involvement; R42 Dizziness and giddiness; E11.9 Type 2 diabetes mellitus without complications; I09.1 Rheumatic diseases of endocardium, valve unspecified; Z95.2 Presence of prosthetic heart valve; Z86.73 Personal history of transient ischemic attack (TIA), and cerebral infarction without residual deficits; M62.81 Muscle weakness (generalized); Z98.890 Other specified postprocedural states; Z86.16 Personal history of COVID-19; E03.9 Hypothyroidism, unspecified; Z79.01 Long term (current) use of anticoagulants; G25.81 Restless legs syndrome
CPT/HCPCS: 36415; 71045-TC-FY; 80053; 82550; 82962; 84484; 85025; 85610; 85730; 93005; 93010; 99285-25; C9803; G0378; U0003; U0005

== ENCOUNTER 2021-03-09 10:47 | Emergency (ER) | payer OTHER ==
[2021-03-09 10:57] VITALS: BP 161/65; PULSE 59; TEMP 97.9; BMI 26.5
[2021-03-09] MEDS ORDERED: ACETAMINOPHEN 1000 MG/100 ML VIAL (NON FORMULARY) IVPB ONE (11:32)
[2021-03-09] MEDS ORDERED: SODIUM CHLORIDE 0.9% 500 ML INFUS.BAG IV ONE (11:33)
[2021-03-09] MEDS ORDERED: METOCLOPRAMIDE HCL INJECTION 10 MG/2 ML VIAL IVPUSH ONE (11:33)
[2021-03-09] MEDS ORDERED: ACETAMINOPHEN INJECTION 100 ML IVPB ONE (11:44)
[2021-03-09] MEDS ORDERED: METOCLOPRAMIDE HCL INJECTION 10 MG/2 ML VIAL ONE (11:44)
[2021-03-09 12:06] LABS: BASO % 0.8 % (0-2.0); EOS % 1.6 % (0-4.5); HEMATOCRIT 45.4 % (32.4-45.2); HEMOGLOBIN 15.2 GM/dL (10.7-15.3); LYMPH % 18.5 % (8-40); MCH 27.9 pg (25.7-33.7); MCHC 33.4 g/dl (32.0-36.0); MEAN CELL VOLUME 83.4 fl (80-96); MEAN PLT VOLUME 8.3 fl (7.5-11.1); MONO % 5.5 % (3.8-10.2); NEUT % 73.6 % (42.8-82.8); PLATELET COUNT 250 10^3/uL (134-434); RBC 5.45 M/mm3 (3.60-5.2); RDW 14.8 % (11.6-15.6); WHITE BLOOD COUNT 7.5 K/mm3 (4.0-10.0)
[2021-03-09 12:14] LABS: PROTHROMBIN TIME (PATIENT) 47.6 SEC (9.7-13.0)
[2021-03-09 12:17] LABS: ACTIVATED PTT 55.4 SECONDS (25.2-36.5)
[2021-03-09 12:28] LABS: ALBUMIN 3.8 g/dl (3.4-5.0); CALCIUM 9.4 mg/dL (8.5-10.1)
[2021-03-09 12:29] LABS: BLOOD UREA NITROGEN 14.2 mg/dL (7-18)
[2021-03-09 12:32] LABS: CREATININE 0.8 mg/dL (0.55-1.3)
[2021-03-09 12:33] LABS: BILIRUBIN,TOTAL 0.5 mg/dL (0.2-1); TOT PROT 7.8 g/dl (6.4-8.2)
[2021-03-09 12:42] LABS: INR 4.03 (0.83-1.09)
[2021-03-10 13:09] LABS: SARS-CoV-2 NAA Not Detected (Not Detected)
== END 2021-03-09 14:21 | disposition home or self-care (01) ==
LOC: JER 10:47
PROC: 3E0333Z Introduction of Anti-inflammatory into Peripheral Vein, Percutaneous Approach (ICD-10-PCS; principal; 2021-03-09)
PROC: 3E033GC Introduction of Other Therapeutic Substance into Peripheral Vein, Percutaneous Approach (ICD-10-PCS; 2021-03-09)
DX: G44.89 Other headache syndrome (principal)
CPT/HCPCS: 36415; 70450-TC; 80053; 85025; 85610; 85730; 99284-25; C9803; J0131; U0003; U0005

== ENCOUNTER 2021-12-16 14:13 | Emergency (ER) | payer OTHER ==
[2021-12-16 14:24] VITALS: BMI 25.7
[2021-12-16] MEDS ORDERED: guaiFENesin/CODEINE 10 ML UNIT-DOSE CUPS PO ONE (15:34)
[2021-12-16] MEDS ORDERED: guaiFENesin/CODEINE 5 ML UNIT-DOSE CUPS PO ONE ×2 (16:00)
[2021-12-16 17:09] VITALS: BP 168/86; PULSE 89; TEMP 98.9
== END 2021-12-16 17:09 | disposition home or self-care (01) ==
LOC: JER 14:13
DX: J09.X2 Influenza due to identified novel influenza A virus with other respiratory manifestations (principal); J06.9 Acute upper respiratory infection, unspecified
CPT/HCPCS: 0241U-QW; 71046-TC-FY; 87807; 99284-25; C9803-CS; U0003; U0005

== ENCOUNTER 2022-05-23 13:10 | Emergency (ER) | payer OTHER ==
[2022-05-23 13:43] VITALS: BP 196/98; PULSE 59; RESP 20; TEMP 97.4; BMI 27.4
[2022-05-23] MEDS ORDERED: ACETAMINOPHEN 325 MG TABLET (FP) PO ONE (14:41)
[2022-05-23] MEDS ORDERED: ACETAMINOPHEN 325 MG TABLET (FP) ONE (14:43)
== END 2022-05-23 17:27 | disposition home or self-care (01) ==
LOC: JERFT 13:10
DX: M79.642 Pain in left hand (principal)
CPT/HCPCS: 73110-TC-LT-FY; 73130-TC-LT-FY; 99283-25

== ENCOUNTER 2022-09-25 04:12 | Day surgery (SDC) | payer OTHER ==
[2022-09-22 10:58] VITALS: BMI 27.8
[2022-09-25] MEDS ORDERED: LIDOCAINE HCL 1%, 10 MG/ML (20ML VIAL) ONE (07:17)
[2022-09-25] MEDS ORDERED: BUPIVACAINE HCL/PF 0.5% (5MG/ML) 10 ML VIAL ONE (07:17)
[2022-09-25 07:33] VITALS: RESP 18
[2022-09-25] MEDS ORDERED: LIDOCAINE HCL 1%, 10 MG/ML (20ML VIAL) NR ONE ×3 (07:44→09:14)
[2022-09-25] MEDS ORDERED: BUPIVACAINE HCL/PF 0.5% (5MG/ML) 10 ML VIAL IJ ONE ×3 (07:45→09:14)
[2022-09-25] MEDS ORDERED: ceFAZolin SODIUM 1 GM VIAL IVPB ONE ×2 (07:46→09:04)
[2022-09-25 08:31] LABS: INR 0.94 (0.83-1.09); PROTHROMBIN TIME (PATIENT) 10.9 SEC (9.7-13.0)
[2022-09-25] MEDS ORDERED: LIDOCAINE HCL/PF 2% SDV 5ML VIAL ONE (08:41)
[2022-09-25] MEDS ORDERED: PROPOFOL 60 ML ONE (08:42)
[2022-09-25] MEDS ORDERED: MIDAZOLAM HCL 2 MG/2 ML SINGLE DOSE VIAL ONE (08:42)
[2022-09-25] MEDS ORDERED: ceFAZolin SODIUM 1 GM VIAL ONE (09:03)
[2022-09-25] MEDS ORDERED: DEXAMETHASONE SOD PHOSPHATE 4 MG/1 ML VIAL ONE (09:17)
[2022-09-25] MEDS ORDERED: ONDANSETRON 4 MG/2 ML VIAL ONE (09:17)
[2022-09-25] MEDS ORDERED: ACETAMINOPHEN 1000 MG/100 ML BAG IVPB ONE (12:28)
[2022-09-25] MEDS ORDERED: oxyCODONE HCL 10 MG SUSTAINED ACTING TABLET PO ONE (12:29)
[2022-09-25] MEDS ORDERED: ACETAMINOPHEN INJECTION 100 ML IVPB ONE (12:30)
[2022-09-25] MEDS ORDERED: oxyCODONE HCL 5 MG TABLET ONE (12:31)
[2022-09-25] MEDS ORDERED: oxyCODONE HCL 10 MG SUSTAINED ACTING TABLET ONE (12:34)
[2022-09-25 13:48] VITALS: BP 190/58
[2022-09-25 14:08] VITALS: PULSE 58; TEMP 98
== END 2022-09-25 14:29 | disposition home or self-care (01) ==
LOC: JASU-SURG 04:12
PROVIDERS: ATTEND Orthopaedic Surgery
PROC: 01N50ZZ Release Median Nerve, Open Approach (ICD-10-PCS; principal; 2022-09-25 09:00)
DX: G56.02 Carpal tunnel syndrome, left upper limb (principal)
CPT/HCPCS: 36415; 82962; 85610; 88304-TC

== ENCOUNTER 2022-09-25 14:16 | Observation (INO) | payer OTHER ==
[2022-09-25 15:17] VITALS: BMI 27.8
[2022-09-25 17:14] LABS: HEMATOCRIT 40.4 % (32.4-45.2); HEMOGLOBIN 13.4 GM/dL (10.7-15.3); MCH 27.6 pg (25.7-33.7); MCHC 33.3 g/dl (32.0-36.0); MEAN PLT VOLUME 8.2 fl (7.5-11.1); PLATELET COUNT 209 10^3/uL (134-434); RBC 4.86 M/mm3 (3.60-5.2); RDW 15.2 % (11.6-15.6); WHITE BLOOD COUNT 6.1 K/mm3 (4.0-10.0)
[2022-09-25 17:23] LABS: PROTHROMBIN TIME (PATIENT) 11.6 SEC (9.7-13.0)
[2022-09-25 17:26] LABS: ACTIVATED PTT 34.2 SECONDS (25.2-36.5)
[2022-09-25 17:43] LABS: ALBUMIN 3.4 g/dl (3.4-5.0); CALCIUM 8.7 mg/dL (8.5-10.1)
[2022-09-25 17:46] LABS: BLOOD UREA NITROGEN 12.8 mg/dL (7-18)
[2022-09-25 17:48] LABS: CREATININE 0.8 mg/dL (0.55-1.3)
[2022-09-25 17:50] LABS: BILIRUBIN,TOTAL 0.9 mg/dL (0.2-1)
[2022-09-25 20:29] LABS: ANISOCYTOSIS 0; HELMET CELLS 0; HOWELL-JOLLY BODIES 0; MACROCYTOSIS 0; OVALOCYTE 0; ROULEAU 0; SICKELED CELLS 0; TARGET CELLS 0; TEAR DROP CELLS 0; TOXIC GRANULATION 0
[2022-09-25] MEDS ORDERED: ACETAMINOPHEN 1000 MG/100 ML BAG IVPB ONE (21:48)
[2022-09-26] MEDS ORDERED: LISINOPRIL 20 MG TABLET PO ONE ×2 (00:54→17:09)
[2022-09-26 01:00] LABS: MAGNESIUM 1.9 mg/dL (1.8-2.4)
[2022-09-26 01:03] LABS: PHOSPHOROUS 3.3 mg/dL (2.5-4.9)
[2022-09-26] MEDS ORDERED: hydrALAZINE HCL 20 MG/ML VIAL IVPUSH ONE ×2 (01:36→18:37)
[2022-09-26] MEDS ORDERED: hydrALAZINE HCL 20 MG/ML VIAL IM ONE (01:36)
[2022-09-26] MEDS ORDERED: HEPARIN NA (PORCINE) 5,000 UNITS/ML 1ML VIAL IVPUSH ONE (03:21)
[2022-09-26] MEDS ORDERED: HEPARIN NA (PORCINE) 5,000 UNITS/ML 1ML VIAL IVPUSH PRN ×2 (03:21)
[2022-09-26] MEDS ORDERED: HEPARIN NA (PORCINE) 5,000 UNITS/ML 1ML VIAL ONE ×2 (03:45→11:46)
[2022-09-26] MEDS ORDERED: HEPARIN INFUSION - 25,000 UNITS/500 ML INFUS.BAG IVPB ONE (03:45)
[2022-09-26] MEDS ORDERED: GABAPENTIN 300 MG CAPSULE PO SCH ×2 (03:57→22:00)
[2022-09-26] MEDS: HEPARIN - 25,000 UNIT in SODIUM CHLORIDE 495 ML IV SCH (03:57)
[2022-09-26 04:03] LABS: PH,URINE 6.5 (5.0-8.0); URINE APPEARANCE CLEAR; URINE BILIRUBIN NEGATIVE (NEGATIVE); URINE COLOR YELLOW; URINE GLUCOSE (UA) 3+ (NEGATIVE); URINE KETONE NEGATIVE (NEGATIVE); URINE LEUK ESTERASE NEGATIVE (NEGATIVE); URINE NITRITE NEGATIVE (NEGATIVE); URINE PROTEIN NEGATIVE (NEGATIVE); URINE UROBILINOGEN 0.2 mg/dL (0.2-1.0)
[2022-09-26] MEDS ORDERED: WARFARIN NA 5 MG TABLET PO ONE (04:30)
[2022-09-26] MEDS ORDERED: GABAPENTIN 300 MG CAPSULE PO ONE (04:40)
[2022-09-26] MEDS ORDERED: WARFARIN NA 1 MG TABLET ONE (04:41)
[2022-09-26 04:54] LABS: HEMATOCRIT 39.8 % (32.4-45.2); HEMOGLOBIN 13.3 GM/dL (10.7-15.3); MCH 27.5 pg (25.7-33.7); MCHC 33.3 g/dl (32.0-36.0); MEAN CELL VOLUME 82.6 fl (80-96); MEAN PLT VOLUME 8.4 fl (7.5-11.1); PLATELET COUNT 214 10^3/uL (134-434); RBC 4.82 M/mm3 (3.60-5.2); RDW 15.3 % (11.6-15.6); WHITE BLOOD COUNT 11.3 K/mm3 (4.0-10.0)
[2022-09-26] MEDS ORDERED: oxyCODONE HCL 5 MG TABLET ONE ×2 (06:06→11:45)
[2022-09-26] MEDS: oxyCODONE HCL 5 MG TABLET PO PRN ×3 (06:09→21:35)
[2022-09-26 06:33] LABS: BASO % 0.3 % (0-2.0); EOS % 0.1 % (0-4.5); HEMOGLOBIN 13.3 GM/dL (10.7-15.3); LYMPH % 9.5 % (8-40); MCH 27.1 pg (25.7-33.7); MCHC 33.1 g/dl (32.0-36.0); MEAN CELL VOLUME 81.9 fl (80-96); MEAN PLT VOLUME 8.9 fl (7.5-11.1); MONO % 6.3 % (3.8-10.2); NEUT % 83.8 % (42.8-82.8); PLATELET COUNT 224 10^3/uL (134-434); RBC 4.89 M/mm3 (3.60-5.2); RDW 15.7 % (11.6-15.6); WHITE BLOOD COUNT 12.3 K/mm3 (4.0-10.0)
[2022-09-26 06:39] LABS: INR 1.05 (0.83-1.09); PROTHROMBIN TIME (PATIENT) 12.2 SEC (9.7-13.0)
[2022-09-26 06:52] LABS: ALBUMIN 3.5 g/dl (3.4-5.0); BLOOD UREA NITROGEN 17.5 mg/dL (7-18); CALCIUM 8.8 mg/dL (8.5-10.1); MAGNESIUM 1.8 mg/dL (1.8-2.4)
[2022-09-26 06:55] LABS: CREATININE 0.7 mg/dL (0.55-1.3); PHOSPHOROUS 3.2 mg/dL (2.5-4.9)
[2022-09-26 06:57] LABS: BILIRUBIN,TOTAL 0.5 mg/dL (0.2-1)
[2022-09-26] MEDS ORDERED: GABAPENTIN 100 MG CAPSULE ONE (08:51)
[2022-09-26] MEDS ORDERED: AMIODARONE HCL 200 MG TABLET ONE (09:00)
[2022-09-26] MEDS: CHOLESTYRAMINE/SUCROSE 4 GM PACKET PO SCH ×2 (09:49→23:00)
[2022-09-26] MEDS: AMIODARONE HCL 200 MG TABLET PO SCH (09:49)
[2022-09-26] MEDS: GABAPENTIN 100 MG CAPSULE PO SCH ×2 (09:49→21:36)
[2022-09-26] MEDS: LEVOTHYROXINE NA 88 MCG TABLET (FP) PO SCH (15:23)
[2022-09-26] MEDS: ACETAMINOPHEN 325 MG TABLET (FP) PO PRN (20:19)
[2022-09-26] MEDS: ATORVASTATIN CA 40 MG TABLET (FP) PO SCH (21:42)
[2022-09-26] MEDS: INSULIN SLIDING SCALE (NOVOLOG) 1 VIAL SQ SCH (21:49)
[2022-09-27] MEDS: oxyCODONE HCL 5 MG TABLET PO PRN ×4 (03:19→21:31)
[2022-09-27] MEDS: ACETAMINOPHEN 325 MG TABLET (FP) PO PRN ×2 (03:20→09:22)
[2022-09-27 05:00] LABS: INR 1.05 (0.83-1.09); PROTHROMBIN TIME (PATIENT) 12.2 SEC (9.7-13.0)
[2022-09-27 05:03] LABS: ACTIVATED PTT 52.4 SECONDS (25.2-36.5)
[2022-09-27] MEDS: LEVOTHYROXINE NA 88 MCG TABLET (FP) PO SCH (06:31)
[2022-09-27] MEDS: INSULIN SLIDING SCALE (NOVOLOG) 1 VIAL SQ SCH ×4 (06:31→21:43)
[2022-09-27 07:43] LABS: INR 1.11 (0.83-1.09); PROTHROMBIN TIME (PATIENT) 12.9 SEC (9.7-13.0)
[2022-09-27] MEDS: AMIODARONE HCL 200 MG TABLET PO SCH (09:21)
[2022-09-27] MEDS: CHOLESTYRAMINE/SUCROSE 4 GM PACKET PO SCH ×2 (09:21→21:35)
[2022-09-27] MEDS: LISINOPRIL 20 MG TABLET PO SCH (09:21)
[2022-09-27] MEDS: GABAPENTIN 100 MG CAPSULE PO SCH ×2 (09:21→21:31)
[2022-09-27] MEDS: HEPARIN - 25,000 UNIT in SODIUM CHLORIDE 495 ML IV SCH (09:27)
[2022-09-27] MEDS: ENOXAPARIN NA (PORCINE) 80 MG/0.8 ML DISP.SYRIN SQ SCH ×2 (10:45→21:34)
[2022-09-27] MEDS: HYDROCHLOROTHIAZIDE 25 MG TABLET (FP) PO SCH (10:45)
[2022-09-27 10:55] LABS: BASO % 0.8 % (0-2.0); EOS % 1.7 % (0-4.5); HEMOGLOBIN 12.5 GM/dL (10.7-15.3); LYMPH % 26.5 % (8-40); MCH 27.4 pg (25.7-33.7); MCHC 32.9 g/dl (32.0-36.0); MEAN CELL VOLUME 83.2 fl (80-96); MEAN PLT VOLUME 9.6 fl (7.5-11.1); MONO % 7.4 % (3.8-10.2); NEUT % 63.6 % (42.8-82.8); PLATELET COUNT 199 10^3/uL (134-434); RBC 4.56 M/mm3 (3.60-5.2); RDW 15.8 % (11.6-15.6); WHITE BLOOD COUNT 7.6 K/mm3 (4.0-10.0)
[2022-09-27 11:01] LABS: ALBUMIN 3.2 g/dl (3.4-5.0); BLOOD UREA NITROGEN 16.8 mg/dL (7-18); CALCIUM 8.4 mg/dL (8.5-10.1)
[2022-09-27 11:05] LABS: BILIRUBIN,TOTAL 0.4 mg/dL (0.2-1); CREATININE 0.5 mg/dL (0.55-1.3); PHOSPHOROUS 2.8 mg/dL (2.5-4.9); TOT PROT 6.3 g/dl (6.4-8.2)
[2022-09-27] MEDS: WARFARIN NA 3 MG TABLET PO SCH (17:18)
[2022-09-27] MEDS: ATORVASTATIN CA 40 MG TABLET (FP) PO SCH (21:31)
[2022-09-27] MEDS: GABAPENTIN 300 MG CAPSULE PO SCH (21:31)
[2022-09-27] MEDS ORDERED: INSULIN (LEVEMIR) 100 UNITS/ML UNITS SQ SCH (22:00)
[2022-09-28] MEDS: ACETAMINOPHEN 325 MG TABLET (FP) PO PRN ×3 (02:28→21:14)
[2022-09-28] MEDS: LEVOTHYROXINE NA 88 MCG TABLET (FP) PO SCH (06:07)
[2022-09-28] MEDS: oxyCODONE HCL 5 MG TABLET PO PRN ×3 (06:07→23:39)
[2022-09-28] MEDS: INSULIN SLIDING SCALE (NOVOLOG) 1 VIAL SQ SCH ×4 (06:17→22:47)
[2022-09-28 08:28] LABS: INR 1.16 (0.83-1.09); PROTHROMBIN TIME (PATIENT) 13.4 SEC (9.7-13.0)
[2022-09-28 08:31] LABS: HEMATOCRIT 38.5 % (32.4-45.2); HEMOGLOBIN 12.9 GM/dL (10.7-15.3); MCH 27.4 pg (25.7-33.7); MCHC 33.6 g/dl (32.0-36.0); MEAN CELL VOLUME 81.8 fl (80-96); MEAN PLT VOLUME 8.8 fl (7.5-11.1); PLATELET COUNT 196 10^3/uL (134-434); RBC 4.71 M/mm3 (3.60-5.2); RDW 15.4 % (11.6-15.6); WHITE BLOOD COUNT 7.4 K/mm3 (4.0-10.0)
[2022-09-28 08:49] LABS: ALBUMIN 3.2 g/dl (3.4-5.0); BLOOD UREA NITROGEN 17.3 mg/dL (7-18); CALCIUM 8.8 mg/dL (8.5-10.1); MAGNESIUM 1.8 mg/dL (1.8-2.4)
[2022-09-28 08:53] LABS: CREATININE 0.6 mg/dL (0.55-1.3); PHOSPHOROUS 3.5 mg/dL (2.5-4.9)
[2022-09-28 08:55] LABS: BILIRUBIN,TOTAL 0.5 mg/dL (0.2-1); TOT PROT 6.4 g/dl (6.4-8.2)
[2022-09-28] MEDS: HYDROCHLOROTHIAZIDE 25 MG TABLET (FP) PO SCH (09:33)
[2022-09-28] MEDS: AMIODARONE HCL 200 MG TABLET PO SCH (09:34)
[2022-09-28] MEDS: GABAPENTIN 100 MG CAPSULE PO SCH ×2 (09:34→23:39)
[2022-09-28] MEDS: LISINOPRIL 20 MG TABLET PO SCH (09:34)
[2022-09-28] MEDS: ENOXAPARIN NA (PORCINE) 80 MG/0.8 ML DISP.SYRIN SQ SCH ×2 (09:36→21:12)
[2022-09-28] MEDS: CHOLESTYRAMINE/SUCROSE 4 GM PACKET PO SCH ×2 (11:47→21:17)
[2022-09-28] MEDS ORDERED: amLODIPine BESYLATE 5 MG TABLET (FP) PO ONE (16:50)
[2022-09-28] MEDS: WARFARIN NA 3 MG TABLET PO SCH (17:24)
[2022-09-28] MEDS: ATORVASTATIN CA 40 MG TABLET (FP) PO SCH (21:12)
[2022-09-28] MEDS: GABAPENTIN 300 MG CAPSULE PO SCH (21:17)
[2022-09-28] MEDS: INSULIN (LEVEMIR) 100 UNITS/ML UNITS SQ SCH (22:44)
[2022-09-29] MEDS: ACETAMINOPHEN 325 MG TABLET (FP) PO PRN (06:41)
[2022-09-29] MEDS: LEVOTHYROXINE NA 88 MCG TABLET (FP) PO SCH (06:42)
[2022-09-29] MEDS: INSULIN SLIDING SCALE (NOVOLOG) 1 VIAL SQ SCH ×4 (06:56→22:34)
[2022-09-29 08:15] LABS: HEMATOCRIT 41.8 % (32.4-45.2); MCH 27.6 pg (25.7-33.7); MCHC 33.4 g/dl (32.0-36.0); MEAN CELL VOLUME 82.7 fl (80-96); MEAN PLT VOLUME 8.7 fl (7.5-11.1); PLATELET COUNT 212 10^3/uL (134-434); RBC 5.06 M/mm3 (3.60-5.2); RDW 15.5 % (11.6-15.6); WHITE BLOOD COUNT 6.3 K/mm3 (4.0-10.0)
[2022-09-29 08:18] LABS: INR 1.27 (0.83-1.09); PROTHROMBIN TIME (PATIENT) 14.7 SEC (9.7-13.0)
[2022-09-29 08:21] LABS: ACTIVATED PTT 37.6 SECONDS (25.2-36.5)
[2022-09-29 08:49] LABS: BLOOD UREA NITROGEN 18.7 mg/dL (7-18)
[2022-09-29 08:50] LABS: MAGNESIUM 1.9 mg/dL (1.8-2.4)
[2022-09-29 08:52] LABS: CALCIUM 9.2 mg/dL (8.5-10.1); CREATININE 0.6 mg/dL (0.55-1.3); PHOSPHOROUS 3.4 mg/dL (2.5-4.9)
[2022-09-29] MEDS: ENOXAPARIN NA (PORCINE) 80 MG/0.8 ML DISP.SYRIN SQ SCH ×2 (09:27→22:21)
[2022-09-29] MEDS: LISINOPRIL 20 MG TABLET PO SCH (09:27)
[2022-09-29] MEDS: AMIODARONE HCL 200 MG TABLET PO SCH (09:28)
[2022-09-29] MEDS: HYDROCHLOROTHIAZIDE 25 MG TABLET (FP) PO SCH (09:28)
[2022-09-29] MEDS: GABAPENTIN 100 MG CAPSULE PO SCH ×2 (09:29→22:22)
[2022-09-29] MEDS: CHOLESTYRAMINE/SUCROSE 4 GM PACKET PO SCH ×2 (09:30→22:26)
[2022-09-29] MEDS ORDERED: ACETAMINOPHEN 1000 MG/100 ML BAG IVPB ONE (10:19)
[2022-09-29] MEDS: WARFARIN NA 3 MG TABLET PO SCH (18:28)
[2022-09-29] MEDS ORDERED: hydrALAZINE HCL 20 MG/ML VIAL IVPUSH ONE (18:29)
[2022-09-29] MEDS ORDERED: hydrALAZINE HCL 20 MG/ML VIAL ONE (18:39)
[2022-09-29] MEDS ORDERED: ACETAMINOPHEN 325 MG TABLET (FP) PO ONE (21:21)
[2022-09-29] MEDS: ATORVASTATIN CA 40 MG TABLET (FP) PO SCH (22:21)
[2022-09-29] MEDS: GABAPENTIN 300 MG CAPSULE PO SCH (22:22)
[2022-09-29] MEDS: INSULIN (LEVEMIR) 100 UNITS/ML UNITS SQ SCH (22:35)
[2022-09-30] MEDS ORDERED: ACETAMINOPHEN 325 MG TABLET (FP) PO ONE (02:10)
[2022-09-30] MEDS: LEVOTHYROXINE NA 88 MCG TABLET (FP) PO SCH (07:03)
[2022-09-30 09:47] LABS: INR 1.66 (0.83-1.09); PROTHROMBIN TIME (PATIENT) 19.2 SEC (9.7-13.0)
[2022-09-30] MEDS: AMIODARONE HCL 200 MG TABLET PO SCH (09:47)
[2022-09-30] MEDS: LISINOPRIL 20 MG TABLET PO SCH (09:47)
[2022-09-30] MEDS: HYDROCHLOROTHIAZIDE 25 MG TABLET (FP) PO SCH (09:48)
[2022-09-30] MEDS: GABAPENTIN 100 MG CAPSULE PO SCH ×2 (09:48→21:51)
[2022-09-30] MEDS: ENOXAPARIN NA (PORCINE) 80 MG/0.8 ML DISP.SYRIN SQ SCH ×2 (09:48→21:51)
[2022-09-30] MEDS: CHOLESTYRAMINE/SUCROSE 4 GM PACKET PO SCH ×2 (09:50→21:53)
[2022-09-30] MEDS ORDERED: amLODIPine BESYLATE 5 MG TABLET (FP) PO SCH ×2 (10:00→12:31)
[2022-09-30] MEDS ORDERED: ACETAMINOPHEN 1000 MG/100 ML BAG IVPB PRN (10:15)
[2022-09-30] MEDS: INSULIN SLIDING SCALE (NOVOLOG) 1 VIAL SQ SCH ×3 (12:28→22:08)
[2022-09-30] MEDS ORDERED: amLODIPine BESYLATE 5 MG TABLET (FP) PO ONE (12:31)
[2022-09-30] MEDS: WARFARIN NA 3 MG TABLET PO SCH (18:22)
[2022-09-30] MEDS: oxyCODONE HCL 5 MG TABLET PO PRN ×2 (18:23→21:49)
[2022-09-30] MEDS: ATORVASTATIN CA 40 MG TABLET (FP) PO SCH (21:51)
[2022-09-30] MEDS: GABAPENTIN 300 MG CAPSULE PO SCH (21:53)
[2022-09-30] MEDS: INSULIN (LEVEMIR) 100 UNITS/ML UNITS SQ SCH (22:06)
[2022-10-01] MEDS: oxyCODONE HCL 5 MG TABLET PO PRN ×3 (04:40→21:00)
[2022-10-01] MEDS: INSULIN SLIDING SCALE (NOVOLOG) 1 VIAL SQ SCH ×5 (06:56→22:32)
[2022-10-01] MEDS: LEVOTHYROXINE NA 88 MCG TABLET (FP) PO SCH (07:32)
[2022-10-01 07:54] LABS: HEMATOCRIT 41.1 % (32.4-45.2); MCH 28.1 pg (25.7-33.7); MEAN CELL VOLUME 82.6 fl (80-96); MEAN PLT VOLUME 8.3 fl (7.5-11.1); PLATELET COUNT 201 10^3/uL (134-434); RBC 4.98 M/mm3 (3.60-5.2); RDW 15.4 % (11.6-15.6); WHITE BLOOD COUNT 7.2 K/mm3 (4.0-10.0)
[2022-10-01 08:18] LABS: ALBUMIN 3.3 g/dl (3.4-5.0); BLOOD UREA NITROGEN 17.6 mg/dL (7-18); CALCIUM 8.8 mg/dL (8.5-10.1); MAGNESIUM 1.9 mg/dL (1.8-2.4)
[2022-10-01 08:21] LABS: BILIRUBIN,TOTAL 0.7 mg/dL (0.2-1); TOT PROT 6.8 g/dl (6.4-8.2)
[2022-10-01 08:22] LABS: PHOSPHOROUS 3.5 mg/dL (2.5-4.9)
[2022-10-01 08:24] LABS: INR 2.1 (0.83-1.09); PROTHROMBIN TIME (PATIENT) 24.2 SEC (9.7-13.0)
[2022-10-01 08:34] LABS: CREATININE 0.6 mg/dL (0.55-1.3)
[2022-10-01] MEDS: CHOLESTYRAMINE/SUCROSE 4 GM PACKET PO SCH ×2 (10:32→23:00)
[2022-10-01] MEDS: amLODIPine BESYLATE 10 MG TABLET (FP) PO SCH (10:33)
[2022-10-01] MEDS: AMIODARONE HCL 200 MG TABLET PO SCH (10:33)
[2022-10-01] MEDS: GABAPENTIN 100 MG CAPSULE PO SCH ×2 (10:33→22:33)
[2022-10-01] MEDS: LISINOPRIL 20 MG TABLET PO SCH (10:33)
[2022-10-01] MEDS: HYDROCHLOROTHIAZIDE 25 MG TABLET (FP) PO SCH (10:33)
[2022-10-01] MEDS: ENOXAPARIN NA (PORCINE) 80 MG/0.8 ML DISP.SYRIN SQ SCH ×2 (10:34→22:25)
[2022-10-01] MEDS: WARFARIN NA 3 MG TABLET PO SCH (18:06)
[2022-10-01] MEDS: GABAPENTIN 300 MG CAPSULE PO SCH (22:25)
[2022-10-01] MEDS: ATORVASTATIN CA 40 MG TABLET (FP) PO SCH (22:25)
[2022-10-01] MEDS: INSULIN (LEVEMIR) 100 UNITS/ML UNITS SQ SCH (22:33)
[2022-10-02] MEDS: oxyCODONE HCL 5 MG TABLET PO PRN ×3 (01:30→15:09)
[2022-10-02 01:56] VITALS: RESP 20
[2022-10-02] MEDS: LEVOTHYROXINE NA 88 MCG TABLET (FP) PO SCH (06:23)
[2022-10-02] MEDS: INSULIN SLIDING SCALE (NOVOLOG) 1 VIAL SQ SCH ×3 (06:36→15:59)
[2022-10-02 07:39] LABS: HEMATOCRIT 41.5 % (32.4-45.2); HEMOGLOBIN 14.2 GM/dL (10.7-15.3); MCH 30.3 pg (25.7-33.7); MCHC 34.3 g/dl (32.0-36.0); MEAN CELL VOLUME 88.5 fl (80-96); MEAN PLT VOLUME 8.9 fl (7.5-11.1); PLATELET COUNT 147 10^3/uL (134-434); RBC 4.69 M/mm3 (3.60-5.2); RDW 13.2 % (11.6-15.6)
[2022-10-02 07:50] LABS: INR 1.13 (0.83-1.09); PROTHROMBIN TIME (PATIENT) 13.1 SEC (9.7-13.0)
[2022-10-02 08:23] LABS: ALBUMIN 3.2 g/dl (3.4-5.0); BLOOD UREA NITROGEN 22.7 mg/dL (7-18); CALCIUM 8.3 mg/dL (8.5-10.1); MAGNESIUM 2.4 mg/dL (1.8-2.4)
[2022-10-02 08:25] LABS: PHOSPHOROUS 2.3 mg/dL (2.5-4.9)
[2022-10-02 08:27] LABS: BILIRUBIN,TOTAL 0.5 mg/dL (0.2-1); CREATININE 1.3 mg/dL (0.55-1.3)
[2022-10-02] MEDS ORDERED: WARFARIN NA 3 MG TABLET PO SCH (08:44)
[2022-10-02] MEDS: AMIODARONE HCL 200 MG TABLET PO SCH (09:39)
[2022-10-02] MEDS: amLODIPine BESYLATE 10 MG TABLET (FP) PO SCH (09:39)
[2022-10-02] MEDS: HYDROCHLOROTHIAZIDE 25 MG TABLET (FP) PO SCH (09:39)
[2022-10-02] MEDS: ENOXAPARIN NA (PORCINE) 80 MG/0.8 ML DISP.SYRIN SQ SCH (09:40)
[2022-10-02] MEDS: GABAPENTIN 100 MG CAPSULE PO SCH (09:40)
[2022-10-02] MEDS: LISINOPRIL 20 MG TABLET PO SCH (09:40)
[2022-10-02] MEDS: CHOLESTYRAMINE/SUCROSE 4 GM PACKET PO SCH (09:42)
[2022-10-02] MEDS ORDERED: POTASSIUM CHLORIDE TABS 20 MEQ TABLET.ER (FP) PO SCH (10:00)
[2022-10-02] MEDS ORDERED: INSULIN (LEVEMIR) 100 UNITS/ML UNITS SQ ONE (13:09)
[2022-10-02 16:16] VITALS: BP 142/63; PULSE 66; TEMP 98
[2022-10-03] MEDS ORDERED: INSULIN (LEVEMIR) 100 UNITS/ML UNITS SQ SCH (07:00)
== END 2022-10-02 18:13 | disposition home health service (06) ==
LOC: JER 14:16 → JASUSAT 09-26 00:09 → J8W 09-26 00:09 → UNDOADMOB 09-26 00:52 → JERBED 09-26 00:52 → J4W 09-26 14:08
PROVIDERS: ADMIT Internal Medicine; ATTEND Internal Medicine
PROC: 3E033NZ Introduction of Analgesics, Hypnotics, Sedatives into Peripheral Vein, Percutaneous Approach (ICD-10-PCS; principal; 2022-09-26)
PROC: 3E023GC Introduction of Other Therapeutic Substance into Muscle, Percutaneous Approach (ICD-10-PCS; 2022-09-26)
PROC: 3E033GC Introduction of Other Therapeutic Substance into Peripheral Vein, Percutaneous Approach (ICD-10-PCS; 2022-09-26)
PROC: 3E013VG Introduction of Insulin into Subcutaneous Tissue, Percutaneous Approach (ICD-10-PCS; 2022-09-26)
DX: I16.0 Hypertensive urgency (principal); E11.9 Type 2 diabetes mellitus without complications; E78.5 Hyperlipidemia, unspecified; I00 Rheumatic fever without heart involvement; R00.1 Bradycardia, unspecified; R01.1 Cardiac murmur, unspecified; Z29.8 Encounter for other specified prophylactic measures; Z86.73 Personal history of transient ischemic attack (TIA), and cerebral infarction without residual deficits; M62.81 Muscle weakness (generalized); E03.9 Hypothyroidism, unspecified; R60.9 Edema, unspecified; Z98.890 Other specified postprocedural states
CPT/HCPCS: 0241U-QW; 36415; 70450-TC; 70496-TC; 70498-TC; 71045-TC-FY; 80048; 80053; 80061; 81003; 82550; 82962; 83036; 83735; 84100; 84484; 85025; 85027; 85610; 85730; 86850; 86900; 86901; 93005; 93010; 97116-GP; 97162-GP; 99285-25; C9803-CS; G0378; J1644; Q9967; U0003; U0005

== ENCOUNTER 2022-12-11 14:11 | Emergency (ER) | payer OTHER ==
[2022-12-11 14:49] VITALS: TEMP 98.7; BMI 27.4
[2022-12-11 17:10] LABS: BASO % 0.8 % (0-2.0); EOS % 3.5 % (0-4.5); HEMATOCRIT 43.3 % (32.4-45.2); HEMOGLOBIN 14.4 GM/dL (10.7-15.3); LYMPH % 20.5 % (8-40); MCH 27.1 pg (25.7-33.7); MCHC 33.4 g/dl (32.0-36.0); MEAN CELL VOLUME 81.1 fl (80-96); MEAN PLT VOLUME 8.8 fl (7.5-11.1); MONO % 10.8 % (3.8-10.2); NEUT % 64.4 % (42.8-82.8); PLATELET COUNT 201 10^3/uL (134-434); RBC 5.34 M/mm3 (3.60-5.2); RDW 15.3 % (11.6-15.6); WHITE BLOOD COUNT 6.3 K/mm3 (4.0-10.0)
[2022-12-11 17:18] LABS: INR 3.18 (0.83-1.09); PROTHROMBIN TIME (PATIENT) 36.5 SEC (9.7-13.0)
[2022-12-11 17:21] LABS: ACTIVATED PTT 75.7 SECONDS (25.2-36.5)
[2022-12-11 17:22] LABS: POTASSIUM 4.5 mmol/L (3.5-5.1)
[2022-12-11 17:24] LABS: CALCIUM 9.3 mg/dL (8.5-10.1)
[2022-12-11 17:25] LABS: ALBUMIN 3.5 g/dl (3.4-5.0); BLOOD UREA NITROGEN 11.3 mg/dL (7-18)
[2022-12-11 17:28] LABS: CREATININE 0.8 mg/dL (0.55-1.3)
[2022-12-11 17:29] LABS: BILIRUBIN,TOTAL 0.4 mg/dL (0.2-1); TOT PROT 7.5 g/dl (6.4-8.2)
[2022-12-11 21:14] VITALS: BP 175/86; PULSE 77; RESP 16
== END 2022-12-11 21:21 | disposition home or self-care (01) ==
LOC: JER 14:11
DX: R05.9 Cough, unspecified (principal); R07.89 Other chest pain; R06.02 Shortness of breath; R00.2 Palpitations; R11.0 Nausea; R42 Dizziness and giddiness; R09.3 Abnormal sputum; Z20.822 Contact with and (suspected) exposure to COVID-19
CPT/HCPCS: 0241U-QW; 36415; 71045-TC-FY; 80053; 84484; 85025; 85610; 85730; 93005; 93010; 99285-25

== ENCOUNTER 2024-07-15 02:09 | Inpatient (IN) | payer OTHER ==
[2024-07-15 04:21] LABS: BASO % 1.1 % (0-2.0); EOS % 2.7 % (0-4.5); HEMATOCRIT 41.9 % (32.4-45.2); HEMOGLOBIN 13.7 GM/dL (10.7-15.3); LYMPH % 17.1 % (8-40); MCH 26.8 pg (25.7-33.7); MCHC 32.7 g/dl (32.0-36.0); MEAN CELL VOLUME 81.9 fl (80-96); MEAN PLT VOLUME 8.6 fl (7.5-11.1); MONO % 7.5 % (3.8-10.2); NEUT % 71.6 % (42.8-82.8); PLATELET COUNT 219 10^3/uL (134-434); RBC 5.12 M/mm3 (3.60-5.2); RDW 16.5 % (11.6-15.6); WHITE BLOOD COUNT 6.1 K/mm3 (4.0-10.0)
[2024-07-15 04:27] LABS: URINE APPEARANCE Error; URINE BILIRUBIN NEGATIVE (NEGATIVE); URINE COLOR YELLOW; URINE GLUCOSE (UA) 3+ (NEGATIVE); URINE KETONE NEGATIVE (NEGATIVE); URINE LEUK ESTERASE NEGATIVE (NEGATIVE); URINE NITRITE NEGATIVE (NEGATIVE); URINE PROTEIN NEGATIVE (NEGATIVE); URINE UROBILINOGEN 0.2 mg/dL (0.2-1.0)
[2024-07-15 04:33] LABS: INR 1.59 (0.83-1.09)
[2024-07-15 04:36] LABS: ACTIVATED PTT 39.4 SECONDS (25.2-36.5)
[2024-07-15 04:47] LABS: POTASSIUM 3.6 mmol/L (3.5-5.1)
[2024-07-15 04:49] LABS: ALBUMIN 3.3 g/dl (3.4-5.0); CALCIUM 8.8 mg/dL (8.5-10.1)
[2024-07-15 04:50] LABS: BLOOD UREA NITROGEN 15.3 mg/dL (7-18)
[2024-07-15 04:52] LABS: CREATININE 0.7 mg/dL (0.55-1.3)
[2024-07-15 04:54] LABS: TOT PROT 6.8 g/dl (6.4-8.2)
[2024-07-15 04:55] LABS: BILIRUBIN,TOTAL 0.7 mg/dL (0.2-1)
[2024-07-15] MEDS: SODIUM CHLORIDE 1,000 ML IV SCH (06:01)
[2024-07-15] MEDS ORDERED: ASPIRIN 81 MG CHEWABLE TABLETS ONE (07:03)
[2024-07-15] MEDS ORDERED: ATORVASTATIN CA 80 MG TABLET (FP) ONE (07:03)
[2024-07-15] MEDS: ATORVASTATIN CA 80 MG TABLET (FP) PO ONE (07:05)
[2024-07-15] MEDS: ASPIRIN 81 MG CHEWABLE TABLETS PO ONE (07:05)
[2024-07-15] MEDS: LEVOTHYROXINE NA 100 MCG TABLET (FP) PO SCH (10:19)
[2024-07-15] MEDS: WARFARIN NA 5 MG TABLET PO ONE (10:19)
[2024-07-15] MEDS: ACETAMINOPHEN 325 MG TABLET (FP) PO ONE (10:58)
[2024-07-15 11:22] VITALS: BMI 28.1
[2024-07-15] MEDS: INSULIN ASPART SLIDING SCALE (NOVOLOG) 1 VIAL SQ SCH (11:58)
[2024-07-15] MEDS: ATORVASTATIN CA 40 MG TABLET (FP) PO SCH (21:25)
[2024-07-16 07:46] LABS: HEMATOCRIT 42.8 % (32.4-45.2); HEMOGLOBIN 13.6 GM/dL (10.7-15.3); MCH 26.3 pg (25.7-33.7); MCHC 31.8 g/dl (32.0-36.0); MEAN CELL VOLUME 82.7 fl (80-96); PLATELET COUNT 230 10^3/uL (134-434); RBC 5.17 M/mm3 (3.60-5.2); RDW 16.4 % (11.6-15.6)
[2024-07-16 07:53] LABS: INR 2.12 (0.83-1.09); PROTHROMBIN TIME (PATIENT) 23.4 SEC (9.7-13.0)
[2024-07-16 07:54] LABS: POTASSIUM 3.7 mmol/L (3.5-5.1)
[2024-07-16 07:58] LABS: ALBUMIN 3.2 g/dl (3.4-5.0); BLOOD UREA NITROGEN 14.4 mg/dL (7-18); CALCIUM 8.4 mg/dL (8.5-10.1); MAGNESIUM 1.9 mg/dL (1.8-2.4)
[2024-07-16 08:01] LABS: CREATININE 0.6 mg/dL (0.55-1.3); PHOSPHOROUS 3.6 mg/dL (2.5-4.9)
[2024-07-16 08:03] LABS: BILIRUBIN,TOTAL 0.6 mg/dL (0.2-1); TOT PROT 6.4 g/dl (6.4-8.2)
[2024-07-16] MEDS: EMPAGLIFLOZIN (JARDIANCE) 10 MG TABLET PO SCH (13:04)
[2024-07-16] MEDS: WARFARIN NA 5 MG TABLET PO SCH (17:58)
[2024-07-16] MEDS: ATORVASTATIN CA 40 MG TABLET (FP) PO SCH (21:28)
[2024-07-16] MEDS: GABAPENTIN 300 MG CAPSULE PO SCH (21:28)
[2024-07-17] MEDS: EMPAGLIFLOZIN (JARDIANCE) 10 MG TABLET PO SCH (06:24)
[2024-07-17 07:38] LABS: HEMATOCRIT 42.6 % (32.4-45.2); HEMOGLOBIN 13.7 GM/dL (10.7-15.3); MCH 26.5 pg (25.7-33.7); MCHC 32.1 g/dl (32.0-36.0); MEAN CELL VOLUME 82.6 fl (80-96); MEAN PLT VOLUME 8.8 fl (7.5-11.1); PLATELET COUNT 235 10^3/uL (134-434); RBC 5.16 M/mm3 (3.60-5.2); RDW 15.9 % (11.6-15.6); WHITE BLOOD COUNT 5.9 K/mm3 (4.0-10.0)
[2024-07-17 07:47] LABS: INR 1.79 (0.83-1.09); PROTHROMBIN TIME (PATIENT) 20.2 SEC (9.7-13.0)
[2024-07-17 08:01] LABS: POTASSIUM 3.7 mmol/L (3.5-5.1)
[2024-07-17 08:10] LABS: ALBUMIN 3.2 g/dl (3.4-5.0); CALCIUM 9.2 mg/dL (8.5-10.1); PHOSPHOROUS 3.6 mg/dL (2.5-4.9)
[2024-07-17 08:11] LABS: BLOOD UREA NITROGEN 14.8 mg/dL (7-18); MAGNESIUM 2.1 mg/dL (1.8-2.4)
[2024-07-17 08:12] LABS: BILIRUBIN,TOTAL 0.6 mg/dL (0.2-1); TOT PROT 6.6 g/dl (6.4-8.2)
[2024-07-17 08:14] LABS: CREATININE 0.6 mg/dL (0.55-1.3)
[2024-07-17] MEDS: ENOXAPARIN NA (PORCINE) 80 MG/0.8 ML DISP.SYRIN SQ SCH (10:22)
[2024-07-17] MEDS: amLODIPine BESYLATE 5 MG TABLET (FP) PO SCH (10:23)
[2024-07-17] MEDS: LISINOPRIL 20 MG TABLET PO SCH (10:23)
[2024-07-18 08:24] LABS: INR 1.9 (0.83-1.09); PROTHROMBIN TIME (PATIENT) 21.5 SEC (9.7-13.0)
[2024-07-18 08:37] LABS: HEMATOCRIT 40.9 % (32.4-45.2); HEMOGLOBIN 13.3 GM/dL (10.7-15.3); MCH 26.6 pg (25.7-33.7); MCHC 32.4 g/dl (32.0-36.0); MEAN PLT VOLUME 9.1 fl (7.5-11.1); PLATELET COUNT 230 10^3/uL (134-434); RBC 4.99 M/mm3 (3.60-5.2); RDW 16.2 % (11.6-15.6); WHITE BLOOD COUNT 6.1 K/mm3 (4.0-10.0)
[2024-07-18 08:44] LABS: POTASSIUM 4.1 mmol/L (3.5-5.1)
[2024-07-18 08:47] LABS: ALBUMIN 3.3 g/dl (3.4-5.0); BLOOD UREA NITROGEN 20.1 mg/dL (7-18); CALCIUM 8.8 mg/dL (8.5-10.1); MAGNESIUM 2.1 mg/dL (1.8-2.4)
[2024-07-18 08:50] LABS: CREATININE 0.7 mg/dL (0.55-1.3); PHOSPHOROUS 4.3 mg/dL (2.5-4.9)
[2024-07-18 08:52] LABS: BILIRUBIN,TOTAL 0.4 mg/dL (0.2-1); TOT PROT 6.5 g/dl (6.4-8.2)
[2024-07-18 09:38] VITALS: TEMP 97.5
[2024-07-18 15:55] VITALS: BP 142/79; PULSE 65; RESP 20
== END 2024-07-18 17:17 | disposition home or self-care (01) | DRG 57 ==
LOC: JER 02:09 → JERBED 05:09 → J4W 08:28
PROVIDERS: ADMIT Internal Medicine; ATTEND Internal Medicine
DX: I69.898 Other sequelae of other cerebrovascular disease (principal); I69.351 Hemiplegia and hemiparesis following cerebral infarction affecting right dominant side; I10 Essential (primary) hypertension; E03.9 Hypothyroidism, unspecified; E11.9 Type 2 diabetes mellitus without complications; Z95.2 Presence of prosthetic heart valve
CPT/HCPCS: 36415; 70450-TC; 70496-TC; 70498-TC; 80053; 80061; 81003; 82550; 82553; 82962; 83036; 83090; 83735; 84100; 84484; 85025; 85027; 85610; 85730; 86850; 86900; 86901; 93005; 93010; 93306-TC; 93880-TC; 97116-GP; 97162-GP; 99291

== ENCOUNTER 2024-12-18 14:55 | Emergency (ER) | payer MEDICARE, OTHER ==
[2024-12-18 15:08] VITALS: BP 160/61; PULSE 65; RESP 19; TEMP 98.8; BMI 25.0
[2024-12-18] MEDS ORDERED: ACETAMINOPHEN 325 MG TABLET (FP) ONE (16:32)
[2024-12-18] MEDS ORDERED: METOCLOPRAMIDE HCL 10 MG TABLET (FP) PO ONE (16:33)
[2024-12-18] MEDS: METOCLOPRAMIDE HCL 10 MG TABLET (FP) PO ONE (16:42)
[2024-12-18] MEDS: ACETAMINOPHEN 500 MG TABLET (FP) PO ONE (16:44)
[2024-12-18 17:44] LABS: POTASSIUM 4.4 mmol/L (3.5-5.1)
[2024-12-18 17:45] LABS: ALBUMIN 3.3 g/dl (3.4-5.0); CALCIUM 8.5 mg/dL (8.5-10.1)
[2024-12-18 17:47] LABS: BLOOD UREA NITROGEN 14.7 mg/dL (7-18); MAGNESIUM 1.8 mg/dL (1.8-2.4)
[2024-12-18 17:49] LABS: CREATININE 0.6 mg/dL (0.55-1.3); PHOSPHOROUS 3.2 mg/dL (2.5-4.9)
[2024-12-18 17:51] LABS: BILIRUBIN,TOTAL 0.4 mg/dL (0.2-1)
[2024-12-18 18:31] LABS: ABSOLUTE IMMATURE GRANULOCYTES 0.03 x10^3/uL (0.0-0.031); BASOPHILS # 0.07 x10^3/uL (0.01-0.08); EOSINOPHIL % 3.9 % (0.7-5.8); EOSINOPHILS # 0.23 x10^3/uL (0.04-0.36); HEMATOCRIT 43.1 % (34.1-44.9); HEMOGLOBIN 13.3 g/dL (11.2-15.7); MCHC 30.9 g/dl (32.2-35.5); MEAN CELL VOLUME 81.3 fl (79.4-94.8); MEAN PLT VOLUME 10.5 fl (9.4-12.3); MONOCYTE # 0.57 x10^3/uL (0.24-0.86); MONOCYTE % 9.5 % (4.7-12.5); PLATELET COUNT 267 x10^3/uL (182-369); RDW 15.9 % (12.4-16.4)
[2024-12-18 18:38] LABS: INR 3.43 (0.83-1.09); PROTHROMBIN TIME (PATIENT) 37.7 SEC (9.7-13.0)
[2024-12-18 18:42] LABS: ACTIVATED PTT 49.3 SECONDS (25.2-36.5)
[2024-12-18 19:40] LABS: URINE APPEARANCE CLEAR; URINE BILIRUBIN NEGATIVE (NEGATIVE); URINE COLOR YELLOW; URINE GLUCOSE (UA) 3+ (NEGATIVE); URINE KETONE NEGATIVE (NEGATIVE); URINE LEUK ESTERASE NEGATIVE (NEGATIVE); URINE NITRITE NEGATIVE (NEGATIVE); URINE PROTEIN NEGATIVE (NEGATIVE)
[2024-12-18 19:51] LABS: HCV DIAGNOSTIC IN-HOUSE W/RFLX NON-REACTIVE (NONREACTIVE); HIV INTERPRETATION NEGATIVE (NEGATIVE)
== END 2024-12-18 21:25 | disposition home or self-care (01) ==
LOC: JER 14:55
DX: R06.02 Shortness of breath (principal); R51.9 Headache, unspecified; R05.9 Cough, unspecified; H53.149 Visual discomfort, unspecified; R11.2 Nausea with vomiting, unspecified; R94.31 Abnormal electrocardiogram [ECG] [EKG]; V43.52XA Car driver injured in collision with other type car in traffic accident, initial encounter; Y92.410 Unspecified street and highway as the place of occurrence of the external cause
CPT/HCPCS: 36415; 70450-TC; 71045-TC-FY; 72125-TC; 80053; 81003; 83735; 83880; 84100; 84484; 85025; 85610; 85730; 86803; 86850; 86900; 86901; 87077; 87086; 87389; 93005; 93010; 99285-25